=== PATIENT | male | born 1975 | race American Indian/Alaskan Native ===

== ENCOUNTER 2020-04-26 13:24 | Emergency (ER) | payer OTHER, SELFPAY ==
[2020-04-26 13:35] VITALS: BP 104/61; PULSE 91; RESP 18; TEMP 36.9; O2SAT 95; BMI 35.1
--- NOTE | 2020-04-26 13:59 | CT_ITS ---
EXAMINATION: CT ABDOMEN AND PELVIS WITHOUT CONTRAST CLINICAL INFORMATION: Right-sided back pain, evaluate for kidney stone COMPARISON: CT of the abdomen and pelvis 04/09/2018 TECHNIQUE: Multidetector volumetric imaging was performed from the superior aspect of the liver through the pubic symphysis. Sagittal and coronal reformatted images were obtained on the technologist's workstation. This CT examination was performed using dose optimization techniques as appropriate, variously including the following: *Automated exposure control *Adjustment of mA and/or kV according to patient size (this includes techniques or standardized protocols for targeted exams where dose is matched to indication/reason for exam; i.e. extremities or head) *Use of iterative reconstruction technique DLP: 891 mGy-cm FINDINGS: LUNG BASES: The visualized lung bases are unremarkable. LIVER, GALLBLADDER, AND BILIARY TREE: The liver is normal in size, shape, and attenuation. No focal hepatic lesion or biliary ductal dilatation is present. The gallbladder is unremarkable with no evidence of radiopaque gallstones, gallbladder wall thickening, or obvious pericholecystic inflammatory changes. PANCREAS: Unremarkable. SPLEEN: Unremarkable. There are 2 small accessory splenules. ADRENAL GLANDS: Unremarkable. KIDNEYS AND URETERS: Again demonstrated is an atrophic right kidney. Punctate 2 mm nonobstructive, calyces in the inferior pole, similar to the prior study. Normal size and attenuation of the left kidney. Again demonstrated are 2 adjacent nonobstructive calculi in the mid polar region that together measure approximately 0.6 cm. No hydronephrosis. No perinephric stranding. BLADDER: Unremarkable. GASTROINTESTINAL TRACT: The small and large bowel are unremarkable. No evidence of obstruction or inflammatory change. The appendix is unremarkable. Large amount of stool throughout the colon. ABDOMINAL WALL: No significant hernia is appreciated. LYMPH NODES: No significant mesenteric or retroperitoneal lymphadenopathy. VASCULAR: Normal caliber of the aorta. Normal noncontrast appearance of the portal venous system and inferior vena cava. PELVIC VISCERA: The prostate and seminal vesicles are unremarkable. 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 IMPRESSION: Redemonstration of atrophic right kidney. Nonobstructive punctate calculus in the inferior pole of the right kidney and nonobstructive calculi the mid polar region of the left kidney. No hydronephrosis. Large amount of stool within the colon, that may represent constipation. No acute intra-abdominal pathology.
--- NOTE | 2020-04-26 14:36 | ED.CHESTPAIN ---
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 Risk Factors Coronary artery disease risk factors: none Related Data Previous Rx's Medication Instructions Recorded oxycodone-acetaminophen [Percocet] 1 tab PO Q8H PRN #10 tab 04/26/20 Allergies Allergy/AdvReac Type Severity Reaction Status Date / Time No Known Allergies Allergy Unverified 03/26/20 19:03 N.K.D.A. Allergy Unknown Uncoded 04/18/18 00:00 Review of Systems Review of Systems: Yes all other systems are reviewed and are negative Constitutional: Constitutional: Reports as per HPI and Reports no additional constitutional complaints Eyes: Eyes: Reports as per HPI and Reports no additional eye complaints ENT: Reports system reviewed and no additional complaints, except as documented and Reports as per HPI Cardiovascular: Cardiovascular: Reports as per HPI and Reports no additional cardiovascular complaints Respiratory: Respiratory: Reports as per HPI and Reports no additional respiratory complaints Gastrointestinal: Gastrointestinal: Reports as per HPI and Reports no additional gastrointestinal complaints Genitourinary: Genitourinary: Reports no additional male genitourinary complaints Musculoskeletal: Musculoskeletal: Reports back pain Neurologic: Reports system reviewed and no additional complaints, except as documented and Reports Abnormal speech present Psychiatric: Psychiatric: Reports no additional psychiatric complaints [facility] Past Medical History Attestation statement: The following information was validated with the patient. Medical History Hypertension Social History Social History Alcohol intake: never Smoking Status: Never smoker Use of substances other than those prescribed or required for medical reasons: No Advance Directives: No Advance Directives Information Provided: No Physical Exam Vital Signs: Vital Signs: Vital Signs Temp Pulse Resp BP Pulse Ox 04/26/20 15:19 98.3 F 63 18 97/64 97 04/26/20 13:35 98.5 F 91 18 104/61 95 Body Mass Index 35.1 Const: General: cooperative and healthy appearing Orientation/consciousness: oriented to person HENMT: Head: Yes normal to inspection Ears: hearing grossly normal bilaterally General nose exam: Normal external nose present Eyes: General: appearance normal, both eyes and all related structures Neck: Neck: Yes normal visual inspection, Yes full ROM and Yes no lymphadenopathy Chest: Chest palpation & inspection: normal inspection of the chest and normal palpation of entire chest wall Resp: Effort & Inspection: normal respiratory effort and able to speak in complete sentences Auscultation: clear to auscultation bilaterally Cardio: Jugular venous distension: no JVD Palpation: normal PMI Rate: regular rate Rhythm: regular rhythm GI: Inspection: Yes normal to inspection Palpation (GI): Soft to palpation, nontender, no guarding and not rigid : General: Yes no CVA tenderness Back/Spine/Pelvis: Back: no CVA tenderness and No back tenderness Skin: General skin exam: no rashes or lesions noted Neuro: General: oriented to person Cranial nerves: Yes CN's II-XII intact bilaterally Cognition (Neuro): normal cognition Speech: Abnormal speech present Gait exam (Neuro): Normal gait present Extrem: General: Yes normal to inspection Course Course Course Narrative: 45-year-old male with history of hypertension presented with chest pain for few months/ weeks which is nonspecific, he also been complaining of lower back pain ( 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 Patient stated that the back pain started after he coughed felt something pop in his back cause the pain. Will check EKG, troponin, CPK (to rule out rhabdomyolysis), CT rule out kidney related pain versus hematoma in the psoas muscle. MDM - Chest Pain MDM Narrative Medical decision making narrative: assessment and plan. 45-year-old male presented with few months of chest pain, patient has unremarkable EKG and negative troponin. Patient also is complaining of back pain for the last few weeks no trauma, CT of the abdomen and pelvis ruled out kidney issues CT of the abdomen and pelvis also rule out acute fracture of the lumbar spine. Will discharge patient with prescription of Percocet. Follow-up with PCP. Lab Data Result diagrams: 04/26/20 14:35 04/26/20 14:35 Labs: Lab Results 04/26/20 04/26/20 04/26/20 Range/Units 14:35 14:35 14:35 WBC 6.2 (4.8-10.8) X10*3/uL RBC 4.82 (4.60-5.80) X10*6/uL Hgb 14.0 (14.0-18.0) g/dl Hct 42.7 (42-52) % MCV 88.6 (80-98) fL MCH 29.0 (27.0-33.0) pg MCHC 32.8 (31.0-36.0) g/dl RDW 12.6 (11.0-16.0) % Plt Count 226 (160-400) X10*3/uL MPV 9.4 (9.4-12.4) fL Absolute Nucleated RBC 0.000 (0.0-0.012) X10*3/uL Nucleated RBC % (auto) 0.0 (0.0-0.2) /100WBC Sodium 142 (135-145) mmol/L Potassium 5.0 (3.3-5.1) mmol/l Chloride 101 (96-108) mmol/L Carbon Dioxide 35 H (22-29) mmol/L Anion Gap 11 L (12-20) BUN 13 (9-16) mg/dL Creatinine 1.00 (0.5-1.4) mg/dL Estim Creat Clear Calc 115.3 Estimated GFR > 60 Random Glucose 104 (60-115) mg/dL Calcium 9.9 (8.4-10.2) mg/dL Total Bilirubin (0.0-1.0) mg/dL Direct Bilirubin (0.0-0.5) mg/dL AST (5-37) U/L ALT (0-40) U/L Alkaline Phosphatase (39-117) U/L Total Creatine Kinase Cancelled 63 Troponin I High Sens (<3.5-35.0) ng/L Total Protein (6.5-8.0) g/dL Albumin (3.5-5.0) g/dL Lipase (8-78) U/L Urine Color Urine Appearance Urine pH (5.0-8.0) Ur Specific [place] (1.005-1.025) Urine Protein (NEG-TRACE) MG/DL Urine Glucose (UA) (NEG) MG/DL Urine Ketones (NEG) MG/DL Urine Blood (NEG) Urine Nitrite (NEG) Ur Leukocyte Esterase (NEG) Urine RBC (0) /HPF Urine WBC (0-4) /HPF Ur Squamous Epith Cells /LPF Urine Bacteria /LPF 04/26/20 04/26/20 04/26/20 Range/Units 14:35 14:35 14:49 WBC (4.8-10.8) X10*3/uL RBC (4.60-5.80) X10*6/uL Hgb (14.0-18.0) g/dl Hct (42-52) % MCV (80-98) fL MCH (27.0-33.0) pg MCHC (31.0-36.0) g/dl RDW (11.0-16.0) % Plt Count (160-400) X10*3/uL MPV (9.4-12.4) fL Absolute Nucleated RBC (0.0-0.012) X10*3/uL Nucleated RBC % (auto) (0.0-0.2) /100WBC Sodium (135-145) mmol/L Potassium (3.3-5.1) mmol/l Chloride (96-108) mmol/L Carbon Dioxide (22-29) mmol/L Anion Gap (12-20) BUN (9-16) mg/dL Creatinine (0.5-1.4) mg/dL Estim Creat Clear Calc Estimated GFR Random Glucose (60-115) mg/dL Calcium (8.4-10.2) mg/dL Total Bilirubin 0.2 (0.0-1.0) mg/dL Direct Bilirubin < 0.2 (0.0-0.5) mg/dL AST 35 (5-37) U/L ALT 39 (0-40) U/L Alkaline Phosphatase 100 (39-117) U/L Total Creatine Kinase Troponin I High Sens < 3.5 (<3.5-35.0) ng/L Total Protein 7.2 (6.5-8.0) g/dL Albumin 4.0 (3.5-5.0) g/dL Lipase 14 (8-78) U/L Urine Color YELLOW Urine Appearance HAZY Urine pH 6.0 (5.0-8.0) Ur Specific [place] >= 1.030 H (1.005-1.025) Urine Protein NEG (NEG-TRACE) MG/DL Urine Glucose (UA) NEG (NEG) MG/DL Urine Ketones 5 (NEG) MG/DL Urine Blood TRACE (NEG) Urine Nitrite NEG (NEG) Ur Leukocyte Esterase NEG (NEG) Urine RBC 0-2 (0) /HPF Urine WBC 0-2 (0-4) /HPF Ur Squamous Epith Cells NONE /LPF Urine Bacteria NONE /LPF Imaging Data CT scan - abdomen: Radiologist's impression: No acute pathology. ECG Data ECG #1: Interpretation: normal sinus rhythm at 72 beats per minutes, normal axis deviation, normal intervals, no ST-T elevation. Discharge Plan Discharge Clinical Impression: Chest pain Qualifiers: Chest pain type: unspecified Qualified Code(s): R07.9 - Chest pain, unspecified Back pain Qualifiers: Back pain location: low back pain Chronicity: chronic Patient Disposition: Home, Self-Care Instructions: Chest Pain (ED), Acute Low Back Pain (ED) Prescriptions: New oxycodone-acetaminophen [Percocet] 5-325 mg tablet 1 tab PO Q8H PRN (Reason: pain) Qty: 10 RF: 0 Referrals: Cynthia Adhikari MD [Primary Care Provider] - 2 days Stand Alone Forms: Work/School Release
--- NOTE | 2020-04-26 14:37 | ECG_ITS ---
Test Reason : BACKPAIN Blood Pressure : / mmHG Vent. Rate : 072 BPM Atrial Rate : 072 BPM P-R Int : 160 ms QRS Dur : 090 ms QT Int : 390 ms P-R-T Axes : 041 008 -03 degrees QTc Int : 427 ms Normal sinus rhythm Nonspecific T wave abnormality Inferior leads Abnormal ECG When compared with ECG of 22-MAY-2018 21:06, No significant change was found Referred By: Mary Nelson Electronically Signed By:AMANDO JAMISON MD
[2020-04-26 14:44] LABS: Hematocrit 42.7 % (42-52); Mean Corpuscular HGB Conc 32.8 g/dl (31.0-36.0); Mean Corpuscular Volume 88.6 fL (80-98); Mean Platelet Volume 9.4 fL (9.4-12.4); Platelet Count 226 X10*3/uL (160-400); Red Blood Count 4.82 X10*6/uL (4.60-5.80); Red Cell Distribution Width 12.6 % (11.0-16.0); White Blood Count 6.2 X10*3/uL (4.8-10.8)
[2020-04-26 14:47] LABS: Glucose Urine UA NEG (NEG); Leukocyte Esterase Urine NEG (NEG); Nitrite Urine NEG (NEG); Specific Gravity - Urine >= 1.030 (1.005-1.025); Urine Blood TRACE (NEG); Urine Ketones 5 MG/DL (NEG); Urine Protein NEG (NEG-TRACE)
[2020-04-26 14:48] LABS: Appearance Urine HAZY; Color Urine YELLOW
[2020-04-26 14:58] LABS: RBC Urine 0-2 /HPF (0); WBC Urine 0-2 /HPF (0-4)
[2020-04-26] MEDS: Ibuprofen 600 MG TABLET PO (15:08)
[2020-04-26] MEDS: oxyCODONE HCl Immed Release 5 MG TABLET PO (15:09)
[2020-04-26 15:11] LABS: Anion Gap 11 (12-20); Blood Urea Nitrogen 13 mg/dL (9-16); Calcium 9.9 mg/dL (8.4-10.2); Carbon Dioxide 35 mmol/L (22-29); Chloride 101 mmol/L (96-108); Creatinine Clr Calc Pharmacy 115.3; Estimated Glomerular Filt Rate > 60; Glucose Random 104 mg/dL (60-115); Sodium 142 mmol/L (135-145)
--- NOTE | 2020-04-26 15:11 | PC.NURSE ---
PT WAS MEDICATED FOR PAIN AFTER RETURN FROM CT SCAN
[2020-04-26 15:12] LABS: Alanine Aminotransferase 39 U/L (0-40); Alkaline Phosphatase 100 U/L (39-117); Aspartate Amino Transferase 35 U/L (5-37); Bilirubin Direct < 0.2 mg/dL (0.0-0.5); Bilirubin Total 0.2 mg/dL (0.0-1.0); Lipase 14 U/L (8-78); Total Protein 7.2 g/dL (6.5-8.0)
[2020-04-26 15:19] VITALS: BP 97/64; PULSE 63; RESP 18; TEMP 36.8; O2SAT 97
[2020-04-26 15:39] LABS: Troponin-I High Sensitivity < 3.5 ng/L (<3.5-35.0)
[2020-04-26 16:00] VITALS: BP 118/75; PULSE 74; RESP 16; TEMP 36.6; O2SAT 96
== END 2020-04-26 16:28 | disposition home or self-care (01) ==
PROVIDERS: Emergency Provider Emergency Medicine; PCP Internal Medicine
DX: R07.9 Chest pain, unspecified (principal); G89.29 Other chronic pain; M54.5 Low back pain; I10 Essential (primary) hypertension
CPT/HCPCS: 36415; 74176; 80048; 80076; 81001; 82550; 83690; 84484; 85027; 93005; 99284; 99285

== ENCOUNTER 2020-05-04 12:08 | Emergency (ER) | payer OTHER, SELFPAY ==
[2020-05-04 13:29] VITALS: BP 103/61; PULSE 86; RESP 16; TEMP 36.9; O2SAT 97; BMI 36.5
--- NOTE | 2020-05-04 15:20 | ED.GENADULT ---
HPI - General Adult General Chief complaint: General Medical Stated complaint: BACK PAIN Time Seen by Provider: 05/04/20 14:22 Source: patient Mode of arrival: ambulatory History of Present Illness HPI narrative: 45-year-old male with a past medical history of hypertension presenting to ED complaining of bilateral low back pain greater on the left x1 month with associated radiation down b/l LE. Also reports pain worse with movement, constant, with assoc nausea. states was seen and treated in the ED recently for similar symptoms and had negative workup. Denies fever, chills, vomiting / diarrhea, abdominal pain, numbness/ tingling, incontinence/retention, dysuria /hematuria Related Data Previous Rx's Medication Instructions Recorded oxycodone-acetaminophen [Percocet] 1 tab PO Q8H PRN #10 tab 04/26/20 acetaminophen [Tylenol Extra 500 mg PO Q6H PRN #20 tab 05/04/20 Strength] cyclobenzaprine 5 mg PO Q8H PRN 5 Days #14 tab 05/04/20 lidocaine [Lidoderm] 1 patch TOPICAL DAILY PRN #30 ea 05/04/20 MDD remove after 12 hours naproxen 500 mg PO BID PRN 10 Days #20 tab 05/04/20 Allergies Allergy/AdvReac Type Severity Reaction Status Date / Time No Known Allergies Allergy Verified 05/04/20 13:31 N.K.D.A. Allergy Unknown Unknown Uncoded 05/04/20 13:31 Review of Systems Review of Systems: Constitutional: No Weight loss, No Fever, No Chills Gastrointestinal: + Nausea, No Vomiting, No Diarrhea, No Constipation, No Abdominal pain Genitourinary: No Dysuria, No Urinary Frequency, No Hematuria, No Urinary Incontinence, No Urgency Musculoskeletal: +back pain, No joint pain, No Myalgias, No Joint Swelling Skin: No Skin Lesions, No rash Neuro: No Weakness, No Numbness, No Paresthesias Yes all other systems are reviewed and are negative [facility] Past Medical History Attestation statement: The following information was validated with the patient. Source: old records reviewed and nursing notes reviewed Medical History Hypertension Social History Social History Alcohol intake: never Smoking Status: Never smoker Advance Directives: No Advance Directives Information Provided: No Physical Exam Vital Signs: Vital Signs: Vital Signs Temp Pulse Resp BP Pulse Ox 05/04/20 13:29 98.4 F 86 16 103/61 97 Body Mass Index 36.5 Const: General: cooperative and healthy appearing Orientation/consciousness: patient oriented x3 Limitations: no limitations HENMT: Head: Yes normal to inspection Ears: hearing grossly normal bilaterally General nose exam: Normal external nose present Face and sinus: Yes normal facial exam Eyes: General: appearance normal, both eyes and all related structures EOM: EOMs intact bilaterally Neck: Other: no midline cervical spinous tenderness Neck: Yes normal visual inspection Resp: Effort & Inspection: normal respiratory effort Cardio: Peripheral pulses: Peripheral pulses 2+ throughout GI: Inspection: Yes normal to inspection Palpation (GI): Soft to palpation, nontender, no guarding and not rigid Back/Spine/Pelvis: Other: no midline thoracic / lumbar spinous tenderness. +MSK bilateral lumbar tenderness with palpable muscle spasm and left lumbar area Skin: Rashes: no rashes Wounds: no wounds Neuro: Other: no saddle anesthesia. FROM/NV intact Ambulating with cane due to pain General: patient oriented x3 Gait exam (Neuro): Normal gait present Extrem: General: Yes normal to inspection Course Course Course Narrative: -1530-- UA negative, no blood Medical Decision Making MDM Narrative Medical decision making narrative: 45-year-old male with a past medical history of hypertension presenting to ED complaining of bilateral low back pain greater on the left x1 month with associated radiation down b/l LE. On exam VSS, NAD /well-appearing, no midline spinous tenderness throughout. + MSK lumbar tenderness. No red flag symptoms or No CVAT. labs & CT/AP reviewed from 04/26 and without acute pathology. patient reports continued pain x1 month. Likely MSK. Low concern for renal stone/colic or pyelo. Low concern for cauda equina /cord compression Plan: UA Discharge Plan Discharge Clinical Impression: Back pain with radiation Patient Disposition: Home, Self-Care Instructions: Back Pain (ED) Additional Instructions: Your pain is likely musculoskeletal Flexeril is a muscle relaxer, take at night as it makes you drowsy, do not drive, drink alcohol, or operate machinery while taking it Naproxen as an anti-inflammatory / pain medication, take with food Lidoderm patches are numbing patches, apply to painful area In addition take Tylenol at home If symptoms persist or worsen, pain becomes unbearable, you developed urinary retention or incontinence, or weakness return to the ED Prescriptions: New acetaminophen [Tylenol Extra Strength] 500 mg tablet 500 mg PO Q6H PRN (Reason: pain or fever) Qty: 20 RF: 0 lidocaine [Lidoderm] 5 % adhesive patch,medicated 1 patch topical DAILY MDD remove after 12 hours PRN (Reason: pain) Qty: 30 RF: 0 naproxen 500 mg tablet 500 mg PO BID PRN (Reason: pain) 10 Days Qty: 20 RF: 0 cyclobenzaprine 5 mg tablet 5 mg PO Q8H PRN (Reason: pain (scale score 7-10)) 5 Days Qty: 14 RF: 0 No Action oxycodone-acetaminophen [Percocet] 5-325 mg tablet 1 tab PO Q8H PRN (Reason: pain) Qty: 10 RF: 0 Referrals: Cynthia Adhikari MD [Primary Care Provider] - 2 days
[2020-05-04 15:21] LABS: Glucose Urine UA NEG (NEG); Leukocyte Esterase Urine NEG (NEG); Nitrite Urine NEG (NEG); PH 6.5 (5.0-8.0); Urine Blood NEG (NEG); Urine Ketones NEG (NEG); Urine Protein NEG (NEG-TRACE)
[2020-05-04 15:26] LABS: Appearance Urine CLEAR; Color Urine YELLOW
[2020-05-04] MEDS: Ketorolac Tromethamine 15 MG/ML VIAL IM (15:56)
[2020-05-04] MEDS: Cyclobenzaprine HCl 5 MG TABLET PO (15:56)
== END 2020-05-04 16:36 | disposition home or self-care (01) ==
PROVIDERS: Physician Assistant; Emergency Provider Emergency Medicine; PCP Internal Medicine
DX: M54.5 Low back pain (principal); M79.662 Pain in left lower leg; M79.661 Pain in right lower leg; Z79.899 Other long term (current) drug therapy
CPT/HCPCS: 81003; 96372; 99282; 99284; J1885

== ENCOUNTER 2020-06-16 07:50 | Outpatient (REF) | payer OTHER, SELFPAY | END 2020-06-16 07:51 | disposition home or self-care (01) | LOC: HO.LAB 07:50 | PROVIDERS: PCP Internal Medicine; Visit Provider Internal Medicine | DX: Z20.828 Contact with and (suspected) exposure to other viral communicable diseases (principal) | CPT/HCPCS: C9803; U0003 ==

== ENCOUNTER 2021-02-11 08:26 | Inpatient (IN) | payer OTHER, SELFPAY ==
[2021-02-11] VITALS (10 sets, daily range): BP systolic 116–146; BP diastolic 79–93; PULSE 77–126; RESP 16–31; TEMP 36.6–37.7; O2SAT 92–98; BMI 33.5
--- NOTE | ~2021-02-11 | XR_ITS ---
EXAMINATION: XR CHEST CLINICAL INFORMATION: Shortness of breath and hemoptysis COMPARISON: CT of the abdomen of April 26, 2020 and of the chest of May 22, 2018 TECHNIQUE: 2 views of the chest were obtained. FINDINGS: There are bilateral lower lobe regions of disease which may be related to atelectasis or pneumonitis. There also appears to be a small left pleural effusion. Heart normal size. No evidence of pulmonary edema. No pneumothorax. Small lung volumes. XR/XR chest 2V IMPRESSION: Bilateral lower lobe disease which may be related to atelectasis or pneumonitis.
--- NOTE | ~2021-02-11 | CT_ITS ---
EXAMINATION: CT ANGIOGRAM OF THE CHEST WITH AND WITHOUT CONTRAST (CT PULMONARY ANGIOGRAM FOR PE) CLINICAL INFORMATION: Reason for Exam pt with cough and hemoptysis COMPARISON: Chest radiographs 02/11/2021, CT chest with intravenous contrast 05/22/2018 TECHNIQUE: Prior to contrast administration, noncontrast localization images were obtained. Subsequently, multidetector volumetric imaging was performed from the thoracic inlet to below the diaphragms following the administration of 85 mL Omnipaque 350 intravenous contrast. No contrast reaction reported Sagittal, coronal, and MIP oblique sagittal reformatted images were obtained on the CT workstation, uploaded to PACS, and reviewed. This CT examination was performed using dose optimization techniques as appropriate, variously including the following: *Automated exposure control *Adjustment of mA and/or kV according to patient size (this includes techniques or standardized protocols for targeted exams where dose is matched to indication/reason for exam; i.e. extremities or head) *Use of iterative reconstruction technique Total exam dose-length product 322 mGy-cm FINDINGS: QUALITY OF STUDY/CONTRAST BOLUS: Satisfactory. PULMONARY ARTERIES: There are linear filling defects present in the left and right main pulmonary arteries, large clot burden at distal right main pulmonary artery and right lower lobe pulmonary artery. There is filling defects in the segmental branches bilateral upper and lower lobes. Lower lobe evaluation is limited by patient respiratory motion artifact. THORACIC AORTA: No thoracic aortic dissection or aneurysmal enlargement. LUNG: There are low lung volumes. Artifact is present from respiratory motion. Bilateral posterior basilar atelectasis and some airspace opacities are present. There is some linear mucus stranding in the proximal left main bronchus. PLEURA: No pneumothorax. No pleural thickening. Question trace effusion on right. MEDIASTINUM: Heart is upper limits of normal size. No pericardial effusion. The pulmonary artery is slightly larger than the aorta consistent with pulmonary hypertension. There is mild septal bowing consistent with right heart strain. No pericardial effusion. No mediastinal mass or adenopathy. CHEST WALL/AXILLA: No axillary or internal mammary lymphadenopathy. OSSEOUS STRUCTURES: No acute bony abnormality. Probable small thoracic vertebral hemangiomas mid thoracic spine. No erosive changes. No paraspinal soft tissue swelling. UPPER ABDOMEN: No reflux of contrast into the hepatic veins. Upper abdomen unremarkable. Results called and discussed with ALEX Chao in the Emergency Department at [address]/CT angio chest PE protocol IMPRESSION: 1. Positive for pulmonary embolism including involvement left and right main pulmonary arteries. 2. Mild pulmonary hypertension and right heart strain. No pericardial effusion. 3. Low lung volumes. Motion artifact. Bibasilar atelectasis and posterior basilar opacities similar to recent chest x-ray. VTE: positive
--- NOTE | ~2021-02-11 | US_ITS ---
EXAMINATION: US VENOUS ULTRASOUND WITH DOPPLER LOWER EXTREMITY, BILATERAL CLINICAL INFORMATION: Known pulmonary embolism. COMPARISON: None TECHNIQUE: Ultrasound of the deep veins is performed from the hip to the calf with compression sonography and color and pulse Doppler assessment. Spectral analysis with color-flow imaging is performed. FINDINGS: RIGHT: There is normal venous compression and respiratory variation and augmented flow. The visualized common femoral vein, superficial femoral vein, profunda femoral vein, popliteal vein, and the trifurcation region shows no evidence of deep venous thrombosis. There is no significant popliteal fossa cyst. LEFT: The visualized common femoral vein, superficial femoral vein, and profunda femoral vein show no evidence of deep venous thrombosis. Occlusive thrombus present within the popliteal vein extending into the posterior tibial vein. There is no significant popliteal fossa cyst. If the patient's symptoms persist, followup ultrasound in 5 days 7 days might be of value to exclude proximal propagation from a non-visualized calf vein. US/US venous duplex LE IMPRESSION: * DVT present within the LEFT popliteal vein and posterior tibial vein. * No DVT demonstrated in the right lower extremity.
--- NOTE | 2021-02-11 09:43 | ECG_ITS ---
Test Reason : DIFF BREATHING Blood Pressure : / mmHG Vent. Rate : 081 BPM Atrial Rate : 081 BPM P-R Int : 146 ms QRS Dur : 084 ms QT Int : 378 ms P-R-T Axes : 040 001 -10 degrees QTc Int : 439 ms Normal sinus rhythm Nonspecific T wave changes inferior leads Abnormal ECG When compared with ECG of 26-APR-2020 14:52, No significant change was found Referred By: Irina Kennedy Electronically Signed By:Jaun Jacobson
[2021-02-11] MEDS: guaiFEN/Codeine SF 200/20/10ML 10 ML LIQUID PO (10:18)
--- NOTE | 2021-02-11 10:20 | PC.NURSE ---
pt alert and oriented x3, vss, lscta. pt states he has been having chest pain and coughing up blood tinged sputum for about a month now. pt complain of chest discomfort with cough. he also c/o sob, no difficulty breathing, no respiratory distress. Pt is not on any prescriptive meds. Pt states he has not seen a healthcare provider since symptoms started. No apparent distress noted. at bedside.
[2021-02-11 12:15] LABS: MANUAL DIFF FLAG NO
[2021-02-11] MEDS: Morphine Sulfate 4 MG/ML CARTRIDGE IVPUSH (12:15)
[2021-02-11 12:33] LABS: Basophils Percent Auto 0.4 % (0-2); Eosinophils Absolute Auto 0.1 X10*3/uL (0.0-0.4); Eosinophils Percent Auto 0.9 % (0-4); Hematocrit 42.7 % (42-52); Hemoglobin 13.9 g/dl (14.0-18.0); Imm Gran Abs Auto 0.05 X10*3/uL (0.00-0.03); Imm Gran Pct Auto 0.5 % (0.0-0.4); Lymphocytes Absolute Auto 1.7 X10*3/uL (1.2-4.9); Lymphocytes Percent Auto 16.6 % (20-40); Mean Corpuscular HGB Conc 32.6 g/dl (31.0-36.0); Mean Corpuscular Hemoglobin 27.5 pg (27.0-33.0); Mean Corpuscular Volume 84.4 fL (80-98); Mean Platelet Volume 9.9 fL (9.4-12.4); Monocytes Percent Auto 9.7 % (2-11); Neutrophils Absolute Auto 7.4 X10*3/uL (2.0-8.3); Neutrophils Percent Auto 71.9 % (45-73); Platelet Count 187 X10*3/uL (160-400); Red Blood Count 5.06 X10*6/uL (4.60-5.80); White Blood Count 10.3 X10*3/uL (4.8-10.8)
[2021-02-11 12:36] LABS: INTERNATIONAL NORM RATIO 1.1 (0.9-1.1); Prothrombin Time 12.8 SEC (9.9-13.0)
[2021-02-11 12:38] LABS: Partial Thromboplastin Time 38.1 SEC (24.1-38.0)
--- NOTE | 2021-02-11 12:48 | ED_ITS ---
HPI - Chest Pain General Chief Complaint: General Medical Stated Complaint: difficulty breathing/ thick mucus with blood Time Seen by Provider: 02/11/21 08:36 Source: patient and family Mode of arrival: ambulatory Limitations: language barrier (Faroese-speaking) History of Present Illness HPI narrative: 45-year-old male with a past medical history of hypertension presenting to the ED with complaints of chest pain right-sided that radiates to his back with associated shortness of breath/dyspnea on exertion/orthopnea and cough with hemoptysis for the past 2 days worse today. Reports he is spitting up sick white/yellow/green colored mucus any has blood streaks in it. He denies any fevers, chills, headaches, dizziness, change in vision, nausea/vomiting, radiation of the chest pain, paresthesias, abdominal pain, diarrhea, constipation, black or bloody stools, palpitations, dysuria, hematuria, lower extremity edema or calf tenderness, recent travel or sick contacts or any other symptoms complaints or concerns at this time. 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 Reports he is also on methadone. Reports he had surgery approximately [address] Haney as for a cyst x 6 months ago. He denies a history of cancer, recent immobilization or history of PE or DVT. MD complaint: chest pain and chest discomfort Pertinent past history: other (Hypertension) Onset (ago): day(s) (Two days) Timing of current episode: constant and still present Prior episodes: No Onset: other (Cannot recall) Pain location: right chest Pain radiation: back Severity: severe Pain scale (0-10): 10 Quality: tightness, aching, heaviness, sharp and shooting Relieving factors: nothing Exacerbating factors: exertion, inspiration, supine, palpation, movement and other (Coughing) Context: recent surgery (Six months ago) Associated symptoms: dyspnea and cough Treatment prior to arrival: none Risk Factors Coronary artery disease risk factors: hypertension Thoracic aortic dissection risk factors: none Related Data Previous Rx's Medication Instructions Recorded oxycodone-acetaminophen 5 mg-325 1 tab PO Q8H PRN #10 tab 04/26/20 mg tablet (Percocet) acetaminophen 500 mg tablet 500 mg PO Q6H PRN #20 tab 05/04/20 (Tylenol Extra Strength) cyclobenzaprine 5 mg tablet 5 mg PO Q8H PRN 5 Days #14 tab 05/04/20 lidocaine 5 % topical patch 1 patch TOPICAL DAILY PRN #30 ea 05/04/20 (Lidoderm) MDD remove after 12 hours naproxen 500 mg tablet 500 mg PO BID PRN 10 Days #20 tab 05/04/20 Allergies Allergy/AdvReac Type Severity Reaction Status Date / Time No Known Allergies Allergy Verified 02/11/21 08:35 N.K.D.A. Allergy Unknown Unknown Uncoded 05/04/20 13:31 Review of Systems Review of Systems: Constitutional : No Weight loss, No Fever, No Chills, No Night Sweats, No Fatigue, No Malaise ENT/Mouth : No Hearing loss, No Ear Pain, No Nasal Congestion, No Sinus Pain, No Hoarseness, No sore throat, No Rhinorrhea, No Swallowing Difficulty Eyes: No Eye Pain, No Swelling, No Redness, No Foreign Body, No Discharge, No Vision Changes Cardiovascular : Positive right-sided chest pain with associated shortness of breath/dyspnea on exertion/orthopnea, No Edema, No extremity swelling, No Palpitations Respiratory : Positive Cough with thick white/yellow/green with blood streaks sputum, No Wheezing Gastrointestinal : No Nausea, No Vomiting, No Diarrhea, No abdominal Pain, No Hematochezia, No Melena Genitourinary : No irregular bleeding, No Dysuria, No Urinary Frequency, No Hematuria, No Urinary Incontinence, No Urgency, No Flank Pain, No Urinary Flow Changes, No Hesitancy Musculoskeletal : No joint pain, No Myalgias, No Joint Swelling Skin : No Skin Lesions, No rash Neuro : No Weakness, No Numbness, No Paresthesias, No Loss of Consciousness, No Dizziness, No Headache Psych : No Anxiety/Panic, No Depression, No SI/HI/AH/VH Heme/Lymph: No Bruising, No Bleeding,No Lymphadenopathy Endocrine : No Polyuria, No Polydipsia, No Temperature Intolerance Yes all other systems are reviewed and are negative [facility] Past Medical History Attestation statement: The following information was validated with the patient. Medical History Hypertension Social History Social History Alcohol intake: never Advance Directives: No Advance Directives Information Provided: Yes Physical Exam Vital Signs: Vital Signs: Last Vital Signs Temp 98 F 02/11/21 08:32 Pulse 77 02/11/21 12:22 Resp 20 02/11/21 12:22 BP 136/79 02/11/21 12:22 Pulse Ox 92 02/11/21 12:22 Body Mass Index 33.5 vital signs have been reviewed as normal and appeared to be correct. Blood pressure normal. Heart rate normal. Respiration rate tachypneic at 28. Temperature normal. Oxygen saturation low at 92 to 94% on room air. Appearance: Alert. Oriented X3. No acute distress. Head: Normal external exam. Normocephalic. Atraumatic. Eyes: PERRLA. EOMI. Conjunctiva and sclera normal. Eyelids normal. ENT: EAC normal. TM's Normal. Pharynx normal. Uvula midline. Moist mucous membranes. Neck: Normal inspection. Neck supple. FROM. No adenopathy. No meningeal signs. CVS: Normal heart rate and rhythm. Heart sound normal. Pulses normal throughout. No murmurs/rales/gallops. Respiratory: No respiratory distress. Painless inspiration. Breath sounds normal. No wheezes/rales/rhonchi noted. Positive anterior chest wall tenderness. Not consistent with flail chest. No crepitus is noted. No accessory muscle usage noted or decreased air movement noted. Abdomen: Soft and nontender. Bowel sounds normal in all 4 quadrants. No distention noted. No organomegaly noted. No visible injury noted. Back: No CVA tenderness. Full range of motion noted. No rashes/lesion/induration/fluctuance or signs of infection noted. Skin: Skin warm and dry. Normal skin color. Normal skin turgor. No rashes/lesions/lacerations noted. Extremities: No lower extremity edema. No calf tenderness is noted. Extremities exhibit normal range of motion. Extremities nontender. Neuro: Oriented X 3. No motor deficit. No sensory deficit. Reflexes normal. Normal steady gait. No focal neuro deficits noted. Vascular: + radial pulses/+ 2 distal pedal pulses/+2 dorsalis pedis b/l. Normal cap refill. No cyanosis noted to upper extremity nails and lower extremity toes nails. Course Course Course Narrative: 9:45am - 45-year-old male presenting to the ED with complaints of chest pain right- sided that radiates to back with associated shortness of breath/dyspnea on exertion/orthopnea and cough with hemoptysis for the past 2 days worse today. Reports he is spitting up sick white/yellow/green colored mucus any has blood streaks in it. History of anterior cyst surgery removal by general surgeon approximately 6 months ago. History of IV drug use last use 2 days ago. Plan: Labs, EKG, chest x-ray, flu swab provide 10 mg of Robitussin with codeine, 4 mg of Zofran and 4 mg of morphine and re-evaluate. Reevaluation(s) Reevaluation #1: - labs return patient's hemoglobin is 13.9. D-dimer elevated at 2796. BUN 8. Random glucose 126. Alkaline phosphate 118. Troponin 3.6. Otherwise all other labs are within normal limits. UA within normal limits no evidence of UTI. - CXR Bilateral lower lobe disease which may be related to atelectasis or pneumonitis. - pending repeat troponin at 15:[address] of chest for PE will re-evaluate. Time: 13:02 Reevaluation #2: - I was called by the radiologist and he reported that the patient had a central pulmonary embolism left and right pulmonary arteries were involved and left lower lobe arteries and submental arteries. He reported no right heart strain noted at this time. - therefore Dr. Anton and I went into the room and he performed a bedside ultrasound we sent videos to Dr. Jacobson the [employer] and [employer] - then I was called back by the radiologist approximately 10 minutes later and he reported that reviewing the CTA of chest for PE he noticed that the patient does have septal bowing and pulmonary hypertension and he believes the patient may have mild heart strain - I explained this to the [employer]raiser [employer] and he reported that the patient can be started as heparin as a bolus and a drip and the patient is hemodynamically stable therefore he can be admitted to the intermediate floor for further evaluation and treatment. - Dr. Jacobson recommended obtaining blood cultures and lactic acid although he reported that we should not give any antibiotics and to the blood cultures returned therefore blood cultures and lactic acid ordered at this time. - Pt understands agrees with this plan and he was updated with his diagnosis. Time: 17:05 [facility] - Chest Pain Medical Records Data Attestation: I reviewed the patient's medical records. Lab Data Attestation: I reviewed the patient's lab results. Result diagrams: 02/11/21 12:05 02/11/21 12:05 Labs: Lab Results 02/11/21 02/11/21 02/11/21 Range/Units 12:05 12:05 12:05 WBC 10.3 (4.8-10.8) X10*3/uL RBC 5.06 (4.60-5.80) X10*6/uL Hgb 13.9 L (14.0-18.0) g/dl Hct 42.7 (42-52) % MCV 84.4 (80-98) fL MCH 27.5 (27.0-33.0) pg MCHC 32.6 (31.0-36.0) g/dl RDW 13.0 (11.0-16.0) % Plt Count 187 (160-400) X10*3/uL MPV 9.9 (9.4-12.4) fL Immature Gran % (Auto) 0.5 H (0.0-0.4) % Neut % (Auto) 71.9 (45-73) % Lymph % (Auto) 16.6 L (20-40) % Dickey % (Auto) 9.7 (2-11) % Eos % (Auto) 0.9 (0-4) % Baso % (Auto) 0.4 (0-2) % Lymph # (Auto) 1.7 (1.2-4.9) X10*3/uL Dickey # (Auto) 1.0 (0.1-1.2) X10*3/uL Eos # (Auto) 0.1 (0.0-0.4) X10*3/uL Baso # (Auto) 0.0 (0.0-0.2) X10*3/uL Abs Immat Gran (auto) 0.05 H (0.00-0.03) X10*3/uL Absolute Neuts (auto) 7.4 (2.0-8.3) X10*3/uL Absolute Nucleated RBC 0.000 (0.0-0.012) X10*3/uL Nucleated RBC % (auto) 0.0 (0.0-0.2) /100WBC PT 12.8 (9.9-13.0) SEC INR 1.1 (0.9-1.1) APTT 38.1 H (24.1-38.0) SEC D-Dimer 2796 NG/ML Sodium (135-145) mmol/L Potassium (3.3-5.1) mmol/L Chloride (96-108) mmol/L Carbon Dioxide (22-29) mmol/L Anion Gap (12-20) BUN (9-16) mg/dL Creatinine (0.5-1.4) mg/dL Estim Creat Clear Calc Estimated GFR Random Glucose (60-115) mg/dL Calcium (8.4-10.2) mg/dL Magnesium 2.3 (1.6-2.6) mg/dL Total Bilirubin (0.0-1.0) mg/dL AST (5-37) U/L ALT (0-40) U/L Alkaline Phosphatase (39-117) U/L Troponin I High Sens (<3.5-35.0) ng/L B-Natriuretic Peptide (<100) pg/mL Total Protein (6.5-8.0) g/dL Albumin (3.5-5.0) g/dL Urine Color Urine Appearance Urine pH (5.0-8.0) Ur Specific Wilmot (1.005-1.025) Urine Protein (NEG-TRACE) MG/DL Urine Glucose (UA) (NEG) MG/DL Urine Ketones (NEG) MG/DL Urine Blood (NEG) Urine Nitrite (NEG) Ur Leukocyte Esterase (NEG) Urine RBC (0) /HPF Urine WBC (0-4) /HPF Ur Squamous Epith Cells /LPF Urine Bacteria /LPF Coronavirus (PCR) (Negative) Influenza Type A (PCR) (Negative) Influenza Type B (PCR) (Negative) RSV RNA Qual (PCR) (Negative) 02/11/21 02/11/21 02/11/21 Range/Units 12:05 12:05 12:05 WBC (4.8-10.8) X10*3/uL RBC (4.60-5.80) X10*6/uL Hgb (14.0-18.0) g/dl Hct (42-52) % MCV (80-98) fL MCH (27.0-33.0) pg MCHC (31.0-36.0) g/dl RDW (11.0-16.0) % Plt Count (160-400) X10*3/uL MPV (9.4-12.4) fL Immature Gran % (Auto) (0.0-0.4) % Neut % (Auto) (45-73) % Lymph % (Auto) (20-40) % Dickey % (Auto) (2-11) % Eos % (Auto) (0-4) % Baso % (Auto) (0-2) % Lymph # (Auto) (1.2-4.9) X10*3/uL Dickey # (Auto) (0.1-1.2) X10*3/uL Eos # (Auto) (0.0-0.4) X10*3/uL Baso # (Auto) (0.0-0.2) X10*3/uL Abs Immat Gran (auto) (0.00-0.03) X10*3/uL Absolute Neuts (auto) (2.0-8.3) X10*3/uL Absolute Nucleated RBC (0.0-0.012) X10*3/uL Nucleated RBC % (auto) (0.0-0.2) /100WBC PT (9.9-13.0) SEC INR (0.9-1.1) APTT (24.1-38.0) SEC D-Dimer NG/ML Sodium 137 (135-145) mmol/L Potassium 4.6 (3.3-5.1) mmol/L Chloride 102 (96-108) mmol/L Carbon Dioxide 27 (22-29) mmol/L Anion Gap 13 (12-20) BUN 8 L (9-16) mg/dL Creatinine 0.90 (0.5-1.4) mg/dL Estim Creat Clear Calc 125.1 Estimated GFR > 60 Random Glucose 126 H (60-115) mg/dL Calcium 9.4 (8.4-10.2) mg/dL Magnesium (1.6-2.6) mg/dL Total Bilirubin 0.5 (0.0-1.0) mg/dL AST 16 D (5-37) U/L ALT 18 (0-40) U/L Alkaline Phosphatase 118 H (39-117) U/L Troponin I High Sens 3.6 (<3.5-35.0) ng/L B-Natriuretic Peptide < 10 (<100) pg/mL Total Protein 7.8 (6.5-8.0) g/dL Albumin 4.0 (3.5-5.0) g/dL Urine Color Urine Appearance Urine pH (5.0-8.0) Ur Specific Wilmot (1.005-1.025) Urine Protein (NEG-TRACE) MG/DL Urine Glucose (UA) (NEG) MG/DL Urine Ketones (NEG) MG/DL Urine Blood (NEG) Urine Nitrite (NEG) Ur Leukocyte Esterase (NEG) Urine RBC (0) /HPF Urine WBC (0-4) /HPF Ur Squamous Epith Cells /LPF Urine Bacteria /LPF Coronavirus (PCR) (Negative) Influenza Type A (PCR) (Negative) Influenza Type B (PCR) (Negative) RSV RNA Qual (PCR) (Negative) 02/11/21 02/11/21 02/11/21 Range/Units 12:42 12:42 15:28 WBC (4.8-10.8) X10*3/uL RBC (4.60-5.80) X10*6/uL Hgb (14.0-18.0) g/dl Hct (42-52) % MCV (80-98) fL MCH (27.0-33.0) pg MCHC (31.0-36.0) g/dl RDW (11.0-16.0) % Plt Count (160-400) X10*3/uL MPV (9.4-12.4) fL Immature Gran % (Auto) (0.0-0.4) % Neut % (Auto) (45-73) % Lymph % (Auto) (20-40) % Dickey % (Auto) (2-11) % Eos % (Auto) (0-4) % Baso % (Auto) (0-2) % Lymph # (Auto) (1.2-4.9) X10*3/uL Dickey # (Auto) (0.1-1.2) X10*3/uL Eos # (Auto) (0.0-0.4) X10*3/uL Baso # (Auto) (0.0-0.2) X10*3/uL Abs Immat Gran (auto) (0.00-0.03) X10*3/uL Absolute Neuts (auto) (2.0-8.3) X10*3/uL Absolute Nucleated RBC (0.0-0.012) X10*3/uL Nucleated RBC % (auto) (0.0-0.2) /100WBC PT (9.9-13.0) SEC INR (0.9-1.1) APTT (24.1-38.0) SEC D-Dimer NG/ML Sodium (135-145) mmol/L Potassium (3.3-5.1) mmol/L Chloride (96-108) mmol/L Carbon Dioxide (22-29) mmol/L Anion Gap (12-20) BUN (9-16) mg/dL Creatinine (0.5-1.4) mg/dL Estim Creat Clear Calc Estimated GFR Random Glucose (60-115) mg/dL Calcium (8.4-10.2) mg/dL Magnesium (1.6-2.6) mg/dL Total Bilirubin (0.0-1.0) mg/dL AST (5-37) U/L ALT (0-40) U/L Alkaline Phosphatase (39-117) U/L Troponin I High Sens 3.8 (<3.5-35.0) ng/L B-Natriuretic Peptide (<100) pg/mL Total Protein (6.5-8.0) g/dL Albumin (3.5-5.0) g/dL Urine Color YELLOW Urine Appearance CLEAR Urine pH 6.0 (5.0-8.0) Ur Specific Wilmot 1.025 (1.005-1.025) Urine Protein TRACE (NEG-TRACE) MG/DL Urine Glucose (UA) NEG (NEG) MG/DL Urine Ketones NEG (NEG) MG/DL Urine Blood TRACE (NEG) Urine Nitrite NEG (NEG) Ur Leukocyte Esterase NEG (NEG) Urine RBC 1-4 (0) /HPF Urine WBC 0-2 (0-4) /HPF Ur Squamous Epith Cells NONE /LPF Urine Bacteria NONE /LPF Coronavirus (PCR) NEGATIVE (Negative) Influenza Type A (PCR) NEGATIVE (Negative) Influenza Type B (PCR) NEGATIVE (Negative) RSV RNA Qual (PCR) NEGATIVE (Negative) Imaging Data Chest x-ray: Attestation: I personally reviewed and interpreted this imaging study as follows: Radiologist's impression: Bilateral lower lobe disease which may be related to atelectasis or pneumonitis. CTA of chest for PE: Attestation: I personally reviewed and interpreted this imaging study as follows: Radiologist's impression: FINDINGS: QUALITY OF STUDY/CONTRAST BOLUS: Satisfactory. PULMONARY ARTERIES: There are linear filling defects present in the left and right main pulmonary arteries, large clot burden at distal right main pulmonary artery and right lower lobe pulmonary artery. There is filling defects in the segmental branches bilateral upper and lower lobes. Lower lobe evaluation is limited by patient respiratory motion artifact.? THORACIC AORTA: No thoracic aortic dissection or aneurysmal enlargement. LUNG: There are low lung volumes. Artifact is present from respiratory motion. Bilateral posterior basilar atelectasis and some airspace opacities are present.? There is some linear mucus stranding in the proximal left main bronchus. PLEURA: No pneumothorax. No pleural thickening. Question trace effusion on right. MEDIASTINUM: Heart is upper limits of normal size. No pericardial effusion. The pulmonary artery is slightly larger than the aorta consistent with pulmonary hypertension. There is mild septal bowing consistent with right heart strain. No pericardial effusion. No mediastinal mass or adenopathy. CHEST WALL/AXILLA: No axillary or internal mammary lymphadenopathy. OSSEOUS STRUCTURES: No acute bony abnormality. Probable small thoracic vertebral hemangiomas mid thoracic spine. No erosive changes. No paraspinal soft tissue swelling.? UPPER ABDOMEN: No reflux of contrast into the hepatic veins.? Upper abdomen unremarkable. Results called and discussed with ALEX Chao in the Emergency Department at [address]/CT angio chest PE protocol IMPRESSION: 1. Positive for pulmonary embolism including involvement left and right main pulmonary arteries. ? 2. Mild pulmonary hypertension and right heart strain. No pericardial effusion. ? 3. Low lung volumes. Motion artifact. Bibasilar atelectasis and posterior basilar opacities similar to recent chest x-ray. ? VTE: positive ECG Data ECG #1: Attestation: I personally reviewed and interpreted this ECG as follows: ECG interpretation date: 02/11/21 ECG interpretation time: 10:55 Interpretation: Normal sinus rhythm with a ventricular rate of 81 with a normal NH interval normal QRS duration normal QT/QTC interval. No acute ischemic change noted. Similar compared to prior EKG 04/26/2020. Critical Care Time Critical Care Time Critical Care Time: Yes Total Critical Care Time: 60 Attestation: I personally attest to this time spent taking care of the patient Discharge Plan Discharge Clinical Impression: Pulmonary embolism Patient Disposition: Admitted As Inpatient
[2021-02-11 12:49] LABS: Magnesium 2.3 mg/dL (1.6-2.6)
[2021-02-11 12:50] LABS: Alanine Aminotransferase 18 U/L (0-40); Alkaline Phosphatase 118 U/L (39-117); Anion Gap 13 (12-20); Aspartate Amino Transferase 16 U/L (5-37); Bilirubin Total 0.5 mg/dL (0.0-1.0); Blood Urea Nitrogen 8 mg/dL (9-16); Calcium 9.4 mg/dL (8.4-10.2); Carbon Dioxide 27 mmol/L (22-29); Chloride 102 mmol/L (96-108); Creatinine Clr Calc Pharmacy 125.1; D Dimer 2796 NG/ML; Estimated Glomerular Filt Rate > 60; Glucose Random 126 mg/dL (60-115); Potassium 4.6 mmol/L (3.3-5.1); Sodium 137 mmol/L (135-145); Total Protein 7.8 g/dL (6.5-8.0)
[2021-02-11 12:52] LABS: B Type Natriuretic Peptide < 10 pg/mL (<100)
[2021-02-11 12:55] LABS: Glucose Urine UA NEG (NEG); Leukocyte Esterase Urine NEG (NEG); Nitrite Urine NEG (NEG); Specific Gravity - Urine 1.025 (1.005-1.025); UACC Culture Trigger NO; Urine Blood TRACE (NEG); Urine Ketones NEG (NEG); Urine Protein TRACE MG/DL (NEG-TRACE)
[2021-02-11 12:58] LABS: Appearance Urine CLEAR; Color Urine YELLOW
[2021-02-11 12:59] LABS: Troponin-I High Sensitivity 3.6 ng/L (<3.5-35.0)
[2021-02-11 13:11] LABS: WBC Urine 0-2 /HPF (0-4)
[2021-02-11 13:48] LABS: Influenza A PCR NEGATIVE (Negative); Influenza B PCR NEGATIVE (Negative); Resp Syncy Virus RNA Qual PCR NEGATIVE (Negative); SARS COV2 PCR INHOUSE NEGATIVE (Negative)
[2021-02-11] MEDS: LORazepam 2 MG/ML VIAL 1 MG IVPUSH ×2 (15:53→17:32)
[2021-02-11] MEDS: HYDROmorphone HCl 1 MG/ML SYRINGE IVPUSH ×3 (15:53→17:32)
[2021-02-11 16:07] LABS: Troponin-I High Sensitivity 3.8 ng/L (<3.5-35.0)
[2021-02-11] MEDS: iohexoL 350 MG/ML 100 ML INFUS..BTL IV (16:15)
[2021-02-11] MEDS: Heparin Sodium,Porcine 5,000 UNIT/ML VIAL 4100 UNIT IVPUSH (17:31)
[2021-02-11] MEDS: Heparin Sodium,Porcine/1/2NS 25,000 UNIT/250 ML IV.SOLN 14.42 UNIT IVCONT (17:58)
--- NOTE | 2021-02-11 18:16 | PM.IMHP ---
History of Present Illness Date of Service: 02/11/21 Chief Complaint: chest pain 45M presented with 2 days of chest pain and sob. pain in midsternal radiating to right and back. worse with dep inspiratoin. associated with sob, orthopnea. denies fever, chills. reports hemoptysis. denies recent imobilization, had surgery about 6 months ptp. actively using IV heroin. in ED found to have PE involving left and right main pulmnoary artery, mild pulm htn and right heart strain. Review of Systems Review of Systems: Constitutional: Denies fever, denies Chills Eyes: denies blurry vision ENT: denies sore throat CVS: chest pain Respiratory: dyspnea GI: no abdominal pain : denies dysuria MSK: denies neck pain Skin: denies rash Neuro: denies specific motor weakness Psych: denies suicidal ideation Endocrine: denies heat/cold intolerance Hematologic: denies easy bleeding Allergy: denies hives [facility] Medical History Hypertension Family history: reviewed and not pertinent Social History Alcohol intake: never Advance Directives: No Advance Directives Information Provided: Yes Meds Allergies Allergy/AdvReac Type Severity Reaction Status Date / Time No Known Allergies Allergy Verified 02/11/21 08:35 N.K.D.A. Allergy Unknown Unknown Uncoded 05/04/20 13:31 Active Medications: Current Medications Generic Name Dose Route Start Last Admin Trade Name Freq PRN Reason Stop Dose Admin Heparin Sodium/Sodium Chloride 25,000 unit in 250 mls @ 0 mls/hr 02/11/21 17:15 02/11/21 17:58 IVCONT 14 units/kg/hr .Q0M BRITTANY 14.42 mls/hr Administration Protocol Per Protocol Pharmacy Consult 1 each 02/11/21 18:05 Consult Rx Perform Med Rec MISCELLANE ONCE PRN Consult order Sodium Chloride 3 ml 02/12/21 00:00 0.9 % Sodium Chloride Flush 3 Ml Syringe IVFLUSH QSHIFT BRITTANY Physical Exam Vital Signs and Narrative: Vital Signs: Last Vital Signs Temp 99.2 F 02/11/21 14:00 Pulse 92 02/11/21 17:39 Resp 25 H 02/11/21 17:39 BP 127/87 02/11/21 17:39 Pulse Ox 97 02/11/21 17:39 Body Mass Index 33.5 General: sob, diaphoretic HEENT: atraumatic Neck: normal to visual inspection CVS: S1, S2, RRR Resp: CTA bilateral Chest: non tender GI: soft, non tender, non distended : no CVA tenderness Skin: no rashes Extremities: no edema Neuro: Oriented X3, grossly intact Psych: cooperative Results Labs CBC and Chem 7: 02/11/21 12:05 02/11/21 12:05 Labs: Laboratory Results - last 24 hr 02/11/21 02/11/21 02/11/21 12:05 12:05 12:05 MCV 84.4 MCH 27.5 MCHC 32.6 RDW 13.0 Plt Count 187 MPV 9.9 Immature Gran % (Auto) 0.5 H Neut % (Auto) 71.9 Lymph % (Auto) 16.6 L Bill[place] % (Auto) 9.7 Eos % (Auto) 0.9 Baso % (Auto) 0.4 Lymph # (Auto) 1.7 Bill[place] # (Auto) 1.0 Eos # (Auto) 0.1 Baso # (Auto) 0.0 Abs Immat Gran (auto) 0.05 H Absolute Neuts (auto) 7.4 Absolute Nucleated RBC 0.000 Nucleated RBC % (auto) 0.0 PT 12.8 INR 1.1 APTT 38.1 H D-Dimer 2796 Anion Gap Estim Creat Clear Calc Estimated GFR Random Glucose Calcium Magnesium 2.3 Total Bilirubin AST ALT Alkaline Phosphatase Troponin I High Sens B-Natriuretic Peptide Total Protein Albumin Urine Color Urine Appearance Urine pH Ur Specific Henry Urine Protein Urine Glucose (UA) Urine Ketones Urine Blood Urine Nitrite Ur Leukocyte Esterase Urine RBC Urine WBC Ur Squamous Epith Cells Urine Bacteria Coronavirus (PCR) Influenza Type A (PCR) Influenza Type B (PCR) RSV RNA Qual (PCR) 02/11/21 02/11/21 02/11/21 12:05 12:05 12:05 MCV MCH MCHC RDW Plt Count MPV Immature Gran % (Auto) Neut % (Auto) Lymph % (Auto) [place] % (Auto) Eos % (Auto) Baso % (Auto) Lymph # (Auto) [place] # (Auto) Eos # (Auto) Baso # (Auto) Abs Immat Gran (auto) Absolute Neuts (auto) Absolute Nucleated RBC Nucleated RBC % (auto) PT INR APTT D-Dimer Anion Gap 13 Estim Creat Clear Calc 125.1 Estimated GFR > 60 Random Glucose 126 H Calcium 9.4 Magnesium Total Bilirubin 0.5 AST 16 D ALT 18 Alkaline Phosphatase 118 H Troponin I High Sens 3.6 B-Natriuretic Peptide < 10 Total Protein 7.8 Albumin 4.0 Urine Color Urine Appearance Urine pH Ur Specific Henry Urine Protein Urine Glucose (UA) Urine Ketones Urine Blood Urine Nitrite Ur Leukocyte Esterase Urine RBC Urine WBC Ur Squamous Epith Cells Urine Bacteria Coronavirus (PCR) Influenza Type A (PCR) Influenza Type B (PCR) RSV RNA Qual (PCR) 02/11/21 02/11/21 02/11/21 12:42 12:42 15:28 MCV MCH MCHC RDW Plt Count MPV Immature Gran % (Auto) Neut % (Auto) Lymph % (Auto) [place] % (Auto) Eos % (Auto) Baso % (Auto) Lymph # (Auto) [place] # (Auto) Eos # (Auto) Baso # (Auto) Abs Immat Gran (auto) Absolute Neuts (auto) Absolute Nucleated RBC Nucleated RBC % (auto) PT INR APTT D-Dimer Anion Gap Estim Creat Clear Calc Estimated GFR Random Glucose Calcium Magnesium Total Bilirubin AST ALT Alkaline Phosphatase Troponin I High Sens 3.8 B-Natriuretic Peptide Total Protein Albumin Urine Color YELLOW Urine Appearance CLEAR Urine pH 6.0 Ur Specific Henry 1.025 Urine Protein TRACE Urine Glucose (UA) NEG Urine Ketones NEG Urine Blood TRACE Urine Nitrite NEG Ur Leukocyte Esterase NEG Urine RBC 1-4 Urine WBC 0-2 Ur Squamous Epith Cells NONE Urine Bacteria NONE Coronavirus (PCR) NEGATIVE Influenza Type A (PCR) NEGATIVE Influenza Type B (PCR) NEGATIVE RSV RNA Qual (PCR) NEGATIVE Imaging Radiologist's Impressions: Impressions Chest X-Ray 02/11/21 08:45 IMPRESSION: Bilateral lower lobe disease which may be related to atelectasis or pneumonitis. Chest CTA 02/11/21 10:56 IMPRESSION: 1. Positive for pulmonary embolism including involvement left and right main pulmonary arteries. 2. Mild pulmonary hypertension and right heart strain. No pericardial effusion. 3. Low lung volumes. Motion artifact. Bibasilar atelectasis and posterior basilar opacities similar to recent chest x-ray. VTE: positive Assessment and Plan (1) Pulmonary embolism: Status: Acute 45M presented with chest pain and sob, found to be hypoxic and have bilateral PE acute hypoxic respiraotry failure due to bilateral main pulmonary artery PE with right heart strain IV heparin wean o2 as tolerated check echo close monitoring - high risk no indication for TPA at this time opioid dependence restart methadone once confirmed Quality Stroke Does the patient have a stroke diagnosis?: No VTE Prior VTE?: No VTE Risk Level:: Medical - moderate - high VTE Device Contraindication: Treatment Not Indicated VTE Drug Contraindication: N/A - Med Ordered
--- NOTE | 2021-02-11 20:49 | PC.NURSE ---
Patient having increasing shortness of breath, unable to finish his sentences, temperature up and patient generally looks worse than when he came in. Dr. Asher notified and he assessed the patient. Prescribed atropine and morphine for patient.
--- NOTE | 2021-02-11 20:52 | PM.EVENT ---
Event Note Date of Service: 02/12/21 Event Note: Pulmonary embolism/hypoxia: Patient had mild right heart strain on the CT scan. Troponins negative. Blood pressure currently stable. Patient is currently tachycardic and tachypneic. Patient is visibly short of breath. Spoke to the ICU Dr Guillen for eval/ further inputs-> suggested transfer to tertiary center for catheter directed tPA infusion Spoke to [facility] ICU Dr Carter; denies Transfer; Pt is transferred to ICU under Dr Guillen care at [facility].
[2021-02-11] MEDS: Morphine Sulfate 2 MG/ML CARTRIDGE 1 MG IVPUSH (20:58)
--- NOTE | 2021-02-11 21:19 | PHA.MEDREC ---
Pharmacy Consult ? Medication Reconciliation Pharmacy has completed the medication reconciliation.
[2021-02-11 21:22] LABS: Lactic Acid 1.3 mmol/L (0.5-2.0)
--- NOTE | 2021-02-11 22:26 | P.CONCC_ITS ---
History of Present Illness Data of Consult Service Date: 02/11/21 Requesting physician: Gonzalez Asher Primary Care Provider: Cynthia Lucero MD HPI Reason for consult: Respiratory distress This is a 44-year-old male with a past medical history of hypertension? and substance abuse? who presented with shortness of breath? to the emergency room earlier today, and? found to have a pulmonary embolism involving left and right main pulmonary artery, mild pulm htn and right heart strain. He was admitted into hospital medicine and started on heparin drip.? Tonight, patient? became tachypneic and tachycardic? with worsening shortness of breath.? ??When assessed? patient he is in significant respiratory distress, but maintaining oxygenation? on 2 L via nasal cannula.? He was noted to be tachypneic to 30 and? tachycardic to the 120s.?? ?Patient will be admitted into the ICU for management of PE, possibly requiring tPA administration Review of Systems Review of Systems: Constitutional: No weight loss, fever, chills, weakness or fatigue. Eyes: No visual loss, blurred vision, double vision or yellow sclera ENT: No hearing loss, sneezing, congestion, runny nose or sore throat. Respiratory: (+)Dyspnea, Productive cough with white and yellow sputum. No hemoptysis. Cardiovascular: No chest pain. No palpitations. No edema. Gastrointestinal: No anorexia, nausea, vomiting or diarrhea. No abdominal pain or blood in stool. Genitourinary: No burning micturition. No urinary frequency or incontinence. Neurologic: No headache, dizziness, syncope, unilateral weakness, ataxia, numbness or tingling in the extremities. No change in bowel or bladder control. Musculoskeletal: No muscle pain, back pain, joint pain or stiffness. Hematologic/Lymphatics: No bleeding or bruising. No painful lymph nodes. Skin: No rash or itching. Endocrine: No reports of sweating. No cold or heat intolerance. No polyuria or polydipsia. Psychiatric: admits to using heroin x 2 days ago PMFSH Past Medical History Medical History Hypertension Family History Family history: reviewed and not pertinent Social History Social History Alcohol intake: unknown Patient Tobacco Use Status: Tobacco use Unknown Use of substances other than those prescribed or required for medical reasons: Unknown Advance Directives: No Advance Directives Information Provided: Yes service: No Current occupational status: employed Meds Allergies Allergy/AdvReac Type Severity Reaction Status Date / Time No Known Allergies Allergy Verified 02/11/21 08:35 N.K.D.A. Allergy Unknown Unknown Uncoded 05/04/20 13:31 Active Medications: Current Medications Generic Name Dose Route Start Last Admin Trade Name Freq PRN Reason Stop Dose Admin Heparin Sodium/Sodium Chloride 25,000 unit in 250 mls @ 0 mls/hr 02/11/21 17:15 02/11/21 17:58 IVCONT 14 units/kg/hr .Q0M BRITTANY 14.42 mls/hr Administration Protocol Per Protocol Pharmacy Consult 1 each 02/11/21 18:05 Consult Rx Perform Med Rec MISCELLANE ONCE PRN Consult order Sodium Chloride 3 ml 02/12/21 00:00 0.9 % Sodium Chloride Flush 3 Ml Syringe [facility] Home Medications Medication Instructions Recorded Confirmed Last Taken Type methadone 10 mg/mL oral concentrate 85 mg PO DAILY 02/11/21 02/11/21 02/11/21 History Physical Exam Vital Signs: Vital Signs: Last Vital Signs Temp 100 F 02/11/21 20:37 Pulse 126 H 02/11/21 22:00 Resp 29 H 02/11/21 22:00 BP 146/93 H 02/11/21 20:37 Pulse Ox 96 02/11/21 22:00 Body Mass Index 33.5 Constitutional: Alert, in significant amount of distress. Mental Status: Oriented to person, place and time. Head: Normocephalic. Eyes: Pupils are equal, round and reactive to light. Extraocular muscles intact. Ear, Nose and Throat: Oropharynx clear, mucous membranes moist. Ears and nose without masses, lesions or deformities. Trachea midline. Neck: Supple, Full range of motion. Respiratory: Lungs diffusely diminished. Tachypneic. Cardiovascular: Tachycardic. S1 S2 regular. No murmurs, rubs or gallops. Gastrointestinal: Abdomen soft, non-tender, non-distended. Normal bowel sounds. No pulsatile mass. No hepatosplenomegaly. Acute care time Genitourinary: No costovertebral angle tenderness. Neurologic: Cranial nerves II-XII grossly intact. No focal neurological deficits. Moves all extremities spontaneously. Sensation intact bilaterally. Skin: No rashes or lesions. No petechiae or purpura. 1er extremity.? Trace pitting edema of right lower extremity. Musculoskeletal: No cyanosis or clubbing. No gross deformities. Normal range of motion. Heme/Lymphatics/Immun: Palpation of neck reveals no swelling or tenderness of neck nodes. Psychiatric: Normal mood and affect Results Labs CBC & Chem 7: 02/11/21 12:05 02/11/21 12:05 Labs: Short CBC 02/11/21 Range/Units 12:05 WBC 10.3 (4.8-10.8) X10*3/uL Hgb 13.9 L (14.0-18.0) g/dl Hct 42.7 (42-52) % Plt Count 187 (160-400) X10*3/uL BMP 02/11/21 12:05 Sodium 137 Potassium 4.6 Chloride 102 Carbon Dioxide 27 BUN 8 L Creatinine 0.90 Calcium 9.4 Liver Function 02/11/21 Range/Units 12:05 Total Bilirubin 0.5 (0.0-1.0) mg/dL AST 16 D (5-37) U/L ALT 18 (0-40) U/L Alkaline Phosphatase 118 H (39-117) U/L Albumin 4.0 (3.5-5.0) g/dL Urine 02/11/21 Range/Units 12:42 Urine Color YELLOW Urine Appearance CLEAR Urine pH 6.0 (5.0-8.0) Ur Specific [place] 1.025 (1.005-1.025) Urine Protein TRACE (NEG-TRACE) MG/DL Urine Glucose (UA) NEG (NEG) MG/DL Assessment and Plan (1) Pulmonary embolism: Status: Acute 45-year-old male with a pulmonary embolism involving left and right main pulmonary artery who was started on heparin earlier, but now may require tPA administration Plan Will repeat troponin and BNP Depending on results from troponin and BMP will administer tPA Critical care time: x 60 min of critical care time (2) Hypertension: Status: Acute
--- NOTE | 2021-02-11 22:35 | MHC.CM.PN ---
CM met with admitted pt, bed assignment pending. Dyspnea, speaking in short sentences. Pt unable to participate much in interview secondary to respiratory status. Please address HCP when pt condition improves. Pt declines at this time. Pt is employed. Lives with his and uses a cane. Has no services. Pt is on methadone 85 mg daily. Will need recovery support when condition warrants. Iqra Arora () [phone]. D/C plan is home without services. to provide transportation home. CM to follow for d/c needs.
[2021-02-12] VITALS (14 sets, daily range): BP systolic 117–144; BP diastolic 67–93; PULSE 73–96; RESP 16–24; TEMP 36.4–37.7; O2SAT 92–98; BMI 34.2
[2021-02-12 00:37] LABS: B Type Natriuretic Peptide < 10 pg/mL (<100); Troponin-I High Sensitivity 4.8 ng/L (<3.5-35.0)
[2021-02-12 01:10] LABS: PTT Heparin Drip 72.2 SEC (53-77.9)
[2021-02-12] MEDS: Acetaminophen 325 MG TABLET 650 MG PO ×3 (02:49→20:13)
--- NOTE | 2021-02-12 04:03 | PC.NURSE ---
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
[2021-02-12 06:17] LABS: VBG Base Excess 2.9 mmol/L; VBG HCO3 27 mmol/L (22-26); VBG pCO2 41 mmHg; VBG pH 7.42 (7.32-7.43); VBG pO2 41 mmHg
[2021-02-12 06:20] LABS: Hemoglobin 12.5 g/dl (14.0-18.0); Mean Corpuscular HGB Conc 32.9 g/dl (31.0-36.0); Mean Corpuscular Hemoglobin 27.8 pg (27.0-33.0); Mean Corpuscular Volume 84.4 fL (80-98); Mean Platelet Volume 9.8 fL (9.4-12.4); Platelet Count 189 X10*3/uL (160-400); Red Cell Distribution Width 13.2 % (11.0-16.0); White Blood Count 11.5 X10*3/uL (4.8-10.8)
[2021-02-12 06:32] LABS: PTT Heparin Drip 84.3 SEC (53-77.9)
[2021-02-12 06:52] LABS: Albumin Level 3.7 g/dL (3.5-5.0); Anion Gap 15 (12-20); Blood Urea Nitrogen 9 mg/dL (9-16); Calcium 9.1 mg/dL (8.4-10.2); Carbon Dioxide 25 mmol/L (22-29); Chloride 99 mmol/L (96-108); Creatinine Clr Calc Pharmacy 114.9; Estimated Glomerular Filt Rate > 60; Glucose Fasting 114 mg/dL (60-99); Magnesium 2.1 mg/dL (1.6-2.6); Phosphorus 3.5 mg/dL (2.7-4.5); Potassium 4.1 mmol/L (3.3-5.1); Sodium 135 mmol/L (135-145)
[2021-02-12 06:53] LABS: B Type Natriuretic Peptide < 10 pg/mL (<100)
[2021-02-12 07:15] LABS: Venous Blood Gas Refer to POC result
--- NOTE | 2021-02-12 07:30 | CA_ITS ---
Transthoracic Echocardiogram Patient (Last, First, Middle): Grey Alexander L Gender: Male Date of : 1975 Age: 45 Procedure Date: 02/12/2021 Procedure Type: Transthoracic Echocardiogram Location: ICU Height: 175.26 cm Weight: 104.78 kg BSA: 2.20 m2 Heart Rate: bpm BP: 121 / 87 mmHg Cooking Instructor: Referring MD: Tung Simons MD Symptoms: PULMONARY EMBOLISM Study Quality: Good ECG Rhythm: Sinus Conclusions: - Normal left ventricular size and systolic function. - Mildly increased right ventricular cavity size. There is borderline right ventricular systolic function. - Small calcified mass attached to the atrial side of the anterior mitral valve leaflet. This can be represent a healed vegetation. Please repeat blood cultures. Findings Left Ventricle Normal left ventricular size and systolic function. There is mildly increased left ventricular wall thickness. The visually estimated ejection fraction is between 55-60%. There is no evidence of regional wall motion abnormalities. Diastolic function is normal for age. Right Ventricle Mildly increased right ventricular cavity size. There is borderline right ventricular systolic function. Atria Both atria are normal in size. Aortic Valve Normal aortic valve structure and function. There is no aortic valve stenosis. There is no aortic valve regurgitation. Mitral Valve There is no mitral valve regurgitation. There is no mitral valve stenosis. Small calcified mass attached to the atrial side of the anterior mitral valve leaflet. Pulmonic Valve Normal pulmonic valve structure and function. Tricuspid Valve Normal tricuspid valve structure and function. There is trace tricuspid valve regurgitation. Tricuspid regurgitation envelope is inadequate for calculation of right ventricular systolic pressure. Indeterminate right atrial pressure. Great Vessels All visible segments of the aorta are normal in size. The visualized portions of the pulmonary artery and branches are normal. Venous The inferior vena cava was not well visualized. Pericardium/Pleural There is no evidence of pericardial effusion. Prior Study Comparison Changes noted compared to prior study dated: 01/24/2018. Mildly dilated RV with borderline RV function. Small calcified mass attached to the anterior mitral valve leaflet. Measurements 2D Linear Measurements IVSd: 1.21 0.6-0.9/0.6-1.0 cm LVIDd: 4.40 3.9-5.3/4.2-5.9 cm LVIDd Index: 2.00 2.4-3.2/2.2-3.1 cm/m2 LVIDs: 2.46 2.0-3.6 cm LVPWd: 1.21 0.7-1.1 cm Ao Root: 3.10 2.1-3.5 cm LA Diam: 3.40 2.7-3.8/3.0-4.0 cm LAIDs Index: 1.55 1.5-2.3 cm/m2 LV Mass: 241.31 67-162/88-224 g LV Mass Index: 109.69 43-95/49-115 g/m2 LVOT Diam: 2.30 3.0+(-)1.3 cm Mitral Valve MV Pk E: 0.90 MV PK A: 0.72 MV Decel Time: 188.00 E/A: 1.30 E'Lateral: 15.10 E'Medial: 6.31 E/E' Med: 14.30 E/E' Lat: 6.00 PHT: 55.00 MVA PHT: 4.00 Decel [place]: 4.80 Aortic Valve AoV Pk Elmer: 1.36 AoV Mn Elmer: 0.85 AoV VTI: 0.26 AoV Pk Grad: 7.00 Aov Mn Grad: 4.00 [place] Cont.VTI: 3.30 LVOT LVOT Pk Elmer: 0.96 LVOT Mn Elmer: 0.58 LVOT VTI: 0.21 LVOT Pk Grad: 4.00 LVOT Mn Grad: 2.00 LVOT Diam: 2.30 LVOT Area: 4.15 Diastolic Function MV Pk E: 0.90 MV Pk A: 0.72 E/A: 1.30 E'Medial: 6.31 E/E' Med: 14.30 E' Laterial: 15.10 E/E' Lat: 6.00 Tricuspid Valve TR Pk Elmer: 1.77 TR Pk Grad: 13.00 RA Press: 3.00 Great Vessels Aorta Ao Root-2D: 3.10 2.0-3.7 cm Ao Asc: 2.70 2.1-3.4 cm Pulmonary Valve PV Pk Elmer: 1.48 Peak PV Grad: 9.00 Updated in Other Vendor System with Status of Final Jaun Jacobson MD electronically signed on 02/12/2021 8:40:46 PM with status of Final
[2021-02-12] MEDS: HYDROmorphone HCl 1 MG/ML SYRINGE IVPUSH (09:03)
[2021-02-12] MEDS: Heparin Sodium,Porcine/1/2NS 25,000 UNIT/250 ML IV.SOLN 12.36 UNIT IVCONT (09:53)
--- NOTE | 2021-02-12 10:47 | P.PNCC_ITS ---
Subjective Subjective Date of Service: 02/12/21 Interval History: 45-year-old gentleman with underlying history of substance abuse admitted on 02/11/2021 with several day history of dyspnea and chest discomfort. On ER evaluation patient was noted to bilateral emboli, he has been started on anticoagulation and initially admitted to general medical [facility]. His CT angiogram chest demonstrated right ventricular strain, though his troponin and BNP remained flat. Over the course of his 1st day after admission he developed worsening tachypnea and tachycardia and has been transferred to int ensive care unit for close monitoring. Overnight his tachypnea, tachycardia, and oxygen requirements improved. His troponin and BNP remained flat. Critical Care Time (minutes): 0 Physical Exam Vital Signs: Vital Signs: Last Vital Signs Temp 99.1 F 02/12/21 09:00 Pulse 87 02/12/21 09:00 Resp 24 H 02/12/21 09:00 BP 121/87 02/12/21 09:00 Pulse Ox 92 02/12/21 09:00 Body Mass Index 34.2 Const: General: no acute distress, alert and awake Eyes: Sclerae: sclerae normal EOM: EOMs intact bilaterally Neck: Neck: Yes no lymphadenopathy, Yes trachea midline and Yes supple Resp: Effort & Inspection: normal respiratory effort and no respiratory distress Auscultation: clear to auscultation bilaterally Cardio: Rate: regular rate Rhythm: regular rhythm Heart sounds: no gallops, no murmurs and no rubs GI: Palpation (GI): Soft to palpation and Other GI palpation findings present ( Nontender) Auscultation: normal bowel sounds Extrem: General: Yes no pedal edema, No clubbing and No cyanosis Objective Data Labs CBC & Chem 7: 02/12/21 06:12 02/12/21 06:12 Labs: Laboratory Results - last 24 hr 02/11/21 02/11/21 02/11/21 12:05 12:05 12:05 WBC 10.3 RBC 5.06 Hgb 13.9 L Hct 42.7 MCV 84.4 MCH 27.5 MCHC 32.6 RDW 13.0 Plt Count 187 MPV 9.9 Immature Gran % (Auto) 0.5 H Neut % (Auto) 71.9 Lymph % (Auto) 16.6 L [place] % (Auto) 9.7 Eos % (Auto) 0.9 Baso % (Auto) 0.4 Lymph # (Auto) 1.7 [place] # (Auto) 1.0 Eos # (Auto) 0.1 Baso # (Auto) 0.0 Abs Immat Gran (auto) 0.05 H Absolute Neuts (auto) 7.4 Absolute Nucleated RBC 0.000 Nucleated RBC % (auto) 0.0 PT 12.8 INR 1.1 APTT 38.1 H PTT (Heparin Protocol) D-Dimer 2796 VBG pH VBG pCO2 VBG pO2 VBG HCO3 VBG O2 Saturation VBG Base Excess Sodium Potassium Chloride Carbon Dioxide Anion Gap BUN Creatinine Estim Creat Clear Calc Estimated GFR Random Glucose Fasting Glucose Lactic Acid Calcium Phosphorus Magnesium 2.3 Total Bilirubin AST ALT Alkaline Phosphatase Troponin I High Sens B-Natriuretic Peptide Total Protein Albumin Urine Color Urine Appearance Urine pH Ur Specific Equality Urine Protein Urine Glucose (UA) Urine Ketones Urine Blood Urine Nitrite Ur Leukocyte Esterase Urine RBC Urine WBC Ur Squamous Epith Cells Urine Bacteria Coronavirus (PCR) Influenza Type A (PCR) Influenza Type B (PCR) RSV RNA Qual (PCR) 02/11/21 02/11/21 02/11/21 12:05 12:05 12:05 WBC RBC Hgb Hct MCV MCH MCHC RDW Plt Count MPV Immature Gran % (Auto) Neut % (Auto) Lymph % (Auto) [place] % (Auto) Eos % (Auto) Baso % (Auto) Lymph # (Auto) [place] # (Auto) Eos # (Auto) Baso # (Auto) Abs Immat Gran (auto) Absolute Neuts (auto) Absolute Nucleated RBC Nucleated RBC % (auto) PT INR APTT PTT (Heparin Protocol) D-Dimer VBG pH VBG pCO2 VBG pO2 VBG HCO3 VBG O2 Saturation VBG Base Excess Sodium 137 Potassium 4.6 Chloride 102 Carbon Dioxide 27 Anion Gap 13 BUN 8 L Creatinine 0.90 Estim Creat Clear Calc 125.1 Estimated GFR > 60 Random Glucose 126 H Fasting Glucose Lactic Acid Calcium 9.4 Phosphorus Magnesium Total Bilirubin 0.5 AST 16 D ALT 18 Alkaline Phosphatase 118 H Troponin I High Sens 3.6 B-Natriuretic Peptide < 10 Total Protein 7.8 Albumin 4.0 Urine Color Urine Appearance Urine pH Ur Specific Equality Urine Protein Urine Glucose (UA) Urine Ketones Urine Blood Urine Nitrite Ur Leukocyte Esterase Urine RBC Urine WBC Ur Squamous Epith Cells Urine Bacteria Coronavirus (PCR) Influenza Type A (PCR) Influenza Type B (PCR) RSV RNA Qual (PCR) 02/11/21 02/11/21 02/11/21 12:42 12:42 15:28 WBC RBC Hgb Hct MCV MCH MCHC RDW Plt Count MPV Immature Gran % (Auto) Neut % (Auto) Lymph % (Auto) [place] % (Auto) Eos % (Auto) Baso % (Auto) Lymph # (Auto) [place] # (Auto) Eos # (Auto) Baso # (Auto) Abs Immat Gran (auto) Absolute Neuts (auto) Absolute Nucleated RBC Nucleated RBC % (auto) PT INR APTT PTT (Heparin Protocol) D-Dimer VBG pH VBG pCO2 VBG pO2 VBG HCO3 VBG O2 Saturation VBG Base Excess Sodium Potassium Chloride Carbon Dioxide Anion Gap BUN Creatinine Estim Creat Clear Calc Estimated GFR Random Glucose Fasting Glucose Lactic Acid Calcium Phosphorus Magnesium Total Bilirubin AST ALT Alkaline Phosphatase Troponin I High Sens 3.8 B-Natriuretic Peptide Total Protein Albumin Urine Color YELLOW Urine Appearance CLEAR Urine pH 6.0 Ur Specific Equality 1.025 Urine Protein TRACE Urine Glucose (UA) NEG Urine Ketones NEG Urine Blood TRACE Urine Nitrite NEG Ur Leukocyte Esterase NEG Urine RBC 1-4 Urine WBC 0-2 Ur Squamous Epith Cells NONE Urine Bacteria NONE Coronavirus (PCR) NEGATIVE Influenza Type A (PCR) NEGATIVE Influenza Type B (PCR) NEGATIVE RSV RNA Qual (PCR) NEGATIVE 02/11/21 02/11/21 02/12/21 20:51 23:49 00:52 WBC RBC Hgb Hct MCV MCH MCHC RDW Plt Count MPV Immature Gran % (Auto) Neut % (Auto) Lymph % (Auto) [place] % (Auto) Eos % (Auto) Baso % (Auto) Lymph # (Auto) [place] # (Auto) Eos # (Auto) Baso # (Auto) Abs Immat Gran (auto) Absolute Neuts (auto) Absolute Nucleated RBC Nucleated RBC % (auto) PT INR APTT PTT (Heparin Protocol) 72.2 D-Dimer VBG pH VBG pCO2 VBG pO2 VBG HCO3 VBG O2 Saturation VBG Base Excess Sodium Potassium Chloride Carbon Dioxide Anion Gap BUN Creatinine Estim Creat Clear Calc Estimated GFR Random Glucose Fasting Glucose Lactic Acid 1.3 Calcium Phosphorus Magnesium Total Bilirubin AST ALT Alkaline Phosphatase Troponin I High Sens 4.8 B-Natriuretic Peptide < 10 Total Protein Albumin Urine Color Urine Appearance Urine pH Ur Specific Equality Urine Protein Urine Glucose (UA) Urine Ketones Urine Blood Urine Nitrite Ur Leukocyte Esterase Urine RBC Urine WBC Ur Squamous Epith Cells Urine Bacteria Coronavirus (PCR) Influenza Type A (PCR) Influenza Type B (PCR) RSV RNA Qual (PCR) 02/12/21 02/12/21 02/12/21 06:09 06:12 06:12 WBC 11.5 H RBC 4.50 L Hgb 12.5 L Hct 38.0 L MCV 84.4 MCH 27.8 MCHC 32.9 RDW 13.2 Plt Count 189 MPV 9.8 Immature Gran % (Auto) Neut % (Auto) Lymph % (Auto) [place] % (Auto) Eos % (Auto) Baso % (Auto) Lymph # (Auto) [place] # (Auto) Eos # (Auto) Baso # (Auto) Abs Immat Gran (auto) Absolute Neuts (auto) Absolute Nucleated RBC 0.000 Nucleated RBC % (auto) 0.0 PT INR APTT PTT (Heparin Protocol) D-Dimer VBG pH 7.42 VBG pCO2 41 VBG pO2 41 VBG HCO3 27 H VBG O2 Saturation 70.0 VBG Base Excess 2.9 Sodium 135 Potassium 4.1 Chloride 99 Carbon Dioxide 25 Anion Gap 15 BUN 9 Creatinine 0.99 Estim Creat Clear Calc 114.9 Estimated GFR > 60 Random Glucose Fasting Glucose 114 H Lactic Acid Calcium 9.1 Phosphorus 3.5 Magnesium 2.1 Total Bilirubin AST ALT Alkaline Phosphatase Troponin I High Sens B-Natriuretic Peptide Total Protein Albumin 3.7 Urine Color Urine Appearance Urine pH Ur Specific Equality Urine Protein Urine Glucose (UA) Urine Ketones Urine Blood Urine Nitrite Ur Leukocyte Esterase Urine RBC Urine WBC Ur Squamous Epith Cells Urine Bacteria Coronavirus (PCR) Influenza Type A (PCR) Influenza Type B (PCR) RSV RNA Qual (PCR) 02/12/21 02/12/21 06:12 06:12 WBC RBC Hgb Hct MCV MCH MCHC RDW Plt Count MPV Immature Gran % (Auto) Neut % (Auto) Lymph % (Auto) [place] % (Auto) Eos % (Auto) Baso % (Auto) Lymph # (Auto) [place] # (Auto) Eos # (Auto) Baso # (Auto) Abs Immat Gran (auto) Absolute Neuts (auto) Absolute Nucleated RBC Nucleated RBC % (auto) PT INR APTT PTT (Heparin Protocol) 84.3 H D-Dimer VBG pH VBG pCO2 VBG pO2 VBG HCO3 VBG O2 Saturation VBG Base Excess Sodium Potassium Chloride Carbon Dioxide Anion Gap BUN Creatinine Estim Creat Clear Calc Estimated GFR Random Glucose Fasting Glucose Lactic Acid Calcium Phosphorus Magnesium Total Bilirubin AST ALT Alkaline Phosphatase Troponin I High Sens B-Natriuretic Peptide < 10 Total Protein Albumin Urine Color Urine Appearance Urine pH Ur Specific Equality Urine Protein Urine Glucose (UA) Urine Ketones Urine Blood Urine Nitrite Ur Leukocyte Esterase Urine RBC Urine WBC Ur Squamous Epith Cells Urine Bacteria Coronavirus (PCR) Influenza Type A (PCR) Influenza Type B (PCR) RSV RNA Qual (PCR) Quality Stroke Does the patient have a stroke diagnosis?: No VTE Prior VTE?: No VTE Risk Level:: Medical - moderate - high VTE Device Contraindication: Treatment Not Indicated VTE Drug Contraindication: N/A - Med Ordered Progress Note: A&P Assessment and plan (1) Pulmonary embolism: Status: Acute Assessment and Plan: Assessment: 45-year-old gentleman admitted with unprovoked pulmonary embolism, monitored in the intensive care unit overnight, now improving. Plan: Neuro: No acute issues. Cardiac: No acute issues. Underlying history of hypertension. Pulmonary: Unprovoked pulmonary emboli asthma with initial tachypnea common tachycardia, and mild hypoxemia, now improving. BNP and troponin remain flat. Renal: No acute issues. Endo: No acute issues. GI: No acute issues. ID: No acute issues Heme/Onc: No acute issues. Psych: No acute issues. Miscellaneous: No acute issues. Prophylaxis: Heparin Diet: Regular (2) Hypertension: Status: Acute
[2021-02-12] MEDS: 0.9 % Sodium Chloride Flush 3 ML SYRINGE IVFLUSH (12:20)
[2021-02-12 13:21] LABS: PTT Heparin Drip 66.6 SEC (53-77.9)
[2021-02-12] MEDS: Morphine Sulfate 2 MG/ML CARTRIDGE IVPUSH ×2 (13:54→20:09)
[2021-02-12 19:49] LABS: PTT Heparin Drip 53.6 SEC (53-77.9)
[2021-02-13] VITALS (8 sets, daily range): BP systolic 121–149; BP diastolic 71–86; PULSE 66–96; RESP 18–20; TEMP 36.4–37.1; O2SAT 86–96; BMI 33.2
[2021-02-13] MEDS: Morphine Sulfate 2 MG/ML CARTRIDGE IVPUSH ×4 (02:40→21:56)
[2021-02-13] MEDS: Heparin Sodium,Porcine/1/2NS 25,000 UNIT/250 ML IV.SOLN 12.36 UNIT IVCONT (02:41)
[2021-02-13 06:46] LABS: Hematocrit 39.1 % (42-52); Hemoglobin 12.8 g/dl (14.0-18.0); Mean Corpuscular HGB Conc 32.7 g/dl (31.0-36.0); Mean Corpuscular Hemoglobin 27.6 pg (27.0-33.0); Mean Corpuscular Volume 84.4 fL (80-98); Mean Platelet Volume 9.7 fL (9.4-12.4); Platelet Count 249 X10*3/uL (160-400); Red Blood Count 4.63 X10*6/uL (4.60-5.80); Red Cell Distribution Width 12.8 % (11.0-16.0)
[2021-02-13 07:02] LABS: PTT Heparin Drip 48.9 SEC (53-77.9)
[2021-02-13 07:24] LABS: Anion Gap 17 (12-20); Blood Urea Nitrogen 10 mg/dL (9-16); Calcium 9.4 mg/dL (8.4-10.2); Carbon Dioxide 26 mmol/L (22-29); Chloride 97 mmol/L (96-108); Creatinine Clr Calc Pharmacy 131.9; Estimated Glomerular Filt Rate > 60; Glucose Fasting 76 mg/dL (60-99); Potassium 4.6 mmol/L (3.3-5.1); Sodium 135 mmol/L (135-145)
[2021-02-13] MEDS: Heparin Sodium,Porcine 5,000 UNIT/ML VIAL 4100 UNIT IVPUSH (07:59)
[2021-02-13] MEDS: 0.9 % Sodium Chloride Flush 3 ML SYRINGE IVFLUSH ×2 (08:00→16:13)
--- NOTE | 2021-02-13 10:10 | HO.PM.IMPN ---
Subjective Subjective Date of Service: 02/13/21 Interval History: sob, chest pain Constitutional Constitutional: Reports no additional constitutional complaints Eyes Eyes: Reports no additional eye complaints Physical Exam Vital Signs: Vital Signs: Last Vital Signs Temp 98.8 F 02/13/21 07:56 Pulse 76 02/13/21 07:56 Resp 18 02/13/21 07:56 BP 126/83 02/13/21 07:56 Pulse Ox 94 02/13/21 07:56 Body Mass Index 33.2 General: AO X 3, ill appearing, sob Resp: CTA bilateral CVS: S1,S2,RRR GI: soft, non tender, non distended Neuro: motor grossly intact Psych: appropriate affect Objective Data Current Medications Generic Name Dose Route Start Last Admin Trade Name Freq PRN Reason Stop Dose Admin Acetaminophen 650 mg 02/12/21 02:25 02/12/21 20:13 Acetaminophen 325 Mg Tablet PO 650 mg Q6H PRN Administration Headache Heparin Sodium (Porcine) 4,100 unit 02/13/21 07:45 02/13/21 07:59 Heparin Sodium,Porcine 5,000 Unit/Ml Vial 40 unit/kg (4100 unit) 4,100 unit IVPUSH Administration PROTOCOL BOLUS PRN 40 unit/kg - Heparin Protocol Protocol Heparin Sodium (Porcine) 8,200 unit 02/13/21 07:45 Heparin Sodium,Porcine 5,000 Unit/Ml Vial 80 unit/kg (8200 unit) IVPUSH PROTOCOL BOLUS PRN 80 unit/kg - Heparin Protocol Protocol Heparin Sodium/Sodium Chloride 25,000 unit in 250 mls @ 0 mls/hr 02/11/21 17:15 02/13/21 08:00 IVCONT 14 units/kg/hr .Q0M BRITTANY 14.42 mls/hr Titration Protocol Per Protocol Methadone HCl 80 mg 02/12/21 11:05 02/13/21 07:58 Methadone Hcl 1 Mg/0.1 Ml Oral.Conc PO 80 mg DAILY BRITTANY Administration Morphine Sulfate 2 mg 02/12/21 13:41 02/13/21 08:11 Morphine Sulfate 2 Mg/Ml Cartridge IVPUSH 2 mg Q4H PRN Administration pain Pharmacy Consult 1 each 02/11/21 18:05 Consult Rx Perform Med Rec MISCELLANE ONCE PRN Consult order Sodium Chloride 3 ml 02/12/21 00:00 08/07/21 08:00 0.9 % Sodium Chloride Flush 3 Ml Syringe IVFLUSH 3 ml QSHIFT BRITTANY Administration Labs CBC & Chem 7: 02/13/21 05:58 02/13/21 05:58 Labs: Laboratory Results - last 24 hr 02/12/21 02/12/21 02/13/21 13:02 19:29 05:58 MCV 84.4 MCH 27.6 MCHC 32.7 RDW 12.8 Plt Count 249 D MPV 9.7 Absolute Nucleated RBC 0.000 Nucleated RBC % (auto) 0.0 PTT (Heparin Protocol) 66.6 D 53.6 Anion Gap Estim Creat Clear Calc Estimated GFR Fasting Glucose Calcium 02/13/21 02/13/21 05:58 05:58 MCV MCH MCHC RDW Plt Count MPV Absolute Nucleated RBC Nucleated RBC % (auto) PTT (Heparin Protocol) 48.9 L Anion Gap 17 Estim Creat Clear Calc 131.9 Estimated GFR > 60 Fasting Glucose 76 Calcium 9.4 Microbiology Microbiology Results: Microbiology 02/11/21 19:22 Blood Culture - Preliminary Blood - Venous No growth after 24 hours. 02/11/21 19:22 Blood Culture - Preliminary Blood - Venous No growth after 24 hours. Assessment and Plan (1) Pulmonary embolism: Status: Acute Assessment and Plan: 45M presented with chest pain and sob, found to be hypoxic and have bilateral PE, was briefly transferred to ICU for worsening respiratory status, tpa was considered at that point, however, patient improved prior to it being given and no longer meeting criteria, he was downgraded to medical floor acute hypoxic respiraotry failure due to bilateral main pulmonary artery PE with right heart strain cotinue IV heparin wean o2 as tolerated continue close monitoring - high risk no indication for TPA at this time opioid dependence methadone Quality Stroke Does the patient have a stroke diagnosis?: No VTE Prior VTE?: No VTE Risk Level:: Medical - moderate - high VTE Device Contraindication: Treatment Not Indicated VTE Drug Contraindication: N/A - Med Ordered
[2021-02-13 14:16] LABS: PTT Heparin Drip 75.7 SEC (53-77.9)
[2021-02-13 20:34] LABS: PTT Heparin Drip 65.2 SEC (53-77.9)
[2021-02-13] MEDS: Heparin Sodium,Porcine/1/2NS 25,000 UNIT/250 ML IV.SOLN 14.42 UNIT IVCONT (21:56)
[2021-02-14 03:14] VITALS: BP 120/82; PULSE 70; RESP 18; TEMP 36.7; O2SAT 97
[2021-02-14 06:00] VITALS: BMI 33.0
[2021-02-14 06:15] LABS: Hematocrit 41.6 % (42-52); Hemoglobin 13.7 g/dl (14.0-18.0); Mean Corpuscular HGB Conc 32.9 g/dl (31.0-36.0); Mean Corpuscular Hemoglobin 27.8 pg (27.0-33.0); Mean Corpuscular Volume 84.6 fL (80-98); Mean Platelet Volume 9.8 fL (9.4-12.4); Platelet Count 253 X10*3/uL (160-400); Red Blood Count 4.92 X10*6/uL (4.60-5.80); Red Cell Distribution Width 12.6 % (11.0-16.0); White Blood Count 9.5 X10*3/uL (4.8-10.8)
[2021-02-14 06:29] LABS: PTT Heparin Drip 67.3 SEC (53-77.9)
[2021-02-14 06:48] LABS: Anion Gap 15 (12-20); Blood Urea Nitrogen 11 mg/dL (9-16); Calcium 9.4 mg/dL (8.4-10.2); Carbon Dioxide 28 mmol/L (22-29); Chloride 99 mmol/L (96-108); Creatinine Clr Calc Pharmacy 116.4; Estimated Glomerular Filt Rate > 60; Glucose Fasting 139 mg/dL (60-99); Potassium 4.8 mmol/L (3.3-5.1); Sodium 137 mmol/L (135-145)
[2021-02-14 08:00] VITALS: BP 114/67; PULSE 80; RESP 16; TEMP 36.2; O2SAT 95
[2021-02-14] MEDS: Morphine Sulfate 2 MG/ML CARTRIDGE IVPUSH ×2 (08:13→20:23)
[2021-02-14] MEDS: 0.9 % Sodium Chloride Flush 3 ML SYRINGE IVFLUSH ×3 (08:16→20:27)
--- NOTE | 2021-02-14 09:33 | HO.PM.IMPN ---
Subjective Subjective Date of Service: 02/14/21 Interval History: still very sob Cardiovascular Cardiovascular: Reports no additional cardiovascular complaints Respiratory Respiratory: Reports no additional respiratory complaints Physical Exam Vital Signs: Vital Signs: Last Vital Signs Temp 97.2 F 02/14/21 08:00 Pulse 80 02/14/21 08:00 Resp 16 02/14/21 08:00 BP 114/67 02/14/21 08:00 Pulse Ox 95 02/14/21 08:00 Body Mass Index 33.0 General: AO X 3, ill appearing, sob Resp:? CTA bilateral CVS: S1,S2,RRR GI: soft, non tender, non distended Neuro:? motor grossly intact Psych: appropriate affect Objective Data Current Medications Generic Name Dose Route Start Last Admin Trade Name Freq PRN Reason Stop Dose Admin Acetaminophen 650 mg 02/12/21 02:25 02/12/21 20:13 Acetaminophen 325 Mg Tablet PO 650 mg Q6H PRN Administration Headache Heparin Sodium (Porcine) 4,100 unit 02/13/21 07:45 02/13/21 07:59 Heparin Sodium,Porcine 5,000 Unit/Ml Vial 40 unit/kg (4100 unit) 4,100 unit IVPUSH Administration PROTOCOL BOLUS PRN 40 unit/kg - Heparin Protocol Protocol Heparin Sodium (Porcine) 8,200 unit 02/13/21 07:45 Heparin Sodium,Porcine 5,000 Unit/Ml Vial 80 unit/kg (8200 unit) IVPUSH PROTOCOL BOLUS PRN 80 unit/kg - Heparin Protocol Protocol Heparin Sodium/Sodium Chloride 25,000 unit in 250 mls @ 0 mls/hr 02/11/21 17:15 02/14/21 06:41 IVCONT 14 units/kg/hr .Q0M BRITTANY 14.42 mls/hr Titration Protocol Per Protocol Methadone HCl 80 mg 02/12/21 11:05 02/14/21 08:13 Methadone Hcl 1 Mg/0.1 Ml Oral.Conc PO 80 mg DAILY BRITTANY Administration Morphine Sulfate 2 mg 02/12/21 13:41 02/14/21 08:13 Morphine Sulfate 2 Mg/Ml Cartridge IVPUSH 2 mg Q4H PRN Administration pain Pharmacy Consult 1 each 02/11/21 18:05 Consult Rx Perform Med Rec MISCELLANE ONCE PRN Consult order Sodium Chloride 3 ml 02/12/21 00:00 02/14/21 08:16 0.9 % Sodium Chloride Flush 3 Ml Syringe IVFLUSH 3 ml QSHIFT BRITTANY Administration Labs CBC & Chem 7: 02/14/21 05:59 02/14/21 05:59 Labs: Laboratory Results - last 24 hr 02/13/21 02/13/21 02/14/21 13:52 20:19 05:59 MCV 84.6 MCH 27.8 MCHC 32.9 RDW 12.6 Plt Count 253 MPV 9.8 Absolute Nucleated RBC 0.000 Nucleated RBC % (auto) 0.0 PTT (Heparin Protocol) 75.7 D 65.2 Anion Gap Estim Creat Clear Calc Estimated GFR Fasting Glucose Calcium 02/14/21 02/14/21 05:59 05:59 MCV MCH MCHC RDW Plt Count MPV Absolute Nucleated RBC Nucleated RBC % (auto) PTT (Heparin Protocol) 67.3 Anion Gap 15 Estim Creat Clear Calc 116.4 Estimated GFR > 60 Fasting Glucose 139 H D Calcium 9.4 Microbiology Microbiology Results: Microbiology 02/11/21 19:22 Blood Culture - Preliminary Blood - Venous No growth after 48 hours. 02/11/21 19:22 Blood Culture - Preliminary Blood - Venous No growth after 48 hours. Assessment and Plan (1) Pulmonary embolism: Status: Acute Assessment and Plan: 45M presented with chest pain and sob, found to be hypoxic and have bilateral PE, was briefly transferred to ICU for worsening respiratory status, tpa was considered at that point, however, patient improved prior to it being given and no longer meeting criteria, he was downgraded to medical floor acute hypoxic respiraotry failure due to bilateral main pulmonary artery PE with right heart strain cotinue IV heparin wean o2 as tolerated, still hypoxic on room air continue close monitoring - high risk opioid dependence methadone Quality Stroke Does the patient have a stroke diagnosis?: No VTE Prior VTE?: No VTE Risk Level:: Medical - moderate - high VTE Device Contraindication: Treatment Not Indicated VTE Drug Contraindication: N/A - Med Ordered
[2021-02-14 11:11] VITALS: BP 120/78; PULSE 65; RESP 18; TEMP 36.2; O2SAT 93
[2021-02-14] MEDS: Heparin Sodium,Porcine/1/2NS 25,000 UNIT/250 ML IV.SOLN 14.42 UNIT IVCONT (15:13)
[2021-02-14] MEDS: Acetaminophen 325 MG TABLET 650 MG PO (15:18)
[2021-02-14 15:58] VITALS: BP 118/74; PULSE 68; RESP 18; TEMP 36.7; O2SAT 96
[2021-02-14 19:35] VITALS: BP 146/78; PULSE 82; RESP 20; TEMP 36.8; O2SAT 93
[2021-02-14] MEDS: hydrOXYzine HCL 25 MG TABLET PO (20:24)
[2021-02-14 23:41] VITALS: BP 140/88; PULSE 61; RESP 18; TEMP 36.4; O2SAT 97
[2021-02-15] MEDS: HYDROmorphone HCl 0.5 MG/0.5 ML SYRINGE IVPUSH ×2 (00:35→11:23)
[2021-02-15 04:00] VITALS: BP 109/64; PULSE 66; RESP 20; TEMP 36.6; O2SAT 96
[2021-02-15 05:55] VITALS: BMI 33.2
[2021-02-15 06:09] LABS: Hematocrit 40.3 % (42-52); Hemoglobin 13.4 g/dl (14.0-18.0); Mean Corpuscular HGB Conc 33.3 g/dl (31.0-36.0); Mean Corpuscular Volume 84.3 fL (80-98); Mean Platelet Volume 9.2 fL (9.4-12.4); Platelet Count 287 X10*3/uL (160-400); Red Blood Count 4.78 X10*6/uL (4.60-5.80); Red Cell Distribution Width 12.8 % (11.0-16.0); White Blood Count 8.9 X10*3/uL (4.8-10.8)
[2021-02-15 06:31] LABS: Anion Gap 15 (12-20); Blood Urea Nitrogen 11 mg/dL (9-16); Calcium 9.3 mg/dL (8.4-10.2); Carbon Dioxide 26 mmol/L (22-29); Chloride 101 mmol/L (96-108); Creatinine Clr Calc Pharmacy 120.5; Estimated Glomerular Filt Rate > 60; Glucose Fasting 90 mg/dL (60-99); Potassium 4.4 mmol/L (3.3-5.1); Sodium 138 mmol/L (135-145)
[2021-02-15 07:05] LABS: PTT Heparin Drip 49.5 SEC (53-77.9)
[2021-02-15 07:58] VITALS: BP 123/75; PULSE 63; RESP 18; TEMP 36.7; O2SAT 95
[2021-02-15] MEDS: Heparin Sodium,Porcine/1/2NS 25,000 UNIT/250 ML IV.SOLN 16.48 UNIT IVCONT (08:13)
[2021-02-15] MEDS: Heparin Sodium,Porcine 5,000 UNIT/ML VIAL 4100 UNIT IVPUSH (08:16)
[2021-02-15 11:11] VITALS: BP 133/84; PULSE 82; RESP 20; TEMP 36.6; O2SAT 92
--- NOTE | 2021-02-15 11:24 | MHC.CM.PN ---
per multi dis rounds dc plan is home no servcies no dc date anticapated at this time
[2021-02-15 12:40] LABS: PTT Heparin Drip 146.4 SEC (53-77.9)
--- NOTE | 2021-02-15 12:52 | P.PNIM_ITS ---
Subjective Subjective Date of Service: 02/15/21 Interval History: sob on minimal exertion Constitutional Constitutional: Reports no additional constitutional complaints Eyes Eyes: Reports no additional eye complaints Physical Exam Vital Signs: Vital Signs: Last Vital Signs Temp 97.9 F 02/15/21 11:11 Pulse 82 02/15/21 11:11 Resp 20 02/15/21 11:11 BP 133/84 02/15/21 11:11 Pulse Ox 92 02/15/21 11:11 Body Mass Index 33.2 General: AO X 3, ill appearing, sob Resp:? CTA bilateral CVS: S1,S2,RRR GI: soft, non tender, non distended Neuro:? motor grossly intact Psych: appropriate affect Objective Data Current Medications Generic Name Dose Route Start Last Admin Trade Name Aleksq PRN Reason Stop Dose Admin Acetaminophen 650 mg 02/12/21 02:25 02/14/21 15:18 Acetaminophen 325 Mg Tablet PO 650 mg Q6H PRN Administration Headache Heparin Sodium (Porcine) 4,100 unit 02/13/21 07:45 02/15/21 08:16 Heparin Sodium,Porcine 5,000 Unit/Ml Vial 40 unit/kg (4100 unit) 4,100 unit IVPUSH Administration PROTOCOL BOLUS PRN 40 unit/kg - Heparin Protocol Protocol Heparin Sodium (Porcine) 8,200 unit 02/13/21 07:45 Heparin Sodium,Porcine 5,000 Unit/Ml Vial 80 unit/kg (8200 unit) IVPUSH PROTOCOL BOLUS PRN 80 unit/kg - Heparin Protocol Protocol Hydromorphone HCl 0.5 mg 02/14/21 20:31 02/15/21 11:23 Hydromorphone Hcl 0.5 Mg/0.5 Ml Syringe IVPUSH 0.5 mg Q4H PRN Administration Breakthrough Pain Hydroxyzine HCl 25 mg 02/14/21 19:55 02/14/21 20:24 Hydroxyzine Hcl 25 Mg Tablet PO 25 mg Q6H PRN Administration anxiety/restlessness Heparin Sodium/Sodium Chloride 25,000 unit in 250 mls @ 0 mls/hr 02/11/21 17:15 02/15/21 08:13 IVCONT 16 units/kg/hr .Q0M BRITTANY 16.48 mls/hr Administration Protocol Per Protocol Methadone HCl 80 mg 02/12/21 11:05 02/15/21 08:17 Methadone Hcl 1 Mg/0.1 Ml Oral.Conc PO 80 mg DAILY [facility] Administration Pharmacy Consult 1 each 02/11/21 18:05 Consult Rx Perform Med Rec MISCELLANE ONCE PRN Consult order Sodium Chloride 3 ml 02/12/21 00:00 02/15/21 08:26 0.9 % Sodium Chloride Flush 3 Ml Syringe IVFLUSH Not Given QSHIFT [facility] Labs CBC & Chem 7: 02/15/21 05:48 02/15/21 05:48 Labs: Laboratory Results - last 24 hr 02/15/21 02/15/21 02/15/21 05:48 05:48 05:48 MCV 84.3 MCH 28.0 MCHC 33.3 RDW 12.8 Plt Count 287 MPV 9.2 L Absolute Nucleated RBC 0.000 Nucleated RBC % (auto) 0.0 PTT (Heparin Protocol) 49.5 L D Anion Gap 15 Estim Creat Clear Calc 120.5 Estimated GFR > 60 Fasting Glucose 90 D Calcium 9.3 02/15/21 11:53 MCV MCH MCHC RDW Plt Count MPV Absolute Nucleated RBC Nucleated RBC % (auto) PTT (Heparin Protocol) 146.4 H* D Anion Gap Estim Creat Clear Calc Estimated GFR Fasting Glucose Calcium Assessment and Plan (1) Pulmonary embolism: Status: Acute Assessment and Plan: 45M presented with chest pain and sob, found to be hypoxic and have bilateral PE, was briefly transferred to ICU for worsening respiratory status, tpa was considered at that point, however, patient improved prior to it being given and no longer meeting criteria, he was downgraded to medical floor acute hypoxic respiraotry failure due to bilateral main pulmonary artery PE with right heart strain continue IV heparin wean o2 as tolerated, still hypoxic on room air, was 84% continue close monitoring - high risk once feeling better and able to wean off o2, will change to NOAC and plan for discharge opioid dependence methadone Quality Stroke Does the patient have a stroke diagnosis?: No VTE Prior VTE?: No VTE Risk Level:: Medical - moderate - high VTE Device Contraindication: Treatment Not Indicated VTE Drug Contraindication: N/A - Med Ordered
--- NOTE | 2021-02-15 13:35 | PM.DS ---
DS: Providers Provider Date of Service: 02/15/21 Date of admission: 02/11/21 18:15 Primary care physician: Cynthia Lucero MD DS: Diagnosis Discharge Diagnosis (1) Pulmonary embolism: Status: Acute DS: Medications Discharge Medications Home Medications: Home Medications Medication Instructions Recorded Confirmed methadone 10 mg/mL oral concentrate 85 mg PO DAILY 02/11/21 02/11/21 Previous Rx's Medication Instructions Recorded apixaban 5 mg (74 tabs) tablets in 10 mg PO PER PKG DIR #[id number] ea 02/15/21 a dose pack (Eliquis DVT-PE Treat 30D Start) DS: Summary Hospital Course Hospital Course: Patient was admitted for acute hypoxic respiratory failure secondary to bilateral main pulmonary artery pulmonary embolism with RV strain. He was started on heparin drip. He was seen by intensive care, did not meet criteria for tPA. Patient continued to require oxygen therapy. He was still desaturating into the low 80s on minimal exertion. However, patient decided to leave against medical advice. At rest he is 92% on room air. I believe he is at high risk for decompensation and if he leaves the hospital, this was explained to the patient and he demonstrated full understanding, but would like to leave anyway. He will be given prescription for Eliquis. Time Spent with Patient Time attestation: Total time spent providing and/or coordinating discharge services: Discharge coordination time: Greater than 30 minutes Quality: Stroke Does the patient have a stroke diagnosis?: No Physical Exam Vital Signs: Vital Signs: Last Vital Signs Temp 97.9 F 02/15/21 11:11 Pulse 82 02/15/21 11:11 Resp 20 02/15/21 11:11 BP 133/84 02/15/21 11:11 Pulse Ox 92 02/15/21 11:11 Body Mass Index 33.2 General: AO X 3, no acute distress Resp: CTA bilateral CVS: S1,S2,RRR GI: soft, non tender, non distended Neuro: motor grossly intact Psych: appropriate affect DS: Data Data Completed and Pending Labs on day of discharge: Laboratory Results - last 24 hr 02/15/21 02/15/21 02/15/21 05:48 05:48 05:48 WBC 8.9 RBC 4.78 Hgb 13.4 L Hct 40.3 L MCV 84.3 MCH 28.0 MCHC 33.3 RDW 12.8 Plt Count 287 MPV 9.2 L Absolute Nucleated RBC 0.000 Nucleated RBC % (auto) 0.0 PTT (Heparin Protocol) 49.5 L D Sodium 138 Potassium 4.4 Chloride 101 Carbon Dioxide 26 Anion Gap 15 BUN 11 Creatinine 0.93 Estim Creat Clear Calc 120.5 Estimated GFR > 60 Fasting Glucose 90 D Calcium 9.3 02/15/21 11:53 WBC RBC Hgb Hct MCV MCH MCHC RDW Plt Count MPV Absolute Nucleated RBC Nucleated RBC % (auto) PTT (Heparin Protocol) 146.4 H* D Sodium Potassium Chloride Carbon Dioxide Anion Gap BUN Creatinine Estim Creat Clear Calc Estimated GFR Fasting Glucose Calcium Preliminary micro results at discharge 02/11/21 19:22 Blood Culture - Preliminary Blood - Venous No growth after 48 hours. 02/11/21 19:22 Blood Culture - Preliminary Blood - Venous No growth after 48 hours. Discharge Plan Discharge Patient Disposition: Left Against Medical Advice Discharge Diagnosis: pulmonabry embolism Referrals: Cynthia Adhikari MD [Primary Care Provider] - 1 Week Discharge Medications: New Eliquis DVT-PE Treat 30D Start 5 mg (74 tabs) tablets,dose pack 10 mg PO PER PKG DIR Qty: 74 RF: 0 Continued methadone 10 mg/mL Concentrate 85 mg PO DAILY RF: 0 Discharge Orders: Discharge Order (Routine); Ordered 02/15/21 Ordered By: Tung Simons Diet: advance to usual diet Activity on Discharge: As tolerated Care Plan Goals: recovery Health Concerns: pulmonary embolism Plan of Treatment: you are leaving against medical advice, you are at high risk for sudden , take eliquis as prescribed. Assessment: see above
--- NOTE | 2021-02-15 13:40 | MHC.CM.PN ---
pt left ama
[2021-02-15] MEDS: Apixaban 5 MG TABLET 10 MG PO (14:08)
--- NOTE | 2021-02-15 14:13 | PC.NURSE ---
sat down with patient to discuss the potential consequences of going home against medical advice. tried to convince patient to stay for treatment. asked him what I could do do convince him to stay. Patient states that there is nothing that would change his mind. He is well aware of the consequences and signed ama form. Discussed with significant other as well and unable to convince to stay. Dr. Thomas aware of patient leaving AMA. REBECCA Moscoso at bedside too.
== END 2021-02-15 14:16 | disposition left against medical advice (07) | DRG 134 ==
LOC: HO.ED 17:15 → HO.EDOVER 18:20 → HO.ICU 02-12 00:43 → HO.IMC 02-12 09:37
PROVIDERS: Internal Medicine Pulmonary Disease; Physician Assistant Medical; Registered Nurse Community Health; Admitting Provider Internal Medicine; Emergency Provider Emergency Medicine; PCP Internal Medicine; Visit Provider Internal Medicine
DX: I26.09 Other pulmonary embolism with acute cor pulmonale (principal); J96.01 Acute respiratory failure with hypoxia; F11.20 Opioid dependence, uncomplicated; I10 Essential (primary) hypertension; Z20.822 Contact with and (suspected) exposure to COVID-19
CPT/HCPCS: 0241U; 36415; 71046; 71275; 80048; 80053; 81001; 82040; 82803; 83605; 83735; 83880; 84100; 84484; 85025; 85027; 85379; 85610; 85730; 87040; 93005; 93306; 93970; 96365; 96375; 96376; 99219; 99285; 99291; J1170; J2060; J2270; J2405; Q9967

== ENCOUNTER 2023-02-23 15:13 | Outpatient (AMB) | payer OTHER, SELFPAY ==
[2023-02-23 15:21] VITALS: BP 132/90; PULSE 76; O2SAT 96
--- NOTE | 2023-02-23 15:21 | A.OFFPC_ITS ---
Vital Signs 02/23/23 15:21 Height 5 ft 9 in BP 132/90 H Blood Pressure Location Lt brachial Position Sitting Pulse 76 Pulse Source Pulse Oximeter Pulse Oximetry (%) 96 Oxygen Delivery Method Room Air Intake Visit Reasons: abdominal pain, right leg pain Intake Note: Pt is here for abdominal and right leg pain. Vascular Physician Required: No Accompanied by: Spouse Allergies No Known Allergies Allergy (Verified 02/23/23 15:47) Medication List - Last Reconciled 02/23/23 by Cynthia Lucero MD apixaban (Eliquis) 5 mg PO BID 90 days baclofen 10 mg PO QID bisacodyl 10 mg OH QPM cefpodoxime 200 mg PO Q12H atc-ajucprcmz-QC-acetaminophen 30-15-500mg(d)/ 2-30-15-500 mg (Tylenol Cold-Flu Multi-Act D-N) 2 ea PO .every 8 hrs PRN docusate sodium 100 mg PO BID enoxaparin (Lovenox) 40 mg (0.4 mL) subcut DAILY gabapentin 400 mg PO QID hospital bed As directed hydromorphone 0 mg PO hydroxyzine pamoate 25 mg PO BID PRN melatonin 3 mg PO BEDTIME methadone 85 mg PO DAILY ncnqrlfg-ptfz-IA-calcium-mins 9 mg iron-400 mcg (Thera M Plus (ferrous fumarate)) 1 tab PO DAILY oxybutynin chloride 0 mg PO sennosides (senna) 17.2 mg PO DAILY sertraline 25 mg PO BEDTIME Tobacco use date assessed: 02/23/23 Dental Screening Dental Screen Date: 02/23/23 Did you have a dental visit in the last 12 months?: No Did you have a dental problem in the last 6 months where you did not have access to dental care?: No Was dental information given to patient?: Patient has dentist HPI HPI Comments History of Present Illness Details This is a 47-year-old male with IV heroin and cocaine use in remission on methadone, paraplegia, neurogenic bladder and mild major depression that comes today accompanied by life partner Iqra Arora for follow-up on his conditions. In 12/14/2022 he went to [facility] ER due to bilateral lower extremity paresthesias, weakness and difficulty walking. MRI showed T8 fracture, epidural hematoma and severe canal stenosis. Neuro surgery performed T8 decompression. Then he developed a T8 hemangioma requiring laminectomy, extension and debulking. After the 1st surgery he was paraplegic. He is currently in a wheelchair and needs assistance in basic activities of daily living such as bathing, toileting, mobility transfer from bed to wheelchair and dressing/undressing. Due to this matter he will benefit from a hospital bed. He has neurogenic bladder requiring Musa catheter to be changed every 4 hours. This is follow by Urology. He also has depression and was started on sertraline. Doing well on methadone and is follow [facility]. Definitely needs an apartment in 1st floor appropriate for handicap. [facility] Medical History (Updated 02/24/23 @ 05:48 by Cynthia Lucero MD) Class 1 obesity with body mass index (BMI) of 33.0 to 33.9 in adult Elevated blood pressure reading without diagnosis of hypertension Heroin use disorder, mild Heroin use disorder, mild, in sustained remission Hypertension Keloid scar Methadone use Right leg DVT Right upper quadrant abdominal pain Surgical History (Updated 02/23/23 @ 15:30 by BRIAN Jauregui) Keloid scar of skin S/P spinal surgery Social History Housing: House Alcohol intake: former Patient Tobacco Use Status: Current someday Tobacco user Cigarettes Per Day: 2 e-Cigarette/Vaping Use: Never Used Second Hand Smoke Exposure: No Substance Use Type: Crack/Cocaine and Heroin service: No Current occupational status: employed Cognitive needs: No Hearing needs: No Vision needs: No Questionnaire PHQ-9 Over the last 2 weeks, how often have you been bothered by any of the following problems? 1. Little interest or pleasure in doing things: several days 2. Feeling down, depressed, or hopeless: more than half the days 3. Trouble falling or staying asleep, or sleeping too much: nearly every day 4. Feeling tired or having little energy: nearly every day 5. Poor appetite or overeating: not at all 6. Feeling bad about yourself - or that you are a failure or have let yourself or your family down: not at all 7. Trouble concentrating on things, such as reading the newspaper or watching television: several days 8. Moving or speaking so slowly that other people could have noticed. Or the opposite - being so fidgety or restless that you have been moving around a lot more than usual: nearly every day 9. Thoughts that you would be better off or of hurting yourself in some way: not at all Total score: 13 [id number] - PHQ-9 Billing: Yes Source: Developed by Drs. Klaus Powell, Delia Grajeda, Jonah Reveles and colleagues, with an educational saman from [employer]. Thrive Questionnaire Date Thrive assessed: 02/23/23 I am a: Patient What is your living situation today?: I have a steady place to live Within the past 12 months, did the food you bought not last and you didn't have the money to get more?: Never true Within the past 12 months, did you worry whether your food would run out before you got money to buy more?: Never true Do you have trouble paying for medicines?: No Do you have trouble getting transportation to medical appointments?: No Do you have trouble paying your heating and electricity bill?: No Do you have trouble taking care of your child, family member or friend?: No Do you have trouble with day-to-day activities such as bathing, preparing meals, shopping, managing finances, etc.?: No Are you currently unemployed and looking for a job?: No Are you interested in more education?: No Please select the resources that you would like help with: None Currently or been in a relationship where the following occur: no concerns reported AUDIT C Alcohol Use Questionnaire (AUDIT-C) 1. How often do you have a drink containing alcohol?: Never 3. How often do you have six or more drinks on one occasion?: Never Total Score: 0 HERSON-7 AMB Questionnaire HERSON-7 Date HERSON - 7 assessed: 02/23/23 Feeling nervous, anxious, or on edge: 3 = Nearly every day Not being able to stop or control worryin = Not at all Worrying too much about different things: 3 = Nearly every day Trouble relaxin = Nearly every day Being so restless that it is hard to sit still: 3 = Nearly every day Becoming easily annoyed or irritable: 3 = Nearly every day Feeling afraid as if something awful might happen: 0 = Not at all Total HERSON-7 score (0-4 normal; 5-9 mild; 10-14 moderate; 15-21 severe): 15 Source: Developed by Drs. Klaus Powell, Delia Grajeda, Jonah Reveles and colleagues, with an educational saman from [employer]. HERSON-7 Assessment Billing HERSON-7 Assessment Tool: HERSON-7 Assessment 74719 Review of Systems Const All systems reviewed & are unremarkable except as noted in HPI and below Eyes Reports no additional complaints, Denies change in vision and Denies other visual disturbances Card Denies chest pain at rest, Denies chest pain with activity, Denies edema, Denies irregular heart rhythm, Denies claudication, Denies dyspnea, Denies dyspnea on exertion, Denies orthopnea, Denies paroxysmal nocturnal dyspnea and Denies slow heart rate Resp Denies cough, Denies dyspnea and Denies dyspnea on exertion GI Denies abdominal pain, Denies change in bowel habits, Denies excessive flatus, Denies nausea and Denies vomiting Musc Denies atrophy, Denies deformity and Denies limited range of motion Skin/Breast Denies bleeding lesions, Denies changing lesions and Denies rash Neuro Denies behavioral changes and Denies lack of coordination Psych Denies behavioral changes and Reports depression Physical exam (Primary Care) Vital Signs: Last Vital Signs Pulse 76 02/23/23 15:21 BP 132/90 H 02/23/23 15:21 Pulse Ox 96 02/23/23 15:21 Oxygen Delivery Method Room Air 02/23/23 15:21 Tobacco/Smoking Status: Tobacco use Status Tobacco use date assessed 02/23/23 02/23/23 15:40 Patient Tobacco Use Status Current someday Tobacco 02/23/23 15:27 e-Cigarette/Vaping Use Never Used 02/23/23 15:27 PHQ-9: PHQ-9 Score PHQ-9: Total score 13 02/23/23 15:46 Thrive Assessment: Date of Thrive Assessment Date Thrive assessed 02/23/23 02/23/23 15:40 Currently or been in a relationship where the following occur: no concerns reported Const Limitations: wheelchair Eyes General: appearance normal, both eyes and all related structures Eyelids: Yes eyelids normal Conjunctivae: conjunctivae normal Neck Neck: Yes normal visual inspection and Yes supple Resp Effort & Inspection: normal respiratory effort Auscultation: clear to auscultation bilaterally Cardio Jugular venous distension: no JVD Rate: regular rate Rhythm: regular rhythm Heart sounds: S1 normal heart sound present and S2 normal heart sound present Neuro Motor exam (neuro): Abnormal motor strength present (0/5 in lower limbs bilateral, 5/5 bilateral upper limbs) Assessment and Plan Assessment & Plan (1) Paraplegia: Code(s): G82.20 - Paraplegia, unspecified Plan: Needs assistance in basic activities of daily living. Continue wheelchair as needed. (2) Neurogenic bladder: Code(s): N31.9 - Neuromuscular dysfunction of bladder, unspecified Plan: Continue Musa catheter change every 4 hours. (3) Heroin use disorder, mild, in sustained remission: Code(s): F11.11 - Opioid abuse, in remission Plan: Continue methadone. (4) Mild major depression: Code(s): F32.0 - Major depressive disorder, single episode, mild Plan: Continue sertraline Medications: New surgical lubricant jelly (Surgilube topical gel) 1 ea topical .every 4 hours 30 days 4,320 grams 1RF [cathteter straidght] Use every 4 hours 180 ea 6RF R33.9 - Retention of urine, unspecified gabapentin 400 mg PO QID 30 days 120 caps 0RF docusate sodium 100 mg PO BID 30 days PRN 60 caps 2RF constipation cefpodoxime 200 mg PO Q12H 7 days 14 tabs 0RF bisacodyl 10 mg OH QPM 50 days PRN 50 ea 2RF constipation baclofen 10 mg PO QID 30 days 120 tabs 2RF melatonin 3 mg PO BEDTIME 90 days 90 tabs 1RF oxybutynin chloride 5 mg PO DAILY 90 days 90 tabs 0RF sennosides (senna) 17.2 mg (2 x 8.6 mg) PO DAILY 90 days 180 tabs 1RF sertraline 25 mg PO BEDTIME 90 days 90 tabs 1RF Refilled apixaban (Eliquis) 5 mg PO BID 90 days 180 tabs 1RF I26.99 - Other pulmonary embolism without acute cor pulmonale Coding Level of Care Code Est Pt Level 4 (29528) Diagnoses Paraplegia G82.20 Neurogenic bladder N31.9 Heroin use disorder, mild, in sustained remission F11.11 Mild major depression F32.0 Additional Codes HERSON-7 Assessment Billing - HERSON-7 Assessment Tool: HERSON-7 Assessment 16911 ([id number]) Time Spent (min) 26
== END 2023-02-23 16:02 | disposition home or self-care (01) ==
PROVIDERS: PCP Internal Medicine; Visit Provider Internal Medicine
DX: G82.20 Paraplegia, unspecified (principal); N31.9 Neuromuscular dysfunction of bladder, unspecified; F11.11 Opioid abuse, in remission; F32.0 Major depressive disorder, single episode, mild
CPT/HCPCS: 99214

== ENCOUNTER 2023-05-17 12:03 | Outpatient (AMB) | payer OTHER, SELFPAY ==
[2023-05-17 12:32] VITALS: BP 138/80; PULSE 87; O2SAT 95
--- NOTE | 2023-05-17 12:32 | MHC.PC.OV ---
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 Required: No Accompanied by: Self / Same As Patient Allergies No Known Allergies Allergy (Verified 05/17/23 13:02) Medication List - Last Reconciled 05/17/23 by Cynthia Lucero MD acetaminophen 500 mg PO Q6H PRN 30 days apixaban (Eliquis) 5 mg PO BID 90 days baclofen 10 mg PO QID 30 days bisac[address] QPM PRN 50 days [cathteter straidght Use every 4 hours] docusate sodium 100 mg PO BID PRN 30 days enoxaparin (Lovenox) 40 mg (0.4 mL) subcut DAILY gabapentin 400 mg PO QID [home delivery of methadone per clinic dose Start date: 03/30/2023 End date: 03/30/2024] hospital bed As directed hydromorphone 0 mg PO hydroxyzine pamoate 25 mg PO BID PRN melatonin 3 mg PO BEDTIME 90 days methadone 85 mg PO DAILY kjjfhhmq-hobp-QP-calcium-mins 9 mg iron-400 mcg (Thera M Plus (ferrous fumarate)) 1 tab PO DAILY oxybutynin chloride 5 mg PO DAILY 90 days sennosides (senna) 17.2 mg (2 x 8.6 mg) PO DAILY 90 days sertraline 25 mg PO BEDTIME 90 days surgical lubricant jelly (Surgilube topical gel) 1 ea topical .every 4 hours 30 days Tobacco use date assessed: 05/17/23 HPI HPI Comments History of Present Illness Details This is a 48-year-old male with mild major depression, constipation due to opiate therapy. Mild heroin use disorder in sustained remission on methadone and paraplegia that comes today in a wheelchair alone in the room for follow-up on his conditions. Depression somewhat stable with sertraline. Constipation still present with medications. Heroin use disorder stable with methadone. He has paraplegia and needs assistance in mobility transfer, bathing, toileting, dressing/undressing and it is in desperate need of a UPHOLSTERY INSTRUCTOR. Ten post paper were filled out and faxed today. No chest pain or shortness of breath. Complains of a rash in bilateral lower limbs and feet. Also has a diaper rash. Has self catheterization for the urine. [facility] Medical History (Updated 05/17/23 @ 13:29 by Cynthia Lucero MD) Elevated blood pressure reading without diagnosis of hypertension Heroin use disorder, mild Keloid scar Right upper quadrant abdominal pain Heroin use disorder, mild, in sustained remission Methadone use Class 1 obesity with body mass index (BMI) of 33.0 to 33.9 in adult Right leg DVT Hypertension Surgical History S/P spinal surgery Keloid scar of skin Social History Housing: House Alcohol intake: former Patient Tobacco Use Status: Current someday Tobacco user Cigarettes Per Day: 2 e-Cigarette/Vaping Use: Never Used Second Hand Smoke Exposure: No Substance Use Type: Crack/Cocaine and Heroin service: No Current occupational status: employed Cognitive needs: No Hearing needs: No Vision needs: No Questionnaire Thrive Questionnaire Date Thrive assessed: 02/23/23 AUDIT C Alcohol Use Questionnaire (AUDIT-C) 1. How often do you have a drink containing alcohol?: Never 3. How often do you have six or more drinks on one occasion?: Never Total Score: 0 HERSON-7 AMB Questionnaire HERSON-7 Date HERSON - 7 assessed: 02/23/23 Source: Developed by Drs. Klaus Powell, Delia Grajeda, Jonah Reveles and colleagues, with an educational saman from [employer]. Review of Systems Const All systems reviewed & are unremarkable except as noted in HPI and below Eyes Reports no additional complaints, Denies change in vision and Denies other visual disturbances Card Denies chest pain at rest, Denies chest pain with activity, Denies edema, Denies irregular heart rhythm, Denies claudication, Denies dyspnea, Denies dyspnea on exertion, Denies orthopnea, Denies paroxysmal nocturnal dyspnea and Denies slow heart rate Resp Denies cough, Denies dyspnea and Denies dyspnea on exertion GI Denies abdominal pain, Denies change in bowel habits, Denies excessive flatus, Denies nausea and Denies vomiting Denies urinary hesitancy, Denies urinary incontinence and Denies urinary urgency Musc Denies abnormal gait, Denies atrophy, Denies deformity and Denies limited range of motion Skin/Breast Denies bleeding lesions, Denies changing lesions and Denies rash Neuro Denies abnormal gait and Denies lack of coordination Physical exam (Primary Care) Vital Signs: Last Vital Signs Pulse 87 05/17/23 12:32 BP 138/80 05/17/23 12:32 Pulse Ox 95 05/17/23 12:32 Oxygen Delivery Method Room Air 05/17/23 12:32 Tobacco/Smoking Status: Tobacco use Status Tobacco use date assessed 05/17/23 05/17/23 12:33 Patient Tobacco Use Status Current someday Tobacco 05/17/23 12:33 e-Cigarette/Vaping Use Never Used 05/17/23 12:33 Thrive Assessment: Date of Thrive Assessment Date Thrive assessed 02/23/23 05/17/23 12:33 Const Limitations: wheelchair Eyes General: appearance normal, both eyes and all related structures Eyelids: Yes eyelids normal Conjunctivae: conjunctivae normal Neck Neck: Yes normal visual inspection and Yes supple Resp Effort & Inspection: normal respiratory effort Auscultation: clear to auscultation bilaterally Cardio Jugular venous distension: no JVD Rate: regular rate Rhythm: regular rhythm Heart sounds: S1 normal heart sound present and S2 normal heart sound present Skin Other: Maculopapular rash in lower limbs Extrem Other: paraplegia Assessment and Plan Assessment & Plan (1) Mild major depression: Code(s): F32.0 - Major depressive disorder, single episode, mild Plan: Continue sertraline. (2) Paraplegia: Code(s): G82.20 - Paraplegia, unspecified Plan: Continue the use of a wheelchair. Continue self catheterization for urine. Needs UPHOLSTERY INSTRUCTOR for assistance in basic activities of daily living. (3) Heroin use disorder, mild, in sustained remission: Code(s): F11.11 - Opioid abuse, in remission Plan: Continue methadone. (4) Constipation due to opioid therapy: Code(s): K59.03 - Drug induced constipation; T40.2X5A - Adverse effect of other opioids, initial encounter Plan: Continue docusate as needed. Medications: New hydrocortisone 1% (Anti-Itch (hydrocortisone)) 1 appl topical TID 15 days PRN 28.4 grams 2RF skin irritation Coding Level of Care Code Est Pt Level 4 (31165) Diagnoses Mild major depression F32.0 Paraplegia G82.20 Heroin use disorder, mild, in sustained remission F11.11 Constipation due to opioid therapy K59.03; T40.2X5A Time Spent (min) 24
== END 2023-05-17 13:14 | disposition home or self-care (01) ==
PROVIDERS: PCP Internal Medicine; Visit Provider Internal Medicine
DX: F32.0 Major depressive disorder, single episode, mild (principal); G82.20 Paraplegia, unspecified; F11.11 Opioid abuse, in remission; K59.03 Drug induced constipation; T40.2X5A Adverse effect of other opioids, initial encounter
CPT/HCPCS: 99214

== ENCOUNTER 2023-06-27 10:52 | Outpatient (AMB) | payer OTHER, SELFPAY ==
[2023-06-27 10:59] VITALS: BP 122/80; BMI 36.2
--- NOTE | 2023-06-27 10:59 | A.OFFPC_ITS ---
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 Required: No Accompanied by: Self / Same As Patient Allergies No Known Allergies Allergy (Verified 06/27/23 11:07) Medication List - Last Reconciled 06/27/23 by Cynthia Lucero MD acetaminophen 500 mg PO Q6H PRN 30 days apixaban (Eliquis) 5 mg PO BID 90 days baclofen 10 mg PO QID 30 days bisacodyl 10 mg VT QPM PRN 50 days [cathteter straidght Use every 4 hours] docusate sodium 100 mg PO BID PRN 30 days gabapentin 400 mg PO QID [home delivery of methadone per clinic dose Start date: 03/30/2023 End date: 03/30/2024] hospital bed As directed hydrocortisone 1% (Anti-Itch (hydrocortisone)) 1 appl topical TID PRN 15 days hydromorphone 0 mg PO hydroxyzine pamoate 25 mg PO BID PRN melatonin 3 mg PO BEDTIME 90 days methadone 85 mg PO DAILY ioyotnoe-bdma-SP-calcium-mins 9 mg iron-400 mcg (Thera M Plus (ferrous fumarate)) 1 tab PO DAILY oxybutynin chloride 5 mg PO DAILY 90 days sennosides (senna) 17.2 mg (2 x 8.6 mg) PO DAILY 90 days sertraline 25 mg PO BEDTIME 90 days surgical lubricant jelly (Surgilube topical gel) 1 ea topical .every 4 hours 30 days Tobacco use date assessed: 06/27/23 Dental Screening Dental Screen Date: 06/27/23 Did you have a dental visit in the last 12 months?: No Did you have a dental problem in the last 6 months where you did not have access to dental care?: No Was dental information given to patient?: Patient has dentist HPI HPI Comments History of Present Illness Details This is a 48-year-old male with paraplegia, mild heroin disorder in remission and mild major depression that comes for his physical exam. Has never had a colonoscopy and will have Cologuard ordered. He is ambulating with walker therefore what he does is to seat in the walker and slight himself to move because his wheelchair does not fit in the car and they are trying to get it to fix. He has 0-5 strength in bilateral lower limbs. Has to catheterization his urine. Has severe constipation with 1 bowel movement per week. Will start him on lactulose 3 times a day as needed. Depression still present but stable with medications. On methadone for his heroin disorder. No chest pain or shortness of breath. Complains of right leg pain. [facility] Medical History Elevated blood pressure reading without diagnosis of hypertension Heroin use disorder, mild Keloid scar Right upper quadrant abdominal pain Heroin use disorder, mild, in sustained remission Methadone use Class 1 obesity with body mass index (BMI) of 33.0 to 33.9 in adult Right leg DVT Hypertension Surgical History S/P spinal surgery Keloid scar of skin Family History (Updated 06/27/23 @ 12:03 by Cynthia Lucero MD) Father No problems noted. Mother No problems noted. Social History Housing: House Alcohol intake: former Patient Tobacco Use Status: Former Tobacco user Cigarettes Per Day: 2 e-Cigarette/Vaping Use: Never Used Second Hand Smoke Exposure: No Substance Use Type: Crack/Cocaine and Heroin service: No Current occupational status: unemployed Cognitive needs: Yes Hearing needs: No Vision needs: No Questionnaire Thrive Questionnaire Date Thrive assessed: 02/23/23 HERSON-7 AMB Questionnaire HERSON-7 Date HERSON - 7 assessed: 02/23/23 Source: Developed by Drs. Klaus Powell, Delia Grajeda, Jonah Reveles and colleagues, with an educational saman from [employer]. Review of Systems Const All systems reviewed & are unremarkable except as noted in HPI and below Eyes Reports no additional complaints, Denies change in vision and Denies other visual disturbances ENT Denies change in voice, Denies nasal discharge and Denies sinus pain Card Denies chest pain at rest, Denies chest pain with activity, Denies edema, Denies irregular heart rhythm, Denies claudication, Denies dyspnea, Denies dyspnea on exertion, Denies orthopnea, Denies paroxysmal nocturnal dyspnea and Denies slow heart rate Resp Denies cough, Denies dyspnea and Denies dyspnea on exertion GI Denies abdominal pain, Denies change in bowel habits, Denies excessive flatus, Denies nausea and Denies vomiting Denies urinary hesitancy, Denies urinary incontinence and Denies urinary urgency Musc Denies abnormal gait, Denies atrophy, Denies deformity and Denies limited range of motion Skin/Breast Denies bleeding lesions, Denies changing lesions and Denies rash Neuro Denies abnormal gait, Denies behavioral changes, Denies confusion and Denies la ck of coordination Psych Denies behavioral changes and Denies confusion Physical exam (Primary Care) Vital Signs: Last Vital Signs BP 122/80 06/27/23 10:59 BMI result Body Mass Index 36.2 Tobacco/Smoking Status: Tobacco use Status Tobacco use date assessed 06/27/23 06/27/23 11:03 Patient Tobacco Use Status Former Tobacco user 06/27/23 11:03 e-Cigarette/Vaping Use Never Used 06/27/23 11:03 Thrive Assessment: Date of Thrive Assessment Date Thrive assessed 02/23/23 06/27/23 11:03 Const Other: In pain General: alert; No confusion Orientation/consciousness: patient oriented x3 and No confusion Limitations: ambulation with walker HENMT Head: Yes normal to inspection, Yes normocephalic and Yes atraumatic Ears: external ears normal Eyes General: appearance normal, both eyes and all related structures Eyelids: Yes eyelids normal Conjunctivae: conjunctivae normal Neck Neck: Yes normal visual inspection and Yes supple Resp Effort & Inspection: normal respiratory effort Auscultation: clear to auscultation bilaterally Cardio Jugular venous distension: no JVD Rate: regular rate Rhythm: regular rhythm Heart sounds: S1 normal heart sound present and S2 normal heart sound present GI Inspection: Yes normal to inspection Palpation (GI): Soft to palpation and nontender Auscultation: normal bowel sounds Skin General skin exam: no rashes or lesions noted Neuro General: patient oriented x3 and No confusion Motor exam (neuro): Abnormal motor strength present (0/5 in lower limbs, 5/5 in upper limbs) Extrem Other: right leg tenderness Psych Affect: Sad affect present Office Procedures Flu Questionnaire Does the patient have a severe egg allergy?: No Immunizations flu vacc [id number] 6mos up(PF) 60 mcg(15 mcgx4)/0.5 mL IM syringe Performing Provider: Cynthia Lucero MD [facility] Documented (not given) by: MIL Oakley on 06/27/23 12:27 Reason Not Given: Patient Refused Assessment and Plan Assessment & Plan (1) Physical exam: Code(s): Z00.00 - Encounter for general adult medical examination without abnormal findings Plan: Repeat in a year. (2) Mild major depression: Code(s): F32.0 - Major depressive disorder, single episode, mild Plan: Continue sertraline. (3) Paraplegia: Code(s): G82.20 - Paraplegia, unspecified Plan: Continue the use of wheelchair. 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 (4) Heroin use disorder, mild, in sustained remission: Code(s): F11.11 - Opioid abuse, in remission Plan: Continue methadone at clinic. Orders: Orders Lipid Panel Today E78.5 - Hyperlipidemia, unspecified Comprehensive [place]. Panel Fast Today N31.9 - Neuromuscular dysfunction of bladder, unspecified Influenza [id number] Immunization Today Z23 - Encounter for immunization Vitamin D 25-OH Total Today E55.9 - Vitamin D deficiency, unspecified US venous duplex LE RT Today M79.604 - Pain in right leg UA CC w/rflx Micro + Cult Today N31.9 - Neuromuscular dysfunction of bladder, unspecified, R30.0 - Dysuria Complete Blood Count Auto Diff Today D64.9 - Anemia, unspecified, I26.99 - Other pulmonary embolism without acute cor pulmonale Vitamin B12 and Folate Today E53.8 - Deficiency of other specified B group vitamins IRON PROFILE Today D64.9 - Anemia, unspecified Medications: New lactulose 20 grams (30 mL) PO TID PRN 2,700 mL 6RF constipation 30 days K59.03 - Drug induced constipation, T40.2X5A - Adverse effect of other opioids, initial encounter Coding Level of Care Code Est Pt Prev Care 40-64y(73343) Diagnoses Physical exam Z00.00 Mild major depression F32.0 Paraplegia G82.20 Heroin use disorder, mild, in sustained remission F11.11 Time Spent (min) 31
== END 2023-06-27 11:19 | disposition home or self-care (01) ==
PROVIDERS: PCP Internal Medicine; Visit Provider Internal Medicine
DX: Z00.00 Encounter for general adult medical examination without abnormal findings (principal); F32.0 Major depressive disorder, single episode, mild; G82.20 Paraplegia, unspecified; F11.11 Opioid abuse, in remission
CPT/HCPCS: 99396

== ENCOUNTER 2023-08-23 15:13 | Outpatient (REF) | payer OTHER, SELFPAY ==
--- NOTE | ~2023-08-23 | US_ITS ---
EXAMINATION: US VENOUS ULTRASOUND WITH DOPPLER LOWER EXTREMITY, RIGHT CLINICAL INFORMATION: Pain COMPARISON: Previous exam February 2021 TECHNIQUE: Ultrasound of the deep veins is performed from the hip to the calf with compression sonography and color and pulse Doppler assessment. Spectral analysis with color-flow imaging is performed. FINDINGS: There is normal venous compression and respiratory variation and augmented flow. The visualized common femoral vein, superficial femoral vein, profunda femoral vein, and popliteal vein shows no evidence of deep venous thrombosis. Calf veins not well visualized. There is no significant popliteal fossa cyst. If the patient's symptoms persist, followup ultrasound in 5 days 7 days might be of value to exclude proximal propagation from a non-visualized calf vein. US/US venous duplex LE RT IMPRESSION: No DVT demonstrated in the right lower extremity. Calf veins not well visualized.
== END 2023-08-23 15:14 | disposition home or self-care (01) ==
LOC: HO.US 15:13
PROVIDERS: PCP Internal Medicine; Visit Provider Internal Medicine
DX: M79.604 Pain in right leg (principal)
CPT/HCPCS: 93971

== ENCOUNTER 2023-08-29 07:50 | Outpatient (REF) | payer OTHER, SELFPAY ==
[2023-08-29 08:22] LABS: MANUAL DIFF FLAG NO
[2023-08-29 08:36] LABS: Basophils Percent Auto 0.6 % (0-2); Eosinophils Absolute Auto 0.2 X10*3/uL (0.0-0.4); Eosinophils Percent Auto 2.3 % (0-4); Hematocrit 43.5 % (42.0-52.0); Hemoglobin 14.3 g/dl (14.0-18.0); Imm Gran Abs Auto 0.03 X10*3/uL (0.00-0.03); Imm Gran Pct Auto 0.5 % (0.0-0.4); Lymphocytes Absolute Auto 1.5 X10*3/uL (1.2-4.9); Lymphocytes Percent Auto 22.2 % (20-40); Mean Corpuscular HGB Conc 32.9 g/dl (31.0-36.0); Mean Corpuscular Volume 85.1 fL (80.0-98.0); Mean Platelet Volume 9.5 fL (9.4-12.4); Monocytes Absolute Auto 0.7 X10*3/uL (0.1-1.2); Monocytes Percent Auto 10.3 % (2-11); Neutrophils Absolute Auto 4.3 x10*3/uL (2.0-8.3); Neutrophils Percent Auto 64.1 % (45-73); Platelet Count 219 X10*3/uL (160-400); Red Blood Count 5.11 X10*6/uL (4.60-5.80); Red Cell Distribution Width 14.2 % (11.0-16.0); White Blood Count 6.6 X10*3/uL (4.8-10.8)
[2023-08-29 09:11] LABS: Alanine Aminotransferase 30 U/L (0-40); Albumin Level 4.2 g/dL (3.5-5.0); Alkaline Phosphatase 140 U/L (39-117); Anion Gap 14 (12-20); Aspartate Amino Transferase 32 U/L (5-37); Bilirubin Total 0.3 mg/dL (0.0-1.0); Blood Urea Nitrogen 12 mg/dL (9-16); Calcium 9.8 mg/dL (8.4-10.2); Carbon Dioxide 26 mmol/L (22-29); Chloride 102 mmol/L (96-108); Cholesterol 216 mg/dL (<200); Estimated Glomerular Filt Rate > 60; Glucose Fasting 93 mg/dL (60-99); HDL Cholesterol 33 mg/dL (>40); Iron 54 mcg/dL (45-160); LDL Cholesterol Calculated 142 mg/dL (<100); Percent Iron Saturation 15 % (15-50); Potassium 4.2 mmol/L (3.3-5.1); Sodium 138 mmol/L (135-145); Total Iron Binding Capacity 372 mcg/dL (228-428); Triglycerides 209 mg/dL (<150); Unsaturated Iron Binding 318 ug/dL
[2023-08-29 09:27] LABS: Vitamin D 25-OH Total 20.3 ng/mL (>30)
[2023-08-29 09:33] LABS: Folate 8.9 ng/mL (> or = 4.0); Vitamin B12 548 pg/mL (200-900)
== END 2023-08-29 07:51 | disposition home or self-care (01) ==
LOC: HO.LAB 07:50
PROVIDERS: PCP Internal Medicine; Visit Provider Internal Medicine
DX: E78.5 Hyperlipidemia, unspecified (principal); R30.0 Dysuria; N31.9 Neuromuscular dysfunction of bladder, unspecified; E55.9 Vitamin D deficiency, unspecified; E53.8 Deficiency of other specified B group vitamins; D64.9 Anemia, unspecified; I26.99 Other pulmonary embolism without acute cor pulmonale
CPT/HCPCS: 36415; 80053; 80061; 82306; 82607; 82746; 83540; 85025

== ENCOUNTER 2023-09-05 07:29 | Outpatient (AMB) | payer OTHER, SELFPAY ==
[2023-09-05 07:31] VITALS: BP 114/78
--- NOTE | 2023-09-05 07:31 | A.OFFPC_ITS ---
Vital Signs 09/05/23 07:31 Height 5 ft 9 in BMI Reason not done Patient refused/unable BP 114/78 Blood Pressure Location Lt brachial Position Sitting Intake Visit Reasons: Discuss chronic issues Intake Note: Patient here to discuss chronic issues Copy Holder Required: No Accompanied by: Self / Same As Patient Allergies No Known Allergies Allergy (Verified 09/05/23 07:52) Medication List - Last Reconciled 09/05/23 by Cynthia Lucero MD acetaminophen 500 mg PO Q6H PRN 30 days [adult diapers pull-ups As directed] apixaban (Eliquis) 5 mg PO BID 90 days baclofen 10 mg PO QID 30 days bisacodyl 10 mg AR QPM PRN 50 days [cathteter straidght Use every 4 hours] cholecalciferol (vitamin D3) 25 mcg PO DAILY 90 days docusate sodium 100 mg PO BID PRN 30 days gabapentin 400 mg PO QID [home delivery of methadone per clinic dose Start date: 03/30/2023 End date: 03/30/2024] hospital bed As directed hydrocortisone 1% (Anti-Itch (hydrocortisone)) 1 appl topical TID PRN 15 days hydromorphone 0 mg PO hydroxyzine pamoate 25 mg PO BID PRN melatonin 3 mg PO BEDTIME 90 days methadone 85 mg PO DAILY nprnmulc-srlo-AR-calcium-mins 9 mg iron-400 mcg 1 tab PO DAILY oxybutynin chloride 5 mg PO DAILY 90 days sennosides (senna) 17.2 mg (2 x 8.6 mg) PO DAILY 90 days sertraline 25 mg PO BEDTIME 90 days Tobacco use date assessed: 09/05/23 Dental Screening Dental Screen Date: 09/05/23 Did you have a dental visit in the last 12 months?: No Did you have a dental problem in the last 6 months where you did not have access to dental care?: No Was dental information given to patient?: Patient has dentist HPI HPI Comments History of Present Illness Details This is a 48-year-old male with paraplegia, mild major depression, mild heroin use disorder in sustained remission with methadone, constipation due to opiate therapy and peripheral vascular disease that comes today for follow-up on his conditions. He is wheelchair dependent and complains of burning like pain in feet most likely due to neuropathy and gabapentin will be increased. Also has insomnia and I will change melatonin to zolpidem. Has constipation still on medications. Depression still present with SSRIs and I will increase the medication. His legs are cold with decreased pulses and I will refer him to vascular surgery. No chest pain or shortness of breath. On methadone clinic for he is mild heroin disorder and has been clean since over a year. Labs were discussed. Cholesterol is elevated but does not require any statin. On vitamin-D supplements for his low vitamin-D. Has a keloid scar in the chest wi th cheese itchy and would like to see General surgery for that matter. [facility] Medical History (Updated 09/05/23 @ 10:24 by Cynthia Lucero MD) Pulmonary embolism Elevated blood pressure reading without diagnosis of hypertension Heroin use disorder, mild Keloid scar Right upper quadrant abdominal pain Heroin use disorder, mild, in sustained remission Methadone use Class 1 obesity with body mass index (BMI) of 33.0 to 33.9 in adult Right leg DVT Hypertension Surgical History S/P spinal surgery Keloid scar of skin Family History Father No problems noted. Mother No problems noted. Social History Housing: House Alcohol intake: former Patient Tobacco Use Status: Former Tobacco user Cigarettes Per Day: 2 e-Cigarette/Vaping Use: Never Used Second Hand Smoke Exposure: No Substance Use Type: Crack/Cocaine and Heroin service: No Current occupational status: unemployed and disabled Cognitive needs: Yes Hearing needs: No Vision needs: No Questionnaire PHQ-9 Over the last 2 weeks, how often have you been bothered by any of the following problems? 1. Little interest or pleasure in doing things: several days 2. Feeling down, depressed, or hopeless: more than half the days 3. Trouble falling or staying asleep, or sleeping too much: nearly every day 4. Feeling tired or having little energy: nearly every day 5. Poor appetite or overeating: not at all 6. Feeling bad about yourself - or that you are a failure or have let yourself or your family down: more than half the days 7. Trouble concentrating on things, such as reading the newspaper or watching television: more than half the days 8. Moving or speaking so slowly that other people could have noticed. Or the opposite - being so fidgety or restless that you have been moving around a lot more than usual: nearly every day 9. Thoughts that you would be better off or of hurting yourself in some way: not at all Total score: 16 Depression Screening Interpretation: Positive (no suicidal thoughts) Depression Screening Follow-up: Existing condition and In treatment Depression Screening Done: Yes 28443 - PHQ-9 Billing: Yes Source: Developed by Drs. Klaus Powell, Delia Grajeda, Jonah Reveles and colleagues, with an educational saman from [employer]. Thrive Questionnaire Date Thrive assessed: 09/05/23 I am a: Patient What is your living situation today?: I have a steady place to live Within the past 12 months, did the food you bought not last and you didn't have the money to get more?: Never true Within the past 12 months, did you worry whether your food would run out before you got money to buy more?: Never true Do you have trouble paying for medicines?: No Do you have trouble getting transportation to medical appointments?: No Do you have trouble paying your heating and electricity bill?: No Do you have trouble taking care of your child, family member or friend?: No Do you have trouble with day-to-day activities such as bathing, preparing meals, shopping, managing finances, etc.?: Yes Are you currently unemployed and looking for a job?: No Are you interested in more education?: No Please select the resources that you would like help with: None Currently or been in a relationship where the following occur: no concerns reported THRIVE Score: 0 AUDIT C Alcohol Use Questionnaire (AUDIT-C) 1. How often do you have a drink containing alcohol?: Never Total Score: 0 HERSON-7 AMB Questionnaire HERSON-7 Date HERSON - 7 assessed: 02/23/23 Feeling nervous, anxious, or on edge: 3 = Nearly every day Not being able to stop or control worryin = Not at all Worrying too much about different things: 3 = Nearly every day Trouble relaxin = Nearly every day Being so restless that it is hard to sit still: 3 = Nearly every day Becoming easily annoyed or irritable: 3 = Nearly every day Feeling afraid as if something awful might happen: 0 = Not at all Total HERSON-7 score (0-4 normal; 5-9 mild; 10-14 moderate; 15-21 severe): 15 Source: Developed by Drs. Klaus Powell, Delia Grajeda, Jonah Reveles and colleagues, with an educational saman from [employer]. HERSON-7 Assessment Billing HERSON-7 Assessment Tool: HERSON-7 Assessment 51926 Review of Systems Const All systems reviewed & are unremarkable except as noted in HPI and below Reports weakness Eyes Reports no additional complaints, Denies change in vision and Denies other visual disturbances Card Denies chest pain at rest, Denies chest pain with activity, Denies edema, Denies irregular heart rhythm, Denies claudication, Denies dyspnea, Denies dyspnea on exertion, Denies orthopnea, Denies paroxysmal nocturnal dyspnea and Denies slow heart rate Resp Denies cough, Denies dyspnea and Denies dyspnea on exertion GI Denies abdominal pain, Denies change in bowel habits, Denies excessive flatus, Denies nausea and Denies vomiting Denies urinary hesitancy, Denies urinary incontinence and Denies urinary urgency Musc Denies atrophy, Denies deformity and Denies limited range of motion Neuro Reports focal weakness, Reports Sensory deficit (Neuro) and Reports weakness Psych Reports abnormal sleep pattern and Reports depression Physical exam (Primary Care) Vital Signs: Last Vital Signs BP 114/78 09/05/23 07:31 Tobacco/Smoking Status: Tobacco use Status Tobacco use date assessed 09/05/23 09/05/23 07:34 Patient Tobacco Use Status Former Tobacco user 09/05/23 07:34 e-Cigarette/Vaping Use Never Used 09/05/23 07:34 PHQ-9: PHQ-9 Score PHQ-9: Total score 16 09/05/23 07:56 Depression Screening Interpretation: Positive (no suicidal thoughts) Depression Screening Follow-up: Existing condition and In treatment Thrive Assessment: Date of Thrive Assessment Date Thrive assessed 09/05/23 09/05/23 07:41 Currently or been in a relationship where the following occur: no concerns reported Const Limitations: wheelchair Neck Neck: Yes normal visual inspection and Yes supple Resp Effort & Inspection: normal respiratory effort Auscultation: clear to auscultation bilaterally Cardio Jugular venous distension: no JVD Rate: regular rate Rhythm: regular rhythm Heart sounds: S1 normal heart sound present and S2 normal heart sound present Skin Other: round macular erythematous lesion in right leg Neuro Sensory Exam: Sensory deficit (Neuro) Assessment and Plan Assessment & Plan (1) Mild major depression: Code(s): F32.0 - Major depressive disorder, single episode, mild Plan: Increase sertraline to 50 mg. (2) Paraplegia: Code(s): G82.20 - Paraplegia, unspecified Plan: Continue the use of wheelchair. Needs assistance in basic activities of daily living and will benefit from REGISTERED RADIOLOGIC TECHNOLOGIST. (3) Heroin use disorder, mild, in sustained remission: Code(s): F11.11 - Opioid abuse, in remission Plan: Continue follow-up with methadone clinic. (4) Peripheral vascular disease: Code(s): I73.9 - Peripheral vascular disease, unspecified Plan: Referred to vascular surgery. (5) Constipation due to opioid therapy: Code(s): K59.03 - Drug induced constipation; T40.2X5A - Adverse effect of other opioids, initial encounter Plan: Continue senna as needed Orders: Referrals General Surgery Referral L91.0 - Hypertrophic scar Vascular Surgery Referral I73.9 - Peripheral vascular disease, unspecified Medications: New zolpidem 10 mg PO BEDTIME 30 days PRN 30 tabs 0RF sleep Changed From dvjgxomq-gnhh-UO-calcium-mins 9 mg iron-400 mcg (Thera M Plus (ferrous fumarate)) 1 tab PO DAILY 90 tabs 3RF To bvhkwzvz-qpmw-KD-calcium-mins 9 mg iron-400 mcg 1 tab PO DAILY 90 tabs 3RF Refilled gabapentin 400 mg PO QID 120 caps 0RF Discontinued melatonin Discontinued Reason: Patient Completed Course 3 mg PO BEDTIME 90 days 90 tabs 1RF hydrocortisone 1% (Anti-Itch (hydrocortisone)) Discontinued Reason: Patient Completed Course 1 appl topical TID 15 days PRN 28.4 grams 2RF skin irritation Coding Level of Care Code Est Pt Level 4 (64069) Diagnoses Mild major depression F32.0 Paraplegia G82.20 Heroin use disorder, mild, in sustained remission F11.11 Peripheral vascular disease I73.9 Constipation due to opioid therapy K59.03; T40.2X5A Additional Codes HERSON-7 Assessment Billing - HERSON-7 Assessment Tool: HERSON-7 Assessment 92020 ([id number]) Time Spent (min) 24
== END 2023-09-05 08:04 | disposition home or self-care (01) ==
PROVIDERS: PCP Internal Medicine; Visit Provider Internal Medicine
DX: G82.20 Paraplegia, unspecified (principal); F32.0 Major depressive disorder, single episode, mild; F11.11 Opioid abuse, in remission; I73.9 Peripheral vascular disease, unspecified; K59.03 Drug induced constipation; T40.2X5A Adverse effect of other opioids, initial encounter
CPT/HCPCS: 99214

== ENCOUNTER 2023-09-06 10:32 | Outpatient (AMB) | payer OTHER, SELFPAY ==
--- NOTE | 2023-09-06 10:38 | MHC.OFFVIS ---
Intake Vital Signs 09/06/23 10:50 Height 5 ft 9 in Weight 245 lb BMI 36.2 BP 128/78 Blood Pressure Location Lt brachial Position Sitting Respiration 12 Pulse 70 Pulse Source Pulse Oximeter Pulse Oximetry (%) 94 Oxygen Delivery Method Room Air Intake Visit Reasons: Pain in right leg, Paraplegia/LVM Intake Note: Patient comes in for initial visit was referred by Primary Care. Reports pain 04/18 Allergies No Known Allergies Allergy (Verified 09/06/23 10:49) HPI HPI Comments History of Present Illness Details rGey is 48 years old gentleman mostly Icelandic speaking with minimal understanding of Greek who is here in my office today to discuss pain in the lower back and pain in the right lower extremity as well as swelling and discoloration of the right lower extremity. He is a heroin addict who is currently on methadone maintenance therapy. He reported that he was not using heroin for past 2 months. He reported today that until December of 2022 everything was normal. He was not wheelchair-bound, and he was not paralyzed. According to his report he had ?blood clot ?in his spine, he was operated on his thoracic spine, and he was paralyzed he has hemiplegia and right lower extremity is affected the most. He denies past medical history, the only surgery he had according to him is thoracic spine surgery. He is addicted to heroin, he is on methadone maintenance therapy however he admits that he is sleeping off infrequently. He denies drinking alcohol he does not smoke cigarettes. [facility], LATER [facility] Medical History (Updated 09/05/23 @ 10:24 by Cynthia Lucero MD) Pulmonary embolism Elevated blood pressure reading without diagnosis of hypertension Heroin use disorder, mild Keloid scar Right upper quadrant abdominal pain Heroin use disorder, mild, in sustained remission Methadone use Class 1 obesity with body mass index (BMI) of 33.0 to 33.9 in adult Right leg DVT Hypertension Surgical History S/P spinal surgery Keloid scar of skin Family History Father No problems noted. Mother No problems noted. Social History Housing: House Alcohol intake: former Patient Tobacco Use Status: Former Tobacco user Cigarettes Per Day: 2 e-Cigarette/Vaping Use: Never Used Second Hand Smoke Exposure: No Substance Use Type: Crack/Cocaine and Heroin service: No Current occupational status: unemployed and disabled Cognitive needs: Yes Hearing needs: No Vision needs: No Review of Systems Const All systems reviewed & are unremarkable except as noted in HPI and below Reports weakness Eyes Reports no additional complaints, Denies change in vision and Denies other visual disturbances Card Denies chest pain at rest, Denies chest pain with activity, Denies edema, Denies irregular heart rhythm, Denies claudication, Denies dyspnea, Denies dyspnea on exertion, Denies orthopnea, Denies paroxysmal nocturnal dyspnea and Denies slow heart rate Resp Denies cough, Denies dyspnea and Denies dyspnea on exertion GI Denies abdominal pain, Denies change in bowel habits, Denies excessive flatus, Denies nausea and Denies vomiting Denies urinary hesitancy, Denies urinary incontinence and Denies urinary urgency Musc Denies atrophy, Denies deformity and Denies limited range of motion Neuro Reports focal weakness, Reports Sensory deficit (Neuro) and Reports weakness Psych Reports abnormal sleep pattern and Reports depression Physical Exam Vital Signs: Last Vital Signs Pulse 70 09/06/23 10:50 Resp 12 09/06/23 10:50 BP 128/78 09/06/23 10:50 Pulse Ox 94 09/06/23 10:50 Oxygen Delivery Method Room Air 09/06/23 10:50 BMI result Body Mass Index 36.2 Const General: cooperative and acute distress mild Nutritional Appearance: obese morbidly obese Orientation/consciousness: patient oriented x3 Chest Other: On inspection of the posterior thoracic spine there is a scar approximately 10 cm long. The scar is very well-healed. Resp Effort & Inspection: normal respiratory effort, able to speak in complete sentences, normal respiratory pattern, no audible wheezes and no cough Cardio Jugular venous distension: no JVD GI Inspection: Yes distended Back/Spine/Pelvis Other: Wheelchair-bound, left lower extremity is paraplegic however he is able to move left lower extremity. Right lower extremities completely paralyzed. Unable to move the right lower extremity. He has significant edema of the right lower extremity, the red discoloration of the ankle and lower leg as well as right foot. There is no DP or PT pulses palpated. Neuro General: patient oriented x3 Sensory Exam: Sensory deficit (Neuro) Assessment & Plan Assessment & Plan (1) Peripheral vascular disease: Code(s): I73.9 - Peripheral vascular disease, unspecified (2) Right leg pain: Code(s): M79.604 - Pain in right leg (3) Constipation due to opioid therapy: Code(s): K59.03 - Drug induced constipation; T40.2X5A - Adverse effect of other opioids, initial encounter (4) Neurogenic bladder: Code(s): N31.9 - Neuromuscular dysfunction of bladder, unspecified (5) Urine retention: Code(s): R33.9 - Retention of urine, unspecified (6) Paraplegia: Code(s): G82.20 - Paraplegia, unspecified (7) Heroin use disorder, mild: Code(s): F11.10 - Opioid abuse, uncomplicated Plan By his primary care physician he was sent to the vascular surgeon for evaluation. However it looks like that he has not aware of that appointment. I think it is necessary for him to be evaluated by vascular surgeon. I will make a referral to Dr. Lora. I am not sure if I can help this patient I need to establish what surgery was performed in the summer of last year. Possibility exists to treat his pain with the pain pump however unfortunately he might not pass psychological evaluation because of his heroin addiction. I will schedule appointment with this patient in 2 weeks, we will try to coincide with the appointment psychological evaluation here in the office he does not all the computer at home. During this appointment I would need to read and evaluate the extension of the procedure he received at [facility]. Coding Level of Care Code New Pt Level 3 (36211) Diagnoses Peripheral vascular disease I73.9 Right leg pain M79.604 Constipation due to opioid therapy K59.03; T40.2X5A Neurogenic bladder N31.9 Urine retention R33.9 Paraplegia G82.20 Heroin use disorder, mild F11.10
[2023-09-06 10:50] VITALS: BP 128/78; PULSE 70; RESP 12; O2SAT 94; BMI 36.2
== END 2023-09-06 11:04 | disposition home or self-care (01) ==
LOC: HO.PMC 10:32
PROVIDERS: PCP Internal Medicine; Referring Provider Internal Medicine; Visit Provider Anesthesiology
DX: I73.9 Peripheral vascular disease, unspecified (principal); M79.604 Pain in right leg; K59.03 Drug induced constipation; T40.2X5A Adverse effect of other opioids, initial encounter; N31.9 Neuromuscular dysfunction of bladder, unspecified; R33.9 Retention of urine, unspecified; G82.20 Paraplegia, unspecified; F11.10 Opioid abuse, uncomplicated
CPT/HCPCS: 99203

== ENCOUNTER → 2023-09-06 10:32 | Outpatient (BNVA) | payer OTHER, SELFPAY | PROVIDERS: PCP Internal Medicine; Referring Provider Internal Medicine; Visit Provider Anesthesiology | DX: M79.604 Pain in right leg (principal); N31.9 Neuromuscular dysfunction of bladder, unspecified; R33.9 Retention of urine, unspecified; I73.9 Peripheral vascular disease, unspecified; G82.20 Paraplegia, unspecified; K59.03 Drug induced constipation; T40.2X5A Adverse effect of other opioids, initial encounter; F11.20 Opioid dependence, uncomplicated; Z99.3 Dependence on wheelchair | CPT/HCPCS: 99202 ==

== ENCOUNTER 2023-09-15 18:50 | Emergency (ER) | payer OTHER, SELFPAY ==
--- NOTE | ~2023-09-15 | XR_ITS ---
EXAMINATION: XR ABDOMEN KUB CLINICAL INDICATION: Abdominal pain COMPARISON: Previous CT April 2020 TECHNIQUE: AP view of the abdomen. FINDINGS: Large amount of stool in the colon suggestive of constipation. No evidence of obstruction. 2 calcifications projecting over the left kidney suggestive of stones measuring 5 mm in the midpole and 3 mm in the lower pole. Limited evaluation of the right kidney due to overlying bowel gas. Calcified phleboliths in the pelvis. Bony structures are unremarkable. XR/XR KUB IMPRESSION: Left renal stones. Constipation.
[2023-09-15 19:03] VITALS: BP 143/95; PULSE 84; RESP 18; TEMP 36.2; O2SAT 97; BMI 36.9
--- NOTE | 2023-09-15 19:03 | ED.GENADULT ---
HPI - General Adult General Chief complaint: Abdominal Pain Stated complaint: belly pain, hasnt gone to bathroom in a month Time Seen by Provider: 09/15/23 22:27 History of Present Illness HPI narrative: The patient is a 48-year-old male who was a paraplegic. He apparently sustained a fracture of thoracic vertebra 8 (T8) In December of 2022. He was seen at [facility] with lower extremity paresthesias. He had a T8 decompression surgery but was ultimately paraplegic despite surgery. Since then he has been catheterizing himself. He has also had problems with constipation since then. He has history of heroin use disorder and is maintained on methadone. The patient has also had problems due to constipation since he developed paraplegia last summer. He has seen his doctor a couple of times since then. He has been put on docusate and lactulose. He comes to the emergency room because he feels he has not had a bowel movement for 3 weeks and his abdomen feels very full and uncomfortable. Related Data Home Medications Medication Instructions Recorded Confirmed hydroxyzine pamoate 25 mg capsule 25 mg PO BID PRN anxiety 02/23/23 06/27/23 methadone 10 mg/mL oral concentrate 85 mg PO DAILY 09/05/23 09/05/23 Previous Rx's Medication Instructions Recorded hospital bed #1 ea 01/30/23 sennosides 8.6 mg tablet (senna) 17.2 mg (2 x 8.6 mg) PO DAILY 90 02/23/23 days #180 tabs sertraline 25 mg tablet 25 mg PO BEDTIME 90 days #90 tabs 02/23/23 [facility] #180 ea 03/02/23 home delivery of methadone per #1 ea 03/30/23 clinic dose docusate sodium 100 mg capsule 100 mg PO BID PRN constipation 30 07/04/23 days #60 caps baclofen 10 mg tablet 10 mg PO QID 30 days #120 tabs 08/05/23 bisacodyl 10 mg rectal suppository 10 mg [place] QPM PRN constipation 50 08/09/23 days #50 ea acetaminophen 500 mg capsule 500 mg PO Q6H PRN fever or pain 30 08/11/23 days #120 caps adult diapers pull-ups #240 ea 08/11/23 apixaban 5 mg tablet (Eliquis) 5 mg PO BID 90 days #180 tabs 08/11/23 oxybutynin chloride 5 mg tablet 5 mg PO DAILY 90 days #90 tabs 08/18/23 cholecalciferol (vitamin D3) 25 25 mcg PO DAILY 90 days #90 caps 08/29/23 mcg (1,000 unit) capsule gabapentin 400 mg capsule 400 mg PO QID #120 caps 09/05/23 multivitamin-iron 9 mg-folic acid 1 tab PO DAILY #90 tabs 09/05/23 400 mcg-calcium and minerals tablet zolpidem 10 mg tablet 10 mg PO BEDTIME PRN sleep 30 days 09/05/23 #30 tabs Allergies Allergy/AdvReac Type Severity Reaction Status Date / Time No Known Allergies Allergy Verified 09/16/23 00:43 Review of Systems Review of Systems: Yes all other systems are reviewed and are negative [facility] Past Medical History Medical History (Updated 09/16/23 @ 03:13 by Domingo Covarrubias MD) Pulmonary embolism Elevated blood pressure reading without diagnosis of hypertension Heroin use disorder, mild Keloid scar Right upper quadrant abdominal pain Heroin use disorder, mild, in sustained remission Methadone use Class 1 obesity with body mass index (BMI) of 33.0 to 33.9 in adult Right leg DVT Hypertension Surgical History S/P spinal surgery Keloid scar of skin Family History Family History Father No problems noted. Mother No problems noted. Social History Social History Housing: House Alcohol intake: former Patient Tobacco Use Status: Former Tobacco user Cigarettes Per Day: 2 Smoked in Last 30 Days: No e-Cigarette/Vaping Use: Never Used Second Hand Smoke Exposure: No Use of substances other than those prescribed or required for medical reasons: No Substance Use Type: Crack/Cocaine and Heroin Advance Directives: No Advance Directives Information Provided: No service: No Current occupational status: unemployed and disabled Cognitive needs: Yes Hearing needs: No Vision needs: No Physical Exam ED Vital Signs: Vital Signs - 24 hr 09/15/23 19:03 09/15/23 22:51 09/16/23 02:25 Temperature 97.2 F 97.1 F 97.4 F Pulse Rate 84 63 63 Respiratory Rate 18 16 16 Blood Pressure 143/95 H 134/93 H 128/80 Pulse Oximetry 97 96 96 Oxygen Delivery Method Room Air Room Air Room Air 09/16/23 03:21 Temperature Pulse Rate 68 Respiratory Rate 16 Blood Pressure 127/80 Pulse Oximetry 97 Oxygen Delivery Method Room Air BMI result Body Mass Index 36.9 Const Other: The patient is awake and alert. He has a chronically ill-appearing 48-year-old who is clearly paraplegic. He did not appear acutely toxic but said his abdomen felt quite uncomfortable. HENMT Other: Face is symmetrical, mucous membranes moist. Eyes Other: Pupils are round equal, conjunctivae clear Neck Other: Moving the neck easily Resp Effort & Inspection: normal respiratory effort Auscultation: clear to auscultation bilaterally Cardio Rate: regular rate Rhythm: regular rhythm Heart sounds: S1 normal heart sound present and S2 normal heart sound present GI Other: The patient's abdomen is somewhat protuberant. Not obviously tender. Not focally tender. Rectal exam showed no obvious fecal impaction. There was no stool within reach of my finger. Rectal tone was actually quite good. Skin Other: Skin is dry and unremarkable Neuro Other: The patient is awake and alert. Mentation is normal. Cranial nerves are intact. Arm strength is symmetrical. Extrem Other: The patient's arms are unremarkable. The legs are wasted. Course Course Course Narrative: RME performed by Elizabeth Kumar PA-C. Patient is a 48 year old assigned male at presenting to the emergency department with abdominal pain. Detailed physical exam and review of systems are deferred to the tar pot man. Labs and swabs ordered. Patient placed back in the waiting room pending room availability and results. Medications Administered Discontinued Medications Generic Name Dose Route Start Last Admin Trade Name Freq PRN Reason Stop Dose Admin Lactulose 200 gm 09/15/23 23:03 09/16/23 00:30 Lactulose 320 Gm/480 Ml Solution AZ 09/15/23 23:04 Not Given ONCE ONE Lactulose 200 gm 09/16/23 00:15 09/16/23 00:26 Lactulose 20 Gm/30 Ml Solution AZ 09/16/23 00:16 200 gm ONCE ONE Administration Medical Decision Making Medical Decision Making MDM Narrative: The patient is a 48-year-old male who is a paraplegic. He has been paraplegic for about 8 months. He performs self catheterization. He has been having problems with constipation for a long time since developing paraplegia and is on docusate and lactulose. He comes in complaining of abdominal discomfort and no bowel movements for 3 weeks. KUB shows a significant stool burden. The patient was given a lactulose enema. He had copious bowel movements and felt much better. He felt well enough for discharge. The patient has an abnormal urinalysis. Since he performs self-catheterizations it is hard to determine the significance of this abnormal urinalysis. He has no particular urinary complaints. His white count and differential are unremarkable. Given the absence of fever in the absence of white count I think that it is just as likely that the patient has abnormal urinalysis is a result of his self catheterization rather than an infection. He will therefore be discharged without antibiotics. Lab Data 09/15/23 19:31 09/15/23 19:31 Labs: Lab Results 09/15/23 09/15/23 Range/Units 19:31 22:58 WBC 6.6 (4.8-10.8) X10*3/uL RBC 4.94 (4.60-5.80) X10*6/uL Hgb 14.0 (14.0-18.0) g/dl Hct 42.3 (42.0-52.0) % MCV 85.6 (80.0-98.0) fL MCH 28.3 (27.0-33.0) pg MCHC 33.1 (31.0-36.0) g/dl RDW 14.5 (11.0-16.0) % Plt Count 218 (160-400) X10*3/uL MPV 9.4 (9.4-12.4) fL Immature Gran % (Auto) 0.3 (0.0-0.4) % Neut % (Auto) 64.5 (45-73) % Lymph % (Auto) 23.3 (20-40) % [place] % (Auto) 8.7 (2-11) % Eos % (Auto) 2.6 (0-4) % Baso % (Auto) 0.6 (0-2) % Lymph # (Auto) 1.5 (1.2-4.9) X10*3/uL [place] # (Auto) 0.6 (0.1-1.2) X10*3/uL Eos # (Auto) 0.2 (0.0-0.4) X10*3/uL Baso # (Auto) 0.0 (0.0-0.2) X10*3/uL Abs Immat Gran (auto) 0.02 (0.00-0.03) X10*3/uL Absolute Neuts (auto) 4.2 (2.0-8.3) x10*3/uL Absolute Nucleated RBC 0.000 (0.0-0.012) X10*3/uL Nucleated RBC % (auto) 0.0 (0.0-0.2) /100WBC Sodium 141 (135-145) mmol/L Potassium 4.5 (3.3-5.1) mmol/L Chloride 103 (96-108) mmol/L Carbon Dioxide 32 H (22-29) mmol/L Anion Gap 11 L (12-20) BUN 11 (9-16) mg/dL Creatinine 0.91 (0.5-1.4) mg/dL Estim Creat Clear Calc 125.9 Estimated GFR > 60 Random Glucose 91 (60-115) mg/dL Calcium 9.6 (8.4-10.2) mg/dL Magnesium 2.5 (1.6-2.6) mg/dL Total Bilirubin 0.2 (0.0-1.0) mg/dL AST 28 (5-37) U/L ALT 29 (0-40) U/L Alkaline Phosphatase 140 H (39-117) U/L Total Protein 7.9 (6.5-8.0) g/dL Albumin 4.1 (3.5-5.0) g/dL Urine Color Yellow Urine Appearance Cloudy Urine pH 6.5 (5.0-9.0) Ur Specific [place] 1.020 (1.005-1.025) Urine Protein 30 (1+) H (Neg-Trace) mg/dL Urine Glucose (UA) Negative (Negative) mg/dL Urine Ketones Negative (Negative) mg/dL Urine Blood Small (1+) H (Negative) Urine Nitrite Negative (Negative) Ur Leukocyte Esterase Large (3+) H (Negative) Urine RBC 6-10 H (0-2) /HPF Urine WBC >50 H (0-5) /HPF Ur Squamous Epith Cells 0-2 (0-2) /HPF Urine Bacteria 4+ (None Seen) Hyaline Casts 0-2 (0-2) /LPF Influenza Type A (PCR) NEGATIVE (Negative) Influenza Type B (PCR) NEGATIVE (Negative) RSV RNA Qual (PCR) NEGATIVE (Negative) SARS-CoV-2 RNA (RT-PCR) NEGATIVE (Negative) Discharge Plan Discharge Clinical Impression: Constipation, Paraplegia Patient Disposition: Home, Self-Care Additional Instructions: Please continue your regular medications. Consider adding MiraLax to your regimen to keep your stool soft. You may use this in addition to the lactulose and docusate you were taking. Please follow-up soon with your regular doctor to discuss managing your bowels. It may be reasonable for you to see a vulcanized fiber unit operator. Return to the emergency room if worse Prescriptions: No Action (DME) hospital bed Kit See Rx Instructions .Route Qty: 1 0RF Rx Instructions: As directed ([facility]) [address] See Rx Instructions .Route .MEDSUPPLY Qty: 180 6RF Rx Instructions: Use every 4 hours (DME) home delivery of methadone per clinic dose See Rx Instructions .Route .MEDSUPPLY Qty: 1 0RF Rx Instructions: Start date: 03/30/2023 End date: 03/30/2024 docusate sodium 100 mg capsule 100 mg PO BID PRN (Reason: constipation) 30 Days Qty: 60 2RF baclofen 10 mg tablet 10 mg PO QID 30 Days Qty: 120 2RF bisacodyl 10 mg suppository 10 mg [place] QPM PRN (Reason: constipation) 50 Days Qty: 50 2RF acetaminophen 500 mg capsule 500 mg PO Q6H PRN (Reason: fever or pain) 30 Days Qty: 120 1RF Eliquis 5 mg tablet 5 mg PO BID 90 Days Qty: 180 1RF Hold Instructions: Doctor's Order (DME) adult diapers pull-ups Xl See Rx Instructions .Route .MEDSUPPLY Qty: 240 11RF Rx Instructions: As directed oxybutynin chloride 5 mg tablet 5 mg PO DAILY 90 Days Qty: 90 0RF cholecalciferol (vitamin D3) 25 mcg (1,000 unit) capsule 25 mcg PO DAILY 90 Days Qty: 90 0RF methadone 10 mg/mL concentrate 85 mg PO DAILY Rx Instructions: 55am 47pm hydroxyzine pamoate 25 mg capsule 25 mg PO BID PRN (Reason: anxiety) sennosides [senna] 8.6 mg tablet 17.2 mg PO DAILY 90 Days Qty: 180 1RF sertraline 25 mg tablet 25 mg PO BEDTIME 90 Days Qty: 90 1RF Thera M Plus (ferrous fumarat) 9 mg iron-400 mcg tablet 1 tab PO DAILY Qty: 90 3RF gabapentin 400 mg capsule 400 mg PO QID Qty: 120 0RF zolpidem 10 mg tablet 10 mg PO BEDTIME PRN (Reason: sleep) 30 Days Qty: 30 0RF Interventions: ED Discharge Assessment Last Done: 09/16/23 03:22 Discharge Date/Time: 09/16/23 03:23
[2023-09-15 19:35] LABS: MANUAL DIFF FLAG NO
[2023-09-15 19:38] LABS: Basophils Percent Auto 0.6 % (0-2); Eosinophils Absolute Auto 0.2 X10*3/uL (0.0-0.4); Eosinophils Percent Auto 2.6 % (0-4); Hematocrit 42.3 % (42.0-52.0); Imm Gran Abs Auto 0.02 X10*3/uL (0.00-0.03); Imm Gran Pct Auto 0.3 % (0.0-0.4); Lymphocytes Absolute Auto 1.5 X10*3/uL (1.2-4.9); Lymphocytes Percent Auto 23.3 % (20-40); Mean Corpuscular HGB Conc 33.1 g/dl (31.0-36.0); Mean Corpuscular Hemoglobin 28.3 pg (27.0-33.0); Mean Corpuscular Volume 85.6 fL (80.0-98.0); Mean Platelet Volume 9.4 fL (9.4-12.4); Monocytes Absolute Auto 0.6 X10*3/uL (0.1-1.2); Monocytes Percent Auto 8.7 % (2-11); Neutrophils Absolute Auto 4.2 x10*3/uL (2.0-8.3); Neutrophils Percent Auto 64.5 % (45-73); Platelet Count 218 X10*3/uL (160-400); Red Blood Count 4.94 X10*6/uL (4.60-5.80); Red Cell Distribution Width 14.5 % (11.0-16.0); White Blood Count 6.6 X10*3/uL (4.8-10.8)
[2023-09-15 19:57] LABS: Alanine Aminotransferase 29 U/L (0-40); Albumin Level 4.1 g/dL (3.5-5.0); Alkaline Phosphatase 140 U/L (39-117); Anion Gap 11 (12-20); Aspartate Amino Transferase 28 U/L (5-37); Bilirubin Total 0.2 mg/dL (0.0-1.0); Blood Urea Nitrogen 11 mg/dL (9-16); Calcium 9.6 mg/dL (8.4-10.2); Carbon Dioxide 32 mmol/L (22-29); Chloride 103 mmol/L (96-108); Creatinine Clr Calc Pharmacy 125.9; Estimated Glomerular Filt Rate > 60; Glucose Random 91 mg/dL (60-115); Magnesium 2.5 mg/dL (1.6-2.6); Potassium 4.5 mmol/L (3.3-5.1); Sodium 141 mmol/L (135-145); Total Protein 7.9 g/dL (6.5-8.0)
[2023-09-15 20:21] LABS: Influenza A PCR NEGATIVE (Negative); Influenza B PCR NEGATIVE (Negative); Resp Syncy Virus RNA Qual PCR NEGATIVE (Negative); SARS COV2 PCR INHOUSE NEGATIVE (Negative)
[2023-09-15 22:51] VITALS: BP 134/93; PULSE 63; RESP 16; TEMP 36.2; O2SAT 96
[2023-09-15 23:08] LABS: Appearance Urine Cloudy; Color Urine Yellow; Glucose Urine UA Negative (Negative); Leukocyte Esterase Urine Large (3+) (Negative); Nitrite Urine Negative (Negative); PH 6.5 (5.0-9.0); UMIC TRIGGER UACC YES; Urine Blood Small (1+) (Negative); Urine Ketones Negative (Negative); Urine Protein 30 (1+) mg/dL (Neg-Trace)
[2023-09-15 23:12] LABS: Bacteria Urine 4+ (None Seen); Hyaline Casts Urine 0-2 /LPF (0-2); Squamous Epithelial Cell Urine 0-2 /HPF (0-2); UACC Culture Trigger YES; WBC Urine >50 /HPF (0-5)
[2023-09-16] MEDS: Lactulose 20 GM/30 ML SOLUTION 200 GM PR (00:26)
--- NOTE | 2023-09-16 00:30 | PC.NURSE ---
Enema started using barium enema kit, no complications, pt tolerating well.
[2023-09-16 02:25] VITALS: BP 128/80; PULSE 63; RESP 16; TEMP 36.3; O2SAT 96
--- NOTE | 2023-09-16 03:00 | PC.NURSE ---
After enema D/C, pt had BM in commode and subsequently endorsing relief and desire to go home.
[2023-09-16 03:21] VITALS: BP 127/80; PULSE 68; RESP 16; O2SAT 97
== END 2023-09-16 03:23 | disposition home or self-care (01) ==
PROVIDERS: Physician Assistant Medical; Emergency Provider Emergency Medicine; PCP Internal Medicine
DX: K59.00 Constipation, unspecified (principal); G82.20 Paraplegia, unspecified; N39.0 Urinary tract infection, site not specified; B96.1 Klebsiella pneumoniae [K. pneumoniae] as the cause of diseases classified elsewhere; F11.20 Opioid dependence, uncomplicated; I10 Essential (primary) hypertension; Z11.52 Encounter for screening for COVID-19; Z20.828 Contact with and (suspected) exposure to other viral communicable diseases
CPT/HCPCS: 0241U; 51701; 51798; 74018; 80053; 81001; 83735; 85025; 87086; 87088; 87186; 99283; 99284

== ENCOUNTER → 2023-09-20 09:24 | Outpatient (BNVA) | payer OTHER, SELFPAY | PROVIDERS: PCP Internal Medicine; Visit Provider Anesthesiology | DX: I73.9 Peripheral vascular disease, unspecified (principal); M79.604 Pain in right leg; K59.03 Drug induced constipation; N31.9 Neuromuscular dysfunction of bladder, unspecified; R33.9 Retention of urine, unspecified; G82.20 Paraplegia, unspecified; F11.10 Opioid abuse, uncomplicated; T40.2X5A Adverse effect of other opioids, initial encounter | CPT/HCPCS: 99212 ==

== ENCOUNTER 2023-09-20 09:31 | Outpatient (AMB) | payer OTHER, SELFPAY ==
--- NOTE | 2023-09-20 09:34 | MHC.OFFVIS ---
Intake Vital Signs 09/20/23 09:52 BP 136/88 Blood Pressure Location Lt brachial Position Sitting Respiration 16 Pulse 89 Pulse Source Pulse Oximeter Pulse Oximetry (%) 97 Oxygen Delivery Method Room Air Intake Visit Reasons: 2 week follow up/confirm Intake Note: Patient comes in for 2 weeks follow up. Reports pain 04/18. Allergies No Known Allergies Allergy (Verified 09/20/23 14:31) HPI HPI Comments History of Present Illness Details Grey is 48 years old gentleman mostly Sami speaking with minimal understanding of Puerto Rican who is here in my office today to discuss pain in the lower back and pain in the right lower extremity as well as swelling and discoloration of the right lower extremity. He is a heroin addict who is currently on methadone maintenance therapy. He is currently on methadone therapy. He was operated in December of 2022 in [facility] neurosurgery, he received debulking of the tumor at T8 vertebra which burst outside of the vertebral body and compressing his spinal cord. Since then he is paraplegic and wheelchair bound. He is unable to take care of himself. He reports severe pain in the right hip radiating to the right lower leg. He is scheduled for an appointment with vascular surgery because on physical exam of his primary care physician his extremities were called and no pulses were detected. Unfortunately because of his history of heroin abuse recently I am afraid I can not offer him neuromodulation to treat his pain. However if vascular surgery will not offer him any procedures, I will be able to try sympathetic lumbar blockade is an attempt to help the pain in his back. [facility] Medical History (Updated 09/17/23 @ 00:00 by Nacho Garner) Pulmonary embolism Elevated blood pressure reading without diagnosis of hypertension Heroin use disorder, mild Keloid scar Right upper quadrant abdominal pain Heroin use disorder, mild, in sustained remission Methadone use Class 1 obesity with body mass index (BMI) of 33.0 to 33.9 in adult Right leg DVT Hypertension Surgical History S/P spinal surgery Keloid scar of skin Family History Father No problems noted. Mother No problems noted. Social History Housing: House Alcohol intake: former Patient Tobacco Use Status: Former Tobacco user Cigarettes Per Day: 2 e-Cigarette/Vaping Use: Never Used Second Hand Smoke Exposure: No Substance Use Type: Crack/Cocaine and Heroin service: No Current occupational status: unemployed and disabled Cognitive needs: Yes Hearing needs: No Vision needs: No Review of Systems Const All systems reviewed & are unremarkable except as noted in HPI and below Reports weakness Eyes Reports no additional complaints, Denies change in vision and Denies other visual disturbances Card Denies chest pain at rest, Denies chest pain with activity, Denies edema, Denies irregular heart rhythm, Denies claudication, Denies dyspnea, Denies dyspnea on exertion, Denies orthopnea, Denies paroxysmal nocturnal dyspnea and Denies slow heart rate Resp Denies cough, Denies dyspnea and Denies dyspnea on exertion GI Denies abdominal pain, Denies change in bowel habits, Denies excessive flatus, Denies nausea and Denies vomiting Denies urinary hesitancy, Denies urinary incontinence and Denies urinary urgency Musc Denies atrophy, Denies deformity and Denies limited range of motion Neuro Reports focal weakness, Reports Sensory deficit (Neuro) and Reports weakness Psych Reports abnormal sleep pattern and Reports depression Physical Exam Vital Signs: Last Vital Signs Pulse 89 09/20/23 09:52 Resp 16 09/20/23 09:52 BP 136/88 09/20/23 09:52 Pulse Ox 97 09/20/23 09:52 Oxygen Delivery Method Room Air 09/20/23 09:52 Const General: cooperative and acute distress mild Nutritional Appearance: obese morbidly obese Orientation/consciousness: patient oriented x3 Chest Other: On inspection of the posterior thoracic spine there is a scar approximately 10 cm long. The scar is very well-healed. Resp Effort & Inspection: normal respiratory effort, able to speak in complete sentences, normal respiratory pattern, no audible wheezes and no cough Cardio Jugular venous distension: no JVD GI Inspection: Yes distended Back/Spine/Pelvis Other: Wheelchair-bound, left lower extremity is paraplegic however he is able to move left lower extremity. Right lower extremities completely paralyzed. Unable to move the right lower extremity. He has significant edema of the right lower extremity, the red discoloration of the ankle and lower leg as well as right foot. There is no DP or PT pulses palpated. Neuro General: patient oriented x3 Sensory Exam: Sensory deficit (Neuro) Assessment & Plan Assessment & Plan (1) Peripheral vascular disease: Code(s): I73.9 - Peripheral vascular disease, unspecified (2) Right leg pain: Code(s): M79.604 - Pain in right leg (3) Constipation due to opioid therapy: Code(s): K59.03 - Drug induced constipation; T40.2X5A - Adverse effect of other opioids, initial encounter (4) Neurogenic bladder: Code(s): N31.9 - Neuromuscular dysfunction of bladder, unspecified (5) Urine retention: Code(s): R33.9 - Retention of urine, unspecified (6) Paraplegia: Code(s): G82.20 - Paraplegia, unspecified (7) Heroin use disorder, mild: Code(s): F11.10 - Opioid abuse, uncomplicated Plan By his primary care physician he was sent to the vascular surgeon for evaluation. He has an appointment with Dr. Lora on 20 of October. I will see him 2 weeks after he completes the appointment with Dr. Lora. We received information from [facility] with description of his condition. 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 If Dr. Lora will not offer him any procedures to help his pain I may attempt lumbar sympathetic nerve block in the attempt to alleviate his pain. With the history of recent heroin abuse I believe he will be a poor candidate for SCS or I DDD. l. Coding Level of Care Code Est Pt Level 3 (41943) Diagnoses Peripheral vascular disease I73.9 Right leg pain M79.604 Constipation due to opioid therapy K59.03; T40.2X5A Neurogenic bladder N31.9 Urine retention R33.9 Paraplegia G82.20 Heroin use disorder, mild F11.10
[2023-09-20 09:52] VITALS: BP 136/88; PULSE 89; RESP 16; O2SAT 97
== END 2023-09-20 10:36 | disposition home or self-care (01) ==
PROVIDERS: PCP Internal Medicine; Visit Provider Anesthesiology
DX: I73.9 Peripheral vascular disease, unspecified (principal); M79.604 Pain in right leg; K59.03 Drug induced constipation; T40.2X5A Adverse effect of other opioids, initial encounter; N31.9 Neuromuscular dysfunction of bladder, unspecified; R33.9 Retention of urine, unspecified; G82.20 Paraplegia, unspecified; F11.10 Opioid abuse, uncomplicated
CPT/HCPCS: 99213

== ENCOUNTER 2023-09-26 11:06 | Outpatient (AMB) | payer OTHER, SELFPAY ==
[2023-09-26 11:12] VITALS: BP 143/84; PULSE 78
--- NOTE | 2023-09-26 11:12 | A.OFFVIS_ITS ---
Intake Vital Signs 09/26/23 11:12 Weight 263 lb 14.293 oz BP 143/84 H Blood Pressure Location Rt brachial Position Sitting Pulse 78 Intake Visit Reasons: Keloid~ Chest Intake Note: Patient referred by PCP Dr. Andre Lucero for keloid scar on chest. Present for yrs. Was previously excised by Dr. Haney. Patient c/o: severe itch, burning sensation. Marker Maker Required: No Accompanied by: Iqra Garcia, Allergies No Known Allergies Allergy (Verified 09/26/23 11:14) HPI HPI Comments History of Present Illness Details Patient presents for evaluation of a right anterior mid chest keloid. He has had this excised in the past and at that time was told that it would probably recur, which it has. A presents here with his significant other. [facility] Medical History Pulmonary embolism Elevated blood pressure reading without diagnosis of hypertension Heroin use disorder, mild Keloid scar Right upper quadrant abdominal pain Heroin use disorder, mild, in sustained remission Methadone use Class 1 obesity with body mass index (BMI) of 33.0 to 33.9 in adult Right leg DVT Hypertension Surgical History S/P spinal surgery Keloid scar of skin Family History Father No problems noted. Mother No problems noted. Social History Housing: House Alcohol intake: former Patient Tobacco Use Status: Former Tobacco user Cigarettes Per Day: 2 e-Cigarette/Vaping Use: Never Used Second Hand Smoke Exposure: No Substance Use Type: Crack/Cocaine and Heroin service: No Current occupational status: unemployed and disabled Cognitive needs: Yes Hearing needs: No Vision needs: No Physical Exam Vital Signs: Last Vital Signs Pulse 78 09/26/23 11:12 BP 143/84 H 09/26/23 11:12 Chest Other: Patient has a mid upper chest transverse keloid measuring approximately 15 x 5 cm. He has a smaller 1 approximate 2 x 1 cm just above in central chest. Assessment & Plan Assessment & Plan (1) Keloid scar: Code(s): L91.0 - Hypertrophic scar Plan Explained to the patient that this process would recur and maybe even worse if it were reexcised again. Insert unfortunate situation but not 1 that is amenable to surgical intervention by me. We will see if we can find a local supervisor hardboard th at does Kenalog injections and make arrangements for this if possible. Coding Level of Care Code New Pt Level 4 (57768) Diagnoses Keloid scar L91.0
== END 2023-09-26 11:19 | disposition home or self-care (01) ==
PROVIDERS: PCP Internal Medicine; Referring Provider Internal Medicine; Visit Provider Surgery
DX: L91.0 Hypertrophic scar (principal)
CPT/HCPCS: 99204

== ENCOUNTER → 2023-09-26 11:06 | Outpatient (BNVA) | payer OTHER, SELFPAY | PROVIDERS: PCP Internal Medicine; Referring Provider Internal Medicine; Visit Provider Surgery | DX: L91.0 Hypertrophic scar (principal) | CPT/HCPCS: 99202 ==

== ENCOUNTER 2023-10-10 11:29 | Outpatient (AMB) | payer OTHER, SELFPAY ==
--- NOTE | 2023-10-10 11:37 | MHC.OFFVIS ---
Intake Intake Visit Reasons: [employer]IL [employer] Pain Management ref for PVD Intake Note: New patient presents for right leg pain. States he had back surgery in December of 2022 and has been paralyzed ever since. Says he has constant leg pain that but more in the right leg. Says the circulation in his legs are not good so he has pain , swelling and discoloration. 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 Issues began approximately a year ago where he presented to [facility] on 12/14/2022 with a history of bilateral lower extremity paresthesias and difficulty ambulating. She had T8 fracture with an epidural hematoma severe canal stenosis and cord edema. With Dr. David mijares from [facility] he underwent TA decompression. His hospital course was complicated by a teammate hemangioma to vertebral us body/soft tissue and ventral epidural space requiring laminectomy and extension and debulking. Unfortunately since that time he has been paraplegic and wheelchair-bound. He is been unable to take care of himself. Has severe right leg and hip pain. He has a history of heroin abuse. He had been seen by pain management. He has been sent over for vascular evaluation. Of note he smokes a few cigarettes daily. [facility] Medical History Pulmonary embolism Elevated blood pressure reading without diagnosis of hypertension Heroin use disorder, mild Keloid scar Right upper quadrant abdominal pain Heroin use disorder, mild, in sustained remission Methadone use Class 1 obesity with body mass index (BMI) of 33.0 to 33.9 in adult Right leg DVT Hypertension Surgical History S/P spinal surgery Keloid scar of skin Family History Father No problems noted. Mother No problems noted. Social History Housing: House Alcohol intake: former Patient Tobacco Use Status: Former Tobacco user Cigarettes Per Day: 2 e-Cigarette/Vaping Use: Never Used Second Hand Smoke Exposure: No Substance Use Type: Crack/Cocaine and Heroin service: No Current occupational status: unemployed and disabled Cognitive needs: Yes Hearing needs: No Vision needs: No Review of Systems Const All systems reviewed & are unremarkable except as noted in HPI and below Reports no additional complaints ENT Reports Normal hearing present Card Denies chest pain, Denies chest pain at rest, Denies chest pain with activity and Denies pedal edema Resp Denies cough GI Denies abdominal pain Musc Denies abnormal gait, Denies muscle cramps and Denies radiating pain into limb Skin/Breast Denies skin ulcer and Denies wounds Neuro Reports Normal hearing present and Denies abnormal gait Psych Reports no additional complaints Physical Exam Const Other: Wheelchair-bound General: cooperative and healthy appearing Orientation/consciousness: oriented to person, oriented to place and oriented to time HEENT Head: Yes normal to inspection Neck Neck: Yes normal visual inspection Carotids: no bruits Chest Chest palpation & inspection: normal inspection of the chest Resp Effort & Inspection: normal respiratory effort and able to speak in complete sentences Auscultation: clear to auscultation bilaterally, no crackles, no rales, no rhonchi and no wheezes Cardio Other: Bilateral DP signals Rate: regular rate Rhythm: regular rhythm Heart sounds: S1 normal heart sound present and S2 normal heart sound present Bruits: no carotid bruits GI Inspection: Yes normal to inspection Skin Wounds: no wounds Hair: normal Neuro General: oriented to person, oriented to place and oriented to time Cranial nerves: Yes CN's II-XII intact bilaterally and Yes Normal hearing present Cognition (Neuro): normal cognition Motor exam (neuro): 5/5 motor strength present throughout Extrem Other: venous exam: No significant superficial varicosities or spider telangiectasias, minimal edema General: No clubbing, No cyanosis and No edema Psych Appearance: grossly normal Mental Status: mental status grossly normal Speech and movement: Normal speech and movement present Assessment & Plan Assessment & Plan (1) Peripheral vascular disease: Code(s): I73.9 - Peripheral vascular disease, unspecified Plan: Unclear etiology of lower extremity pain. Unfortunately there is a significant neurogenic component to this due to his spine issues. I have taken the liberty of ordering arterial ultrasound to better evaluate this. Due to his overall status and wheelchair-bound state my intervention will be limited unless there is critical limb ischemia. If no intervention by us will be performed may be referred back to pain management to try a sympathetic lumbar blockade to help with the lower back pain. Once again we will get noninvasive testing and have him follow-up after. Thank you for allowing us to assist in his care. Orders: Orders US MERY complete 1 Week I73.9 - Peripheral vascular disease, unspecified Coding Level of Care Code New Pt Level 4 (37020) Diagnoses Peripheral vascular disease I73.9
== END 2023-10-10 11:53 | disposition home or self-care (01) ==
PROVIDERS: PCP Internal Medicine; Visit Provider Surgery Vascular Surgery
DX: I73.9 Peripheral vascular disease, unspecified (principal)
CPT/HCPCS: 99203

== ENCOUNTER → 2023-10-10 11:29 | Outpatient (BNVA) | payer OTHER, SELFPAY | PROVIDERS: PCP Internal Medicine; Visit Provider Surgery Vascular Surgery | DX: I73.9 Peripheral vascular disease, unspecified (principal) | CPT/HCPCS: 99202 ==

== ENCOUNTER 2023-10-25 08:53 | Outpatient (REF) | payer OTHER, SELFPAY ==
--- NOTE | ~2023-10-25 | US_ITS ---
EXAMINATION: NONINVASIVE ASSESSMENT OF THE ARTERIES OF BOTH LOWER EXTREMITIES WITH PVR EXAM AND BILATERAL LOWER EXTREMITY DUPLEX Nicole Sequeira MD CLINICAL INFORMATION: Peripheral vascular disease TECHNIQUE: Ankle pulse volume recordings, ankle pressure measurements and ankle brachial indices were obtained of the lower extremity arterial system bilaterally in addition to duplex Doppler techniques with wave form analysis and measurement of velocities in the common femoral, profunda femoral, superficial femoral, popliteal and tibial arteries. The study was performed only at rest. COMPARISON: None FINDINGS: a) AT REST: RIGHT LE. The right ankle-brachial index is: 1.07 * >0.97-1.25 = normal - no significant arterial disease * 0.75-0.96 = mild peripheral arterial disease * 0.5-0.74 = moderate peripheral arterial disease * <0.50 = severe peripheral arterial disease 2. Right ankle pressure: normal. 3. Right ankle PVR waveform: normal. 4. Right direct duplex Doppler findings: Common femoral artery: 117 cm/s, Multiphasic Profunda femoris artery: 68 cm/s, Multiphasic Superficial femoral artery (proximal): 90 cm/s, Multiphasic Superficial femoral artery (mid): 95 cm/s, Multiphasic Superficial femoral artery (distal): 86 cm/s, Multiphasic Proximal Popliteal artery: 55 cm/s, Multiphasic Mid posterior tibial artery: 100 cm/s, Multiphasic LEFT LE. The left ankle-brachial index is: 1.06 * >0.97-1.25 = normal - no significant arterial disease * 0.75-0.96 = mild peripheral arterial disease * 0.5-0.74 = moderate peripheral arterial disease * <0.50 = severe peripheral arterial disease 2. Left ankle pressure: normal. 3. Left ankle PVR waveform: normal. 4. Left direct duplex Doppler findings: Common femoral artery: 119 cm/s, Multiphasic Profunda femoris artery: 80 cm/s, Multiphasic Superficial femoral artery (proximal): 85 cm/s, Multiphasic Superficial femoral artery (mid): 92 cm/s, Multiphasic Superficial femoral artery (distal): 83 cm/s, Multiphasic Proximal Popliteal artery: 77 cm/s, Multiphasic Mid posterior tibial artery: 123 cm/s, Multiphasic US/US arterial duplex BI w/ MERY IMPRESSION: There is no evidence of any hemodynamically significant lower extremity arterial disease by pressure, waveform or duplex Doppler criteria at rest.
== END 2023-10-25 08:54 | disposition home or self-care (01) ==
LOC: HO.US 08:53
PROVIDERS: PCP Internal Medicine; Visit Provider Surgery Vascular Surgery
DX: I73.9 Peripheral vascular disease, unspecified (principal)
CPT/HCPCS: 93922; 93925

== ENCOUNTER 2023-12-14 12:51 | Outpatient (AMB) | payer OTHER, SELFPAY ==
--- NOTE | 2023-12-14 12:55 | A.OFFVIS_ITS ---
Vital Signs 12/14/23 13:09 Weight 263 lb BP 118/70 Blood Pressure Location Lt brachial Position Sitting Respiration 14 Pulse 70 Pulse Source Pulse Oximeter Pulse Oximetry (%) 97 Oxygen Delivery Method Room Air Intake Visit Reasons: FOLLOW UP AFTER VASCULAR APPOINTMENT Intake Note: Patient comes in for follow up appointment. Reports pain 04/18. Allergies No Known Allergies Allergy (Verified 12/14/23 13:09) HPI Comments Details: Grey is 48 years old gentleman mostly Chinese speaking with minimal understanding of Tajik who is here in my office today to discuss pain in the lower back and pain in the right lower extremity as well as swelling and discoloration of the right lower extremity. He is a heroin addict who is currently on methadone maintenance therapy. He is currently on methadone therapy. He was operated in December of 2022 in [facility] neurosurgery, he received debulking of the tumor at T8 vertebra which burst outside of the vertebral body and compressing his spinal cord. Since then he is paraplegic and wheelchair bound. He is unable to take care of himself. He reports severe pain in the right hip radiating to the right lower leg. He went for appointment with Dr. Lora, our vascular surgeon who recommended no intervention for his condition, because he is wheelchair-bound he would not need any intervention unless there is critical limb ischemia and a threat of the gangrene. He recommended to attempt to treat his pain with sympathetic blockade. I will s chedule him for lumbar sympathetic block on the right as soon as possible. He wants the procedure to be expedited, therefore we will schedule it without sedation . Unfortunately because of his history of heroin abuse recently I am afraid I can not offer him neuromodulation to treat his pain. [facility] Medical History Pulmonary embolism Elevated blood pressure reading without diagnosis of hypertension Heroin use disorder, mild Keloid scar Right upper quadrant abdominal pain Heroin use disorder, mild, in sustained remission Methadone use Class 1 obesity with body mass index (BMI) of 33.0 to 33.9 in adult Right leg DVT Hypertension Surgical History S/P spinal surgery Keloid scar of skin Family History Father No problems noted. Mother No problems noted. Social History Housing: House Alcohol intake: former Patient Tobacco Use Status: Former Tobacco user Cigarettes Per Day: 2 e-Cigarette/Vaping Use: Never Used Second Hand Smoke Exposure: No Substance Use Type: Crack/Cocaine and Heroin service: No Current occupational status: unemployed and disabled Cognitive needs: Yes Hearing needs: No Vision needs: No Review of Systems Const All systems reviewed & are unremarkable except as noted in HPI and below Neuro Reports Sensory deficit (Neuro) Physical Exam Vital Signs: Last Vital Signs Pulse 70 12/14/23 13:09 Resp 14 12/14/23 13:09 BP 118/70 12/14/23 13:09 Pulse Ox 97 12/14/23 13:09 Oxygen Delivery Method Room Air 12/14/23 13:09 Const General: cooperative and acute distress mild Nutritional Appearance: obese morbidly obese Orientation/consciousness: patient oriented x3 Chest Other: On inspection of the posterior thoracic spine there is a scar approximately 10 cm long. The scar is very well-healed. Resp Effort & Inspection: normal respiratory effort, able to speak in complete sentences, normal respiratory pattern, no audible wheezes and no cough Cardio Jugular venous distension: no JVD GI Inspection: Yes distended Back/Spine/Pelvis Other: Wheelchair-bound, left lower extremity is paraplegic however he is able to move left lower extremity. Right lower extremities completely paralyzed. Unable to move the right lower extremity. He has significant edema of the right lower extremity, the red discoloration of the ankle and lower leg as well as right foot. There is no DP or PT pulses palpated. Neuro General: patient oriented x3 Sensory Exam: Sensory deficit (Neuro) Assessment & Plan Assessment & Plan (1) Peripheral vascular disease: Code(s): I73.9 - Peripheral vascular disease, unspecified Category: Medical (2) Right leg pain: Code(s): M79.604 - Pain in right leg Category: Medical (3) Constipation due to opioid therapy: Code(s): K59.03 - Drug induced constipation; T40.2X5A - Adverse effect of other opioids, initial encounter Category: Medical (4) Neurogenic bladder: Code(s): N31.9 - Neuromuscular dysfunction of bladder, unspecified Category: Medical (5) Urine retention: Code(s): R33.9 - Retention of urine, unspecified Category: Medical (6) Paraplegia: Code(s): G82.20 - Paraplegia, unspecified Category: Medical (7) Heroin use disorder, mild: Code(s): F11.10 - Opioid abuse, uncomplicated Category: Medical Plan He was examined by Dr. Shah our vascular surgeon. Recommendations were to continue with pain management, only if critical ischemia will occur he will be a subject of the treatment with the vascular surgery intervention. Currently he is wheelchair-bound and unable to walk and therefore there is no indication for vascular procedures. I will schedule him for lumbar sympathetic blockade on the right. Next appointment will be scheduled after the sympathetic blockade as a follow- up.. Patient Instructions: Our medical office technician Stephanie Garcia was interpreting today this conversation in Chinese. Coding Level of Care Code Est Pt Level 3 (57683) Diagnoses Peripheral vascular disease I73.9 Right leg pain M79.604 Constipation due to opioid therapy K59.03; T40.2X5A Neurogenic bladder N31.9 Urine retention R33.9 Paraplegia G82.20 Heroin use disorder, mild F11.10
[2023-12-14 13:09] VITALS: BP 118/70; PULSE 70; RESP 14; O2SAT 97
== END 2023-12-14 13:28 | disposition home or self-care (01) ==
PROVIDERS: PCP Internal Medicine; Visit Provider Anesthesiology
DX: I73.9 Peripheral vascular disease, unspecified (principal); M79.604 Pain in right leg; K59.03 Drug induced constipation; T40.2X5A Adverse effect of other opioids, initial encounter; N31.9 Neuromuscular dysfunction of bladder, unspecified; R33.9 Retention of urine, unspecified; G82.20 Paraplegia, unspecified; F11.10 Opioid abuse, uncomplicated
CPT/HCPCS: 99213

== ENCOUNTER → 2023-12-14 12:51 | Outpatient (BNVA) | payer OTHER, SELFPAY | PROVIDERS: PCP Internal Medicine; Visit Provider Anesthesiology | DX: M79.604 Pain in right leg (principal); I73.9 Peripheral vascular disease, unspecified; K59.03 Drug induced constipation; N31.9 Neuromuscular dysfunction of bladder, unspecified; R33.9 Retention of urine, unspecified; G82.20 Paraplegia, unspecified; F11.10 Opioid abuse, uncomplicated | CPT/HCPCS: 99212 ==

== ENCOUNTER 2023-12-28 11:13 | Outpatient (AMB) | payer OTHER, SELFPAY ==
--- NOTE | 2023-12-28 11:14 | A.OFFPC_ITS ---
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 Accompanied by: Self / Same As Patient Allergies No Known Allergies Allergy (Verified 12/28/23 11:27) Medication List - Last Reconciled 12/28/23 by Cynthia Lucero MD acetaminophen 500 mg PO Q6H PRN 30 days [adult diapers pull-ups As directed] apixaban (Eliquis) 5 mg PO BID 90 days baclofen 10 mg PO QID 30 days bisacodyl 10 mg LA QPM PRN 50 days [cathteter straidght Use every 4 hours] cholecalciferol (vitamin D3) 25 mcg PO DAILY 90 days docusate sodium 100 mg PO BID PRN 30 days [electric scooter As directed] gabapentin 400 mg PO QID [home delivery of methadone per clinic dose Start date: 03/30/2023 End date: 03/30/2024] hospital bed As directed hydroxyzine pamoate 25 mg PO BID PRN methadone 85 mg PO DAILY njtzevwy-dvsx-ZF-calcium-mins 9 mg iron-400 mcg 1 tab PO DAILY oxybutynin chloride 5 mg PO DAILY 90 days sennosides (senna) 17.2 mg (2 x 8.6 mg) PO DAILY 90 days sertraline 25 mg PO BEDTIME 90 days Ventolin HFA 90 mcg/actuation (albuterol sulfate) 2 puffs inhalation Q6H PRN 30 days NS [wipes As directed] zolpidem 10 mg PO BEDTIME PRN 30 days Tobacco use date assessed: 09/05/23 Dental Screening Dental Screen Date: 09/05/23 HPI HPI Comments History of Present Illness Details This is a 48-year-old male with mild major depression, mild heroin use disorder in remission, paraplegia and constipation that comes today for follow- up on his conditions. Blood pressure stable. Last cholesterol was elevated but he does not require any statin. Depression well controlled with medications. On methadone clinic for his mild heroin use disorder. He has in a wheelchair due to paraplegia and is currently alone in the room. Constipation still present even with medications. [facility] Medical History (Updated 12/28/23 @ 11:46 by Cynthia Lucero MD) Pulmonary embolism Elevated blood pressure reading without diagnosis of hypertension Heroin use disorder, mild Right upper quadrant abdominal pain Heroin use disorder, mild, in sustained remission Methadone use Class 1 obesity with body mass index (BMI) of 33.0 to 33.9 in adult Right leg DVT Hypertension Surgical History Keloid scar S/P spinal surgery Keloid scar of skin Family History Father No problems noted. Mother No problems noted. Social History Housing: House Alcohol intake: former Patient Tobacco Use Status: Former Tobacco user Cigarettes Per Day: 2 e-Cigarette/Vaping Use: Never Used Second Hand Smoke Exposure: No Substance Use Type: Crack/Cocaine and Heroin service: No Current occupational status: unemployed and disabled Cognitive needs: Yes Hearing needs: No Vision needs: No Questionnaire Thrive Questionnaire Date Thrive assessed: 09/05/23 AUDIT C Alcohol Use Questionnaire (AUDIT-C) 1. How often do you have a drink containing alcohol?: Never Total Score: 0 HERSON-7 AMB Questionnaire HERSON-7 Date HERSON - 7 assessed: 12/28/23 Feeling nervous, anxious, or on edge: 3 = Nearly every day Not being able to stop or control worryin = Several days Worrying too much about different things: 3 = Nearly every day Trouble relaxin = Nearly every day Being so restless that it is hard to sit still: 1 = Several days Becoming easily annoyed or irritable: 0 = Not at all Feeling afraid as if something awful might happen: 0 = Not at all Total HERSON-7 score (0-4 normal; 5-9 mild; 10-14 moderate; 15-21 severe): 11 Source: Developed by Drs. Klaus Powell, Delia Grajeda, Jonah Reveles and colleagues, with an educational saman from [employer]. Review of Systems Const All systems reviewed & are unremarkable except as noted in HPI and below Card Denies chest pain at rest, Denies chest pain with activity, Denies edema, Denies irregular heart rhythm, Denies claudication, Denies dyspnea, Denies dyspnea on exertion, Denies orthopnea, Denies paroxysmal nocturnal dyspnea and Denies slow heart rate Resp Denies cough, Denies dyspnea and Denies dyspnea on exertion GI Reports constipation Musc Reports back pain, Reports arthralgias and Reports muscle weakness Physical exam (Primary Care) Vital Signs: Last Vital Signs BP 130/80 12/28/23 11:15 Tobacco/Smoking Status: Tobacco use Status Tobacco use date assessed 09/05/23 12/28/23 11:16 Patient Tobacco Use Status Former Tobacco user 12/28/23 11:16 e-Cigarette/Vaping Use Never Used 12/28/23 11:16 Thrive Assessment: Date of Thrive Assessment Date Thrive assessed 09/05/23 12/28/23 11:16 Const Limitations: wheelchair Resp Effort & Inspection: normal respiratory effort Auscultation: clear to auscultation bilaterally Cardio Jugular venous distension: no JVD Rate: regular rate Rhythm: regular rhythm Heart sounds: S1 normal heart sound present and S2 normal heart sound present GI Inspection: Yes normal to inspection Palpation (GI): Soft to palpation and nontender Assessment and Plan Assessment & Plan (1) Mild major depression: Code(s): F32.0 - Major depressive disorder, single episode, mild Plan: Continue SSRIs. (2) Paraplegia: Code(s): G82.20 - Paraplegia, unspecified Plan: Continue the use of a wheelchair. (3) Heroin use disorder, mild, in sustained remission: Code(s): F11.11 - Opioid abuse, in remission Plan: Follow-up with methadone clinic. (4) Constipation due to opioid therapy: Code(s): K59.03 - Drug induced constipation; T40.2X5A - Adverse effect of other opioids, initial encounter Plan: Continue docusate as needed for constipation. Continue high-fiber diet. Medications: New diclofenac sodium 1% (Aleve (diclofenac)) apply to single elbow, wrist or hand; for hand includes palm/fingers/back of hand 2 grams topical QID 100 grams 1RF 30 days Refilled acetaminophen 500 mg PO Q6H PRN 120 caps 6RF fever or pain 30 days Coding Level of Care Code Est Pt Level 4 (82961) Complex EM visit Add On G2211 Diagnoses Mild major depression F32.0 Paraplegia G82.20 Heroin use disorder, mild, in sustained remission F11.11 Constipation due to opioid therapy K59.03; T40.2X5A Time Spent (min) 22
[2023-12-28 11:15] VITALS: BP 130/80
== END 2023-12-28 11:40 | disposition home or self-care (01) ==
PROVIDERS: PCP Internal Medicine; Visit Provider Internal Medicine
DX: G82.20 Paraplegia, unspecified (principal); F32.0 Major depressive disorder, single episode, mild; F11.11 Opioid abuse, in remission; K59.03 Drug induced constipation; T40.2X5A Adverse effect of other opioids, initial encounter
CPT/HCPCS: 99214; G2211

== ENCOUNTER 2024-01-23 07:24 | Outpatient (REF) | payer OTHER, SELFPAY ==
--- NOTE | ~2024-01-23 | FL_ITS ---
EXAMINATION: XR FLUOROSCOPY WITH IMAGES CLINICAL INFORMATION: Right lumbar injection. COMPARISON: None available. TECHNIQUE: Fluoroscopy Supervised By: Dr. Michael Maddox. Fluoroscopy Time: 0.9 minutes. Cumulative Dose: 28.0 mGy. DAP: 0.400 mGym2. Images: 6. FINDINGS: Intraoperative fluoroscopy and spot films were performed during a procedure in the OR. A needle is present in the L2 region on the right just below the pedicle. Contrast media is injected and appears to be around a nerve root sheath. Precise levels on the image with contrast can not be ascertained secondary to marked coning of the images with lack of appropriate landmarks. Please correlate with Dr. Maddox's report for complete details. FL/FL guidance in treatment room IMPRESSION: Intraoperative fluoroscopy and spot films were obtained. Please see Dr. Maddox's report for complete details.
== END 2024-01-23 07:25 | disposition home or self-care (01) ==
LOC: CF 07:24
PROVIDERS: Visit Provider Anesthesiology
DX: M79.604 Pain in right leg (principal); I73.9 Peripheral vascular disease, unspecified; N31.9 Neuromuscular dysfunction of bladder, unspecified; R33.9 Retention of urine, unspecified; G82.20 Paraplegia, unspecified; K59.03 Drug induced constipation; T40.2X5A Adverse effect of other opioids, initial encounter; F11.10 Opioid abuse, uncomplicated
CPT/HCPCS: 64520; J1100; J2795; Q9967

== ENCOUNTER 2024-01-23 09:46 | Outpatient (AMB) | payer OTHER, SELFPAY ==
--- NOTE | 2024-01-23 10:18 | MHC.OFFVIS ---
Vital Signs 01/23/24 10:19 01/23/24 11:12 BP 128/74 131/78 Blood Pressure Location Lt brachial Lt brachial Position Sitting Sitting Respiration 14 14 Pulse 72 75 Pulse Source Pulse Oximeter Pulse Oximeter Pulse Oximetry (%) 95 94 Oxygen Delivery Method Room Air Room Air Comment pre-op post-op Intake Visit Reasons: Lumbar sympathetic block on right side Allergies No Known Allergies Allergy (Verified 01/23/24 10:19) [facility] Medical History (Updated 12/28/23 @ 11:46 by Cynthia Lucero MD) Pulmonary embolism Elevated blood pressure reading without diagnosis of hypertension Heroin use disorder, mild Right upper quadrant abdominal pain Heroin use disorder, mild, in sustained remission Methadone use Class 1 obesity with body mass index (BMI) of 33.0 to 33.9 in adult Right leg DVT Hypertension Surgical History Keloid scar S/P spinal surgery Keloid scar of skin Family History Father No problems noted. Mother No problems noted. Social History Housing: House Alcohol intake: former Patient Tobacco Use Status: Former Tobacco user Cigarettes Per Day: 2 e-Cigarette/Vaping Use: Never Used Second Hand Smoke Exposure: No Substance Use Type: Crack/Cocaine and Heroin service: No Current occupational status: unemployed and disabled Cognitive needs: Yes Hearing needs: No Vision needs: No Physical Exam Vital Signs: Last Vital Signs Pulse 75 01/23/24 11:12 Resp 14 01/23/24 11:12 BP 131/78 01/23/24 11:12 Pulse Ox 94 01/23/24 11:12 Oxygen Delivery Method Room Air 01/23/24 11:12 Assessment & Plan Assessment & Plan (1) Peripheral vascular disease: Code(s): I73.9 - Peripheral vascular disease, unspecified Category: Medical Plan: Grey is very pleasant 48 years old gentleman who came today in my office with complains on pain in the right lower extremity secondary to Complex regional pain syndrome of the right lower extremity at peripheral vascular disease. I offered in the past patient to receive lumbar sympathetic blockade. Today he came to my office to receive the procedure. L2-L3 right lumbar sympathetic blockade. Informed consent was explained thoroughly to the patient. All questions about benefits and risks for the procedure were answered. Patient came to the operating room and was positioned prone on the operating table with the pillow under the abdomen. Time out was performed delineating name and of the patient, allergies and the nature of the procedure. The lower backof the patient were prepped with ChloraPrep prepped and draped with sterile utility towels. C-arm was brought over the operating field and sq picture of patient's L2 and sequentially L3 vertebras were demonstrated on the screen. Tilting machine ipsilateral to the right 35 degrees from the midline the most extreme oblique image of the patient's lumbar spine was demonstrated on the screen at L2 and sequentially at L3 vertebra. 22 gauge 7 in needle was inserted through the skin and started to advance to anterior border of the L2 vertebral body. When needle gently contacted the bone the needle was rotated laterally and after that medially to take a direction curving the vertebral body of the patient. When on lateral view the tip of the needle was cleared 2 mm out of the anterior margin of the vertebral body injection of the contrast performed demonstrating spread of the contrast in the posterior retroperitoneal space. The injection of the contrast was performed life, no intravascular spread of the contrast, no intradiscal spread of the contrast and no spread of the contrast in the spinal canal were noted. After that injection medicine comprised of ropivacaine 0.5% and lidocaine 2% one-to-one mixed with Decadron was performed 1st at the L2 and sequentially after that at L3 vertebral body where the advancement of the needle was performed in similar fashion. Total dose of Decadron was 10 mg The patient tolerated the procedure well. He was taken outside of the operating room to recovery room where he recovered uneventfully. (2) Right leg pain: Code(s): M79.604 - Pain in right leg Category: Medical (3) Constipation due to opioid therapy: Code(s): K59.03 - Drug induced constipation; T40.2X5A - Adverse effect of other opioids, initial encounter Category: Medical (4) Neurogenic bladder: Code(s): N31.9 - Neuromuscular dysfunction of bladder, unspecified Category: Medical (5) Urine retention: Code(s): R33.9 - Retention of urine, unspecified Category: Medical (6) Paraplegia: Code(s): G82.20 - Paraplegia, unspecified Category: Medical (7) Heroin use disorder, mild: Code(s): F11.10 - Opioid abuse, uncomplicated Category: Medical Plan He was examined by Dr. Lora our vascular surgeon. Recommendations were to continue with pain management, only if critical ischemia will occur he will be a subject of the treatment with the vascular surgery intervention. Currently he is wheelchair-bound and unable to walk and therefore there is no indication for vascular procedures. I will schedule him for lumbar sympathetic blockade on the right. Next appointment will be scheduled after the sympathetic blockade as a follow-up.. Orders: Orders FL guidance in treatment room Today M79.604 - Pain in right leg Coding Level of Care Code Procedure Only Diagnoses Peripheral vascular disease I73.9 Right leg pain M79.604 Constipation due to opioid therapy K59.03; T40.2X5A Neurogenic bladder N31.9 Urine retention R33.9 Paraplegia G82.20 Heroin use disorder, mild F11.10
[2024-01-23 10:19] VITALS: BP 128/74; PULSE 72; RESP 14; O2SAT 95
[2024-01-23 11:12] VITALS: BP 131/78; PULSE 75; RESP 14; O2SAT 94
== END 2024-01-23 11:04 | disposition home or self-care (01) ==
LOC: HO.PMCPRC 09:46
PROVIDERS: PCP Internal Medicine; Visit Provider Anesthesiology
DX: M79.604 Pain in right leg (principal); I73.9 Peripheral vascular disease, unspecified; G82.20 Paraplegia, unspecified
CPT/HCPCS: 64520

== ENCOUNTER 2024-02-09 07:03 | Emergency (ER) | payer OTHER, SELFPAY ==
--- NOTE | ~2024-02-09 | CT_ITS ---
EXAMINATION: CT ABDOMEN AND PELVIS WITH CONTRAST CLINICAL INFORMATION: Abdominal pain, constipation. Personal history of paraplegia COMPARISON: CT scan of abdomen and pelvis on 04/26/2020 TECHNIQUE: Multidetector volumetric images were obtained from the superior aspect of the liver through the pubic symphysis following administration 85 mL of Omnipaque 350 intravenous contrast. Sagittal and coronal reformatted images were obtained on the technologist's workstation. Oral contrast: No This CT examination was performed using dose optimization techniques as appropriate, variously including the following: *Automated exposure control *Adjustment of mA and/or kV according to patient size (this includes techniques or standardized protocols for targeted exams where dose is matched to indication/reason for exam; i.e. extremities or head) *Use of iterative reconstruction technique DLP: 1018 mGy-cm FINDINGS: LUNG BASES: Patchy subpleural airspace disease is seen in right lower lobe posterior basal segment. LIVER: A tiny subcapsular simple cyst is seen at lateral border of right hepatic lobe segment 6 measuring 1 cm in diameter, mean attenuation of -7 Hounsfield units. GALLBLADDER AND BILIARY TREE: Gallbladder appears unremarkable without calcified stones. Common bile duct is not dilated. SPLEEN: The spleen is mildly enlarged, measuring 14.0 cm in AP length, without focal lesion. PANCREAS: The pancreas appears unremarkable. ADRENAL GLANDS: Adrenal glands are normal in size without focal lesion bilaterally. KIDNEYS: The right kidney is asymmetrically atrophic, measuring 8.2 cm in vertical length, with marked lobulation, diffuse thinning of renal cortex and moderate hydronephrosis without hydroureter. A hypoenhancing lesion is seen protruding from inferior right renal pole, measuring 2.5 cm in AP diameter, 2.3 cm in width, 2.6 cm in vertical height, mean attenuation of 40 Hounsfield units. The left kidney is normal in size, measuring 12.0 cm in vertical length, without focal lesion. Anterior left mid renal calculus is seen measuring 0.8 x 0.5 cm in size, mean attenuation of 410 Hounsfield units. BOWELS: There is mild fecal distention of the lower ascending colon and cecum. RETROPERITONEUM: No abnormally enlarged retroperitoneal lymph nodes, mass or hematoma could be seen. BLOOD VESSELS: Abdominal aorta is normal in size and smoothly patent. ABDOMINAL WALL: A tiny umbilical hernia containing mesenteric fat is seen. PERITONEUM: There was no ascites. There were no abdominal peritoneal inflammatory changes seen. No free peritoneal air was seen. No abnormally enlarged mesenteric lymph nodes are found. BONES: T9 vertebral body contains radiolucent lesion with [place] appearance. Bilateral lamina and spinous process are surgically absent. No fracture or dislocation. No focal bone lesion diagnostic of metastatic disease could be seen in the lumbar region. EXAMINATION: CT pelvis. FINDINGS: URINARY BLADDER: Urinary bladder fills normally with urine. BOWELS: There is no abnormal dilatation of the large and small bowel loops. Normal air-filled appendix is seen projecting posterior superior to the cecum. GENITAL ORGANS: Seminal vesicles are unremarkable. Prostate gland is normal. LYMPH NODES: No abnormally enlarged iliac or inguinal lymph nodes are seen. PERITONEUM: No inflammatory changes, ascites or free peritoneal air are found in the pelvis. Small bilateral inguinal hernias containing mesenteric fat, larger on the right side are seen. BONES: No fracture or dislocation. Tiny sclerotic bone island is seen in posterior left acetabulum, series 6 image #90. No focal bone lesion diagnostic of metastatic disease could be seen in the pelvis. CT/CT abdomen pelvis w IV con IMPRESSION: 1. Unchanged Asymmetrically atrophic right kidney with marked lobulation, diffuse thinning of renal cortex and moderate hydronephrosis without hydroureter, compatible with previous obstructive uropathy, possible ureteropelvic junction stenosis. 2. Interval development of the exophytic hypoenhancing lesion protruding from inferior right renal pole, compatible with complex cyst or renal cell carcinoma. Further evaluation with pre and postcontrast MRI of abdomen with renal mass protocol is recommended. 3. Unchanged Nonobstructing left renal calculus. 4. Unchanged Mild splenomegaly. 5. Unchanged lateral subcapsular right hepatic lobe segment 6 simple cyst. 6. Interval appearance of Small bilateral inguinal hernias containing mesenteric fat, larger on the right side. 7. Interval development of Patchy subpleural airspace disease in right lower lobe posterior basal segment, suggestive of pneumonia. 8. Persistent T9 vertebral hemangioma and interval performance of bilateral T9 laminectomies, resection of spinous process. 9. Unchanged tiny posterior left acetabular sclerotic bone island. Fleischner guidelines were followed.
[2024-02-09 07:08] VITALS: BP 140/95; PULSE 70; RESP 18; TEMP 36.3; O2SAT 96; BMI 35.9
--- NOTE | 2024-02-09 07:37 | ED_ITS ---
HPI - Male Genitourinary General Chief complaint: Urogenital-Male Stated complaint: kidney abd back pain Time Seen by Provider: 02/09/24 07:37 Source: patient Mode of arrival: wheelchair Limitations: physical limitation History of Present Illness ED Provider: ronald ROWLEY Narrative: Patient is a 48-year-old male with history of right sided paraplegia, PVD, chronic constipation due to opioid therapy, neurogenic bladder, HTN presenting to the emergency department with complaint of generalized abdominal pain, decreased urinary output, constipation, and multiple wounds to right lower leg and blood blister/discoloration to right foot. States that symptoms all began after receiving right sided lumbar sympathetic block from pain management on 01/22. When he does his urinary catheterization he describes muscle spasming and states he has to wait for the spasming to subside before the urine will drain. Has been using enemas without relief of constipation. Denies fevers. Denies nausea or vomiting. Reports that at baseline he has no sensation from right abdomen down through foot. Onset (ago): week(s) Location: abdomen (generalized) Severity: moderate Context: other Related Data Home Medications ?Medication ?Instructions ?Recorded ?Confirmed hydroxyzine pamoate 25 mg capsule 25 mg PO BID PRN anxiety 02/23/23 12/28/23 methadone 10 mg/mL oral concentrate 85 mg PO DAILY 09/05/23 12/28/23 Previous Rx's ?Medication ?Instructions ?Recorded hospital bed #1 ea 01/30/23 [facility] #180 ea 03/02/23 home delivery of methadone per #1 ea 03/30/23 clinic dose adult diapers pull-ups #240 ea 08/11/23 multivitamin-iron 9 mg-folic acid 1 tab PO DAILY #90 tabs 09/05/23 400 mcg-calcium and minerals tablet wipes #240 ea 09/16/23 electric scooter #1 ea 10/09/23 bisacodyl 10 mg rectal suppository 10 mg NE QPM PRN constipation 50 10/20/23 days #50 ea docusate sodium 100 mg capsule 100 mg PO BID PRN constipation 30 10/20/23 days #60 caps acetaminophen 500 mg capsule 500 mg PO Q6H PRN fever or pain 30 12/28/23 days #120 caps diclofenac sodium 1 % topical gel 2 g topical QID 30 days #100 grams 12/28/23 (Aleve (diclofenac)) apixaban 5 mg tablet (Eliquis) 5 mg PO BID 90 days #180 tabs 01/18/24 oxybutynin chloride 5 mg tablet 5 mg PO DAILY 90 days #90 tabs 01/18/24 zolpidem 10 mg tablet 10 mg PO BEDTIME PRN sleep 30 days 01/18/24 #30 tabs Ventolin HFA 90 mcg/actuation 2 puff inhalation Q6H PRN 02/03/24 aerosol inhaler (albuterol sulfate) shortness of breath or wheezing 30 days #18 grams baclofen 10 mg tablet 10 mg PO QID 30 days #120 tabs 02/03/24 cholecalciferol (vitamin D3) 25 25 mcg PO DAILY 90 days #90 caps 02/03/24 mcg (1,000 unit) capsule gabapentin 400 mg capsule 400 mg PO QID #120 caps 02/03/24 sennosides 8.6 mg tablet (senna) 17.2 mg (2 x 8.6 mg) PO DAILY 90 02/03/24 days #180 tabs sertraline 25 mg tablet 25 mg PO BEDTIME 90 days #90 tabs 02/03/24 cefuroxime axetil 500 mg tablet 500 mg PO BID #20 tabs 02/09/24 phenazopyridine 100 mg tablet 100 mg PO TID PRN pain 6 doses #6 02/09/24 tabs Allergies Allergy/AdvReac Type Severity Reaction Status Date / Time No Known Allergies Allergy Verified 02/09/24 07:12 Review of Systems 2 Review of Systems: As per HPI. Yes all other systems are reviewed and are negative Constitutional: Constitutional: Reports as per HPI [facility] Past Medical History Medical History (Updated 02/09/24 @ 12:56 by Augusta Howard NP) Pulmonary embolism Elevated blood pressure reading without diagnosis of hypertension Heroin use disorder, mild Right upper quadrant abdominal pain Heroin use disorder, mild, in sustained remission Methadone use Class 1 obesity with body mass index (BMI) of 33.0 to 33.9 in adult Right leg DVT Hypertension Surgical History Keloid scar S/P spinal surgery Keloid scar of skin Family History Family History Father No problems noted. Mother No problems noted. Social History Social History Housing: House Alcohol intake: former Patient Tobacco Use Status: Former Tobacco user Cigarettes Per Day: 2 e-Cigarette/Vaping Use: Never Used Second Hand Smoke Exposure: No Substance Use Type: Crack/Cocaine and Heroin Advance Directives: No Advance Directives Information Provided: No service: No Current occupational status: unemployed and disabled Cognitive needs: Yes Hearing needs: No Vision needs: No Physical Exam 2 Vital Signs: Vital Signs: Last Vital Signs Temp 97.4 F 02/09/24 07:08 Pulse 61 02/09/24 10:12 Resp 13 02/09/24 10:12 BP 131/77 02/09/24 10:12 Pulse Ox 94 02/09/24 10:12 O2 Del Method Room Air 02/09/24 10:12 BMI result Body Mass Index 35.9 Vital signs have been reviewed and appear to be correct. Blood pressure normal. Heart rate normal. Respiratory rate normal. Temperature normal. Oxygen saturation normal. Const: General: cooperative and no acute distress O rientation/consciousness: oriented to person, oriented to place, oriented to time and patient oriented x3 Limitations: no limitations HEENT: Head: Yes normocephalic and Yes atraumatic Ears: external ears normal General nose exam: Normal external nose present Face and sinus: Yes face symmetric Mouth: oropharynx normal and moist mucous membranes Throat: Yes uvula midline Eyes: Pupils: Equal, round and reactive pupils present Neck: Neck: Yes normal visual inspection and Yes supple Resp: Effort & Inspection: normal respiratory effort and able to speak in complete sentences Auscultation: clear to auscultation bilaterally Cardio: Rate: regular rate Rhythm: regular rhythm Heart sounds: S1 normal heart sound present and S2 normal heart sound present GI: Palpation (GI): Soft to palpation and nontender Auscultation: n ormoactive bowel sounds : General: Yes no CVA tenderness Back/Spine/Pelvis: Back: no CVA tenderness Skin: General skin exam: elasticity normal and turgor normal Neuro: General: oriented to person, oriented to place, oriented to time, patient oriented x3 and CN's II-XI intact bilaterally Cranial nerves: Yes Equal, round and reactive pupils present Cognition (Neuro): normal cognition Extrem: Other: General: Yes no pedal edema and Yes no calf tenderness Right lower extremity: lower leg (multiple wounds in varying stages of healing, see photos) and foot (see photo) Details: normal capillary refill; ROM of toes abnormal Psych: Mental Status: mental status grossly normal Affect: normal affect Thought process: Normal thought process present Medications Administered Discontinued Medications Generic Name Dose Route Start Last Admin Trade Name Meredith PRN Reason Stop Dose Admin Iohexol 100 ml 02/09/24 09:38 02/09/24 09:38 Iohexol 350 Mg/Ml 100 Ml Infus..Btl IV 02/09/24 09:39 85 ml ONCE ONE Administration Medical Decision Making Medical Decision Making [facility] Narrative: Patient is a 48-year-old male with history of right sided paraplegia, PVD, chronic constipation due to opioid therapy, neurogenic bladder, HTN presenting to the emergency department with complaint of generalized abdominal pain, decreased urinary output, constipation, and multiple wounds to right lower leg. On exam patient is awake, A+Ox3, VS WNL, afebrile, normal neurological exam without focal deficits, physical exam findings as above. Given reported symptoms and physical exam findings, initial differential includes UTI, pyelonephritis, constipation, obstruction, PVD wounds. No significant abdominal tenderness on exam but given impaired sensation will obtain CT. Labs notable for no leukocytosis,no anemia, no significant electrolyte abnormalities. CT notable for moderate right hydronephrosis without hydroureter, compatible with previous obstructive uropathy, possible ureteropelvic junction stenosis. It also notes exophytic hypoenhancing lesion protruding from inferior right renal pole, compatible with complex cyst or renal cell carcinoma. My interpretation is in agreement with the radiologist's interpretation. Case discussed with Dr. Bowie, urologist, who states that patient can follow up outpatient, hold off on Flomax at this time. UA shows 2+ leukocytes and >50WBCs, will treat for UTI. Results discussed with patient and all questions answered. Patient is comfortable with discharge home. Return precautions discussed. Patient verbalized understanding of and agreement with plan. Differential Diagnosis Differential Diagnoses: The differential diagnosis associated with the presentation includes As per MDM Admission/Observation Consideration of admission/observation: Escalation of care including admission/observation considered Patient would have been admitted to the hospital had their work up had any findings where hospital admission was appropriate and their clinical presentation warranted hospital admission. Consult Healthcare Provider Management of the patient was discussed with: Telephone Sales Representative (Dr. Bowie) Lab Data [facility] Lab Attestation statement: I reviewed the patient's lab results. As per [facility] 02/09/24 08:21 02/09/24 08:21 Labs: Lab Results 02/09/24 02/09/24 Range/Units 08:21 10:21 WBC 7.2 (4.8-10.8) X10*3/uL RBC 5.03 (4.60-5.80) X10*6/uL Hgb 14.3 (14.0-18.0) g/dl Hct 42.7 (42.0-52.0) % MCV 84.9 (80.0-98.0) fL MCH 28.4 (27.0-33.0) pg MCHC 33.5 (31.0-36.0) g/dl RDW 15.1 (11.0-16.0) % Plt Count 194 (160-400) X10*3/uL MPV 8.7 L (9.4-12.4) fL Immature Gran % (Auto) 0.6 H (0.0-0.4) % Neut % (Auto) 70.4 (45-73) % Lymph % (Auto) 18.4 L (20-40) % [place]ck[place] % (Auto) 8.8 (2-11) % Eos % (Auto) 1.2 (0-4) % Baso % (Auto) 0.6 (0-2) % Lymph # (Auto) 1.3 (1.2-4.9) X10*3/uL [place] # (Auto) 0.6 (0.1-1.2) X10*3/uL Eos # (Auto) 0.1 (0.0-0.4) X10*3/uL Baso # (Auto) 0.0 (0.0-0.2) X10*3/uL Abs Immat Gran (auto) 0.04 H (0.00-0.03) X10*3/uL Absolute Neuts (auto) 5.1 (2.0-8.3) x10*3/uL Absolute Nucleated RBC 0.000 (0.0-0.012) X10*3/uL Nucleated RBC % (auto) 0.0 (0.0-0.2) /100WBC ESR 20 H (0-15) MM/HR Sodium 140 (135-145) mmol/L Potassium 4.7 (3.3-5.1) mmol/L Chloride 103 (96-108) mmol/L Carbon Dioxide 30 H (22-29) mmol/L Anion Gap 12 (12-20) BUN 11 (9-16) mg/dL Creatinine 0.92 (0.5-1.4) mg/dL Estim Creat Clear Calc 122.7 Estimated GFR > 60 Random Glucose 93 (60-115) mg/dL Calcium 10.0 (8.4-10.2) mg/dL Total Bilirubin 0.3 (0.0-1.0) mg/dL AST 25 (5-37) U/L ALT 29 (0-40) U/L Alkaline Phosphatase 112 (39-117) U/L C-Reactive Protein 1.59 H (< or = 0.50) mg/dL Total Protein 7.9 (6.5-8.0) g/dL Albumin 4.1 (3.5-5.0) g/dL Urine Color Yellow Urine Appearance Cloudy Urine pH 6.0 (5.0-9.0) Ur Specific [place] >= 1.030 H (1.005-1.025) Urine Protein Negative (Neg-Trace) mg/dL Urine Glucose (UA) Negative (Negative) mg/dL Urine Ketones Negative (Negative) mg/dL Urine Blood Negative (Negative) Urine Nitrite Negative (Negative) Ur Leukocyte Esterase Moderate (2+) H (Negative) Urine RBC 0-2 (0-2) /HPF Urine WBC >50 H (0-5) /HPF Ur Squamous Epith Cells 0-2 (0-2) /HPF Urine Bacteria 4+ (None Seen) Hyaline Casts 0-2 (0-2) /LPF Independent Interpretation I performed an independent interpretation of an: CT Scan Interpretation: CT A/P moderate right hydronephrosis without hydroureter, compatible with previous obstructive uropathy, possible ureteropelvic junction stenosis. It also notes exophytic hypoenhancing lesion protruding from inferior right renal pole, compatible with complex cyst or renal cell carcinoma. Radiology Impression Discussion of test interpretation with radiology: I have reviewed the radiologist's reading. Radiologist Impression: CT/CT abdomen pelvis w IV con IMPRESSION: 1. Unchanged Asymmetrically atrophic right kidney with marked lobulation, diffuse thinning of renal cortex and moderate hydronephrosis without hydroureter, compatible with previous obstructive uropathy, possible ureteropelvic junction stenosis. 2. Interval development of the exophytic hypoenhancing lesion protruding from inferior right renal pole, compatible with complex cyst or renal cell carcinoma. Further evaluation with pre and postcontrast MRI of abdomen with renal mass protocol is recommended. 3. Unchanged Nonobstructing left renal calculus. 4. Unchanged Mild splenomegaly. 5. Unchanged lateral subcapsular right hepatic lobe segment 6 simple cyst. 6. Interval appearance of Small bilateral inguinal hernias containing mesenteric fat, larger on the right side. 7. Interval development of Patchy subpleural airspace disease in right lower lobe posterior basal segment, suggestive of pneumonia. 8. Persistent T9 vertebral hemangioma and interval performance of bilateral T9 laminectomies, resection of spinous process. 9. Unchanged tiny posterior left acetabular sclerotic bone island. External Record Review External record reviewed: Inpatient record, Office record and Outpatient record Prescription Management I considered prescription management with: Antibiotic Discharge Plan Discharge Clinical Impression: Urinary tract infection, Mass of right kidney Patient Disposition: Home, Self-Care Instructions: Urinary Tract Infection in Men (DC), Catheter-associated Urinary Tract Infection (ED) Additional Instructions: You were evaluated in the emergency department today for abdominal pain. Your urine showed evidence of infection and you are being treated with antibiotics. Please complete the full course as prescribed. Your CT scan showed a mass on your right kidney and you will need further evaluation of this. You are being referred to urology for follow up. CALL THEIR OFFICE TO SCHEDULE AN APPOINTMENT, THEY WILL NOT CALL YOU. Return to the emergency department if you develop worsening pain, do not have any urine when straight cathing yourself, develop fever, persistent vomiting, or any other concerning symptoms. Follow up with your primary care provider as well. Prescriptions: New cefuroxime axetil 500 mg tablet 500 mg PO BID Qty: 20 0RF phenazopyridine 100 mg tablet 100 mg PO TID PRN (Reason: pain) Qty: 6 0RF No Action (DME) hospital bed Kit See Rx Instructions .Route Qty: 1 0RF Rx Instructions: [facility] [place] See Rx Instructions .Route .MEDSUPPLY Qty: 180 6RF Rx Instructions: Use every 4 hours ([facility] home delivery of methadone per clinic dose See Rx Instructions .Route .MEDSUPPLY Qty: 1 0RF Rx Instructions: Start date: 03/30/2023 End date: 03/30/2024 (DME) adult diapers pull-ups Xl See Rx Instructions .Route .MEDSUPPLY Qty: 240 11RF Rx Instructions: As directed ([facility]) wipes See Rx Instructions .Route .MEDSUPPLY Qty: 240 11RF Rx Instructions: As directed ([facility] electric scooter See Rx Instructions .Route .MEDSUPPLY Qty: 1 0RF Rx Instructions: As directed docusate sodium 100 mg capsule 100 mg PO BID PRN (Reason: constipation) 30 Days Qty: 60 2RF bisacodyl 10 mg suppository 10 mg NE QPM PRN (Reason: constipation) 50 Days Qty: 50 2RF Eliquis 5 mg tablet 5 mg PO BID 90 Days Qty: 180 1RF Hold Instructions: Doctor's Order oxybutynin chloride 5 mg tablet 5 mg PO DAILY 90 Days Qty: 90 0RF zolpidem 10 mg tablet 10 mg PO BEDTIME PRN (Reason: sleep) 30 Days Qty: 30 0RF gabapentin 400 mg capsule 400 mg PO QID Qty: 120 0RF albuterol sulfate [Ventolin HFA] 90 mcg/actuation HFA aerosol inhaler 2 puff inhalation Q6H PRN (Reason: shortness of breath or wheezing) 30 Days Qty: 18 1RF cholecalciferol (vitamin D3) 25 mcg (1,000 unit) capsule 25 mcg PO DAILY 90 Days Qty: 90 0RF baclofen 10 mg tablet 10 mg PO QID 30 Days Qty: 120 2RF sennosides [senna] 8.6 mg tablet 17.2 mg PO DAILY 90 Days Qty: 180 1RF sertraline 25 mg tablet 25 mg PO BEDTIME 90 Days Qty: 90 1RF methadone 10 mg/mL concentrate 85 mg PO DAILY Rx Instructions: 55am 47pm hydroxyzine pamoate 25 mg capsule 25 mg PO BID PRN (Reason: anxiety) acetaminophen 500 mg capsule 500 mg PO Q6H PRN (Reason: fever or pain) 30 Days Qty: 120 6RF diclofenac sodium [Aleve (diclofenac)] 1 % gel 2 g topical QID 30 Days Qty: 100 1RF Rx Instructions: apply to single elbow, wrist or hand; for hand includes palm/fingers/back of hand Thera M Plus (ferrous fumarat) 9 mg iron-400 mcg tablet 1 tab PO DAILY Qty: 90 3RF Referrals: [facility] [Provider Group] Print Language: [place]
[2024-02-09 08:13] VITALS: BP 115/62; PULSE 61; RESP 18; O2SAT 96
[2024-02-09 08:24] LABS: MANUAL DIFF FLAG NO
[2024-02-09 08:26] LABS: Basophils Percent Auto 0.6 % (0-2); Eosinophils Absolute Auto 0.1 X10*3/uL (0.0-0.4); Eosinophils Percent Auto 1.2 % (0-4); Hematocrit 42.7 % (42.0-52.0); Hemoglobin 14.3 g/dl (14.0-18.0); Imm Gran Abs Auto 0.04 X10*3/uL (0.00-0.03); Imm Gran Pct Auto 0.6 % (0.0-0.4); Lymphocytes Absolute Auto 1.3 X10*3/uL (1.2-4.9); Lymphocytes Percent Auto 18.4 % (20-40); Mean Corpuscular HGB Conc 33.5 g/dl (31.0-36.0); Mean Corpuscular Hemoglobin 28.4 pg (27.0-33.0); Mean Corpuscular Volume 84.9 fL (80.0-98.0); Mean Platelet Volume 8.7 fL (9.4-12.4); Monocytes Absolute Auto 0.6 X10*3/uL (0.1-1.2); Monocytes Percent Auto 8.8 % (2-11); Neutrophils Absolute Auto 5.1 x10*3/uL (2.0-8.3); Neutrophils Percent Auto 70.4 % (45-73); Platelet Count 194 X10*3/uL (160-400); Red Blood Count 5.03 X10*6/uL (4.60-5.80); Red Cell Distribution Width 15.1 % (11.0-16.0); White Blood Count 7.2 X10*3/uL (4.8-10.8)
[2024-02-09 08:44] LABS: Alanine Aminotransferase 29 U/L (0-40); Albumin Level 4.1 g/dL (3.5-5.0); Alkaline Phosphatase 112 U/L (39-117); Anion Gap 12 (12-20); Aspartate Amino Transferase 25 U/L (5-37); Bilirubin Total 0.3 mg/dL (0.0-1.0); Blood Urea Nitrogen 11 mg/dL (9-16); Carbon Dioxide 30 mmol/L (22-29); Chloride 103 mmol/L (96-108); Creatinine Clr Calc Pharmacy 122.7; Estimated Glomerular Filt Rate > 60; Glucose Random 93 mg/dL (60-115); Potassium 4.7 mmol/L (3.3-5.1); Sodium 140 mmol/L (135-145); Total Protein 7.9 g/dL (6.5-8.0)
[2024-02-09] MEDS: iohexoL 350 MG/ML 100 ML INFUS..BTL IV (09:38)
[2024-02-09 10:09] LABS: C Reactive Protein 1.59 mg/dL (< or = 0.50)
[2024-02-09 10:12] VITALS: BP 131/77; PULSE 61; RESP 13; O2SAT 94
[2024-02-09 10:28] LABS: Appearance Urine Cloudy; Color Urine Yellow; Glucose Urine UA Negative (Negative); Leukocyte Esterase Urine Moderate (2+) (Negative); Nitrite Urine Negative (Negative); Specific Gravity - Urine >= 1.030 (1.005-1.025); UMIC TRIGGER UACC YES; Urine Blood Negative (Negative); Urine Ketones Negative (Negative); Urine Protein Negative (Neg-Trace)
[2024-02-09 10:30] LABS: Bacteria Urine 4+ (None Seen); Hyaline Casts Urine 0-2 /LPF (0-2); RBC Urine 0-2 /HPF (0-2); Squamous Epithelial Cell Urine 0-2 /HPF (0-2); UACC Culture Trigger YES; WBC Urine >50 /HPF (0-5)
[2024-02-09 10:46] LABS: Erythrocyte Sedimentation Rate 20 MM/HR (0-15)
[2024-02-09 13:38] VITALS: BP 135/79; PULSE 64; RESP 20; TEMP -17.7; TEMP 0; O2SAT 96
== END 2024-02-09 13:42 | disposition home or self-care (01) ==
PROVIDERS: Registered Nurse Emergency; Emergency Provider Student in an Organized Health Care Education/Training Program; PCP Internal Medicine
DX: N39.0 Urinary tract infection, site not specified (principal); B96.1 Klebsiella pneumoniae [K. pneumoniae] as the cause of diseases classified elsewhere; R10.84 Generalized abdominal pain; I10 Essential (primary) hypertension; F11.20 Opioid dependence, uncomplicated; Z86.711 Personal history of pulmonary embolism; Z86.718 Personal history of other venous thrombosis and embolism; Z87.891 Personal history of nicotine dependence
CPT/HCPCS: 36415; 51798; 74177; 80053; 81001; 85025; 85652; 86140; 87086; 87088; 87186; 99284; 99285; Q9967

== ENCOUNTER → 2024-03-19 10:32 | Outpatient (RCR) | payer OTHER, SELFPAY ==
--- NOTE | 2021-03-19 11:14 | P.CNHO_ITS ---
Subjective - Subjective Chief complaint: Right-sided abdominal and back pain Patient: new to practice Consult date: 03/19/21 Primary Care Provider: Cynthia Lucero MD Medical Summary: Diagnosis: Bilateral pulmonary emboli, right lower extremity DVT February 2021 Patient was admitted for acute hypoxic respiratory failure secondary to bilateral main pulmonary artery pulmonary embolism with RV strain. He was star ramya on heparin drip. He was seen by intensive care, did not meet criteria for tPA. Patient continued to require oxygen therapy. He was still desaturating into the low 80s on minimal exertion. He left against medical advise, he was prescribed Eliquis starter pack followed by 5 mg b.i.d.. HPI - Consult Narrative Reason for consult: DVT and pulmonary embolism Narrative: Grey Alexander is a 46 year old male who was diagnosed with rt DVT and b/l PE who has been referred for management of thromboembolism. Since discharge from the hospital he has been taking Eliquis without missing any doses. He denies any pleuritic chest pain or shortness of breath. He reports cough that is productive of occasional blood-tinged sputum. He denies leg pain or swelling. He does report pain in his right lower quadrant as well as his lower back on the right side. This is not associated with any change in bowel habits or urinary symptoms. No associated fever or chills. There is no radiation of the pain. He is finding it very difficult even to walk around because of the pain. He denies any nausea or emesis. When he coughs he does get occasional blood-tinged sputum. Review of Systems - Constitutional Denies anorexia, Denies body aches, Denies chills, Denies fatigue, Denies lack of energy, Reports malaise - Cardiovascular Denies no additional cardiovascular complaints - Respiratory Reports no additional respiratory complaints - Gastrointestinal Reports no additional gastrointestinal complaints, Reports abdominal pain, Denies black, tarry stools, Denies bloating, Denies change in bowel habits, Denies change in stools, Denies coffee ground vomit, Denies diarrhea, Denies loose stools - Genitourinary Genitourinary: Denies blood in urine, Denies difficulty urinating, Denies urinary urgency [facility] Medical History: Medical History (Last Updated 03/03/21 @ 14:08 by Cynthia Lucero MD) Class 1 obesity with body mass index (BMI) of 33.0 to 33.9 in adult Heroin use disorder, mild, in sustained remission Hypertension Methadone use Right leg DVT Surgical History: Surgical History (Last Updated 03/03/21 @ 13:17 by Cynthia Lucero MD) Keloid scar of skin Social History: Social History (Last Updated 03/19/21 @ 11:29 by Heather Sheehan) Living Situation History: Housing: House Alcohol History: Alcohol intake: former Alcohol History Details: Alcohol intake frequency: does not drink Tobacco History: Patient Tobacco Use Status: Never used Tobacco e-Cigarette/Vaping Use: Never Used Second Hand Smoke Exposure: No Substance Use History: Use of substances other than those prescribed or required for medical reasons : Yes Substance Use Type: Heroin Occupation Assessmet: service: No Current occupational status: employed Home Medications and Allergies Home Medications Medication Instructions Recorded Confirmed Type methadone 10 mg/mL oral concentrate 85 mg PO DAILY 02/11/21 03/19/21 History Allergies Allergy/AdvReac Type Severity Reaction Status Date / Time No Known Allergies Allergy Verified 03/19/21 11:29 Physical Exam Vital signs: Vital Signs Temp Pulse Resp BP Pulse Ox 03/19/21 11:25 97.7 F 80 16 123/73 97 Intake and Output 03/18/21 03/19/21 03/19/21 22:59 06:59 14:59 Other: Weight 103.7 kg [place] Weight in Grams [id number] Patient Weight 03/20/21 06:59 Weight 103.7 kg - Constitutional Present: no acute distress - Routine HEENT Exam Head: Present: normal inspection Eye: Present: EOMI, PERRL - Routine Neck Exam Present: supple. Absent: lymphadenopathy - Routine Cardiovascular Exam Cardiovascular: Present: RRR, S1, S2 - Routine Abdominal Exam Present: soft - Routine Extremities Exam Present: pulses intact. Absent: joint swelling, pedal edema - Routine Skin Exam Present: intact. Absent: cyanosis, erythema - Routine Neurological Exam Present: alert, oriented X3 Hem/Onc Consult Result - Labs CBC & Chem 7: 03/19/21 12:34 03/19/21 12:34 Assessment and Plan Patient Active problem list reviewed?: Yes (1) Pulmonary embolism Status: Acute Assessment and plan: 1. This is a 46-year-old male who was diagnosed with right lower extremity DVT and bilateral pulmonary emboli in February 2021. This occurred spontaneously without any history of trauma, surgery or immobilization. He is a IV heroin user but does not shoot up from his leg veins. He is not a smoker, there is no family history of thromboembolism. Underlying malignancy is a possibility. At this time concern is for his severe right lower quadrant and right back pain, unclear etiology. It appears not to be musculoskeletal in nature. I have ordered a CT abdomen/pelvis with contrast. He is on Eliquis 5 mg b.i.d.. He probably will require long-term anticoagulation. No role of thrombophilia testing at this time. Blood work today is normal except for mild hyperkalemia. D-dimer remains el evated although improved from previous. Further recommendations to be made after imaging study. I thank you very much for this consultation. - Time Spent With Patient Time Spent with Patient (in minutes): 30
[2021-03-19 11:25] VITALS: BP 123/73; PULSE 80; RESP 16; TEMP 36.5; O2SAT 97; BMI 33.7
[2021-03-19 13:09] LABS: Hemoglobin 14.3 g/dl (14.0-18.0); Mean Corpuscular HGB Conc 32.5 g/dl (31.0-36.0); Mean Platelet Volume 9.9 fL (9.4-12.4); Platelet Count 244 X10*3/uL (160-400); Red Cell Distribution Width 13.3 % (11.0-16.0); White Blood Count 6.5 X10*3/uL (4.8-10.8)
[2021-03-19 13:29] LABS: D Dimer 852 NG/ML
[2021-03-19 13:32] LABS: Alanine Aminotransferase 30 U/L (0-40); Albumin Level 4.4 g/dL (3.5-5.0); Alkaline Phosphatase 126 U/L (39-117); Anion Gap 11 (12-20); Aspartate Amino Transferase 28 U/L (5-37); Bilirubin Total 0.3 mg/dL (0.0-1.0); Blood Urea Nitrogen 8 mg/dL (9-16); Calcium 10.2 mg/dL (8.4-10.2); Carbon Dioxide 29 mmol/L (22-29); Chloride 105 mmol/L (96-108); Creatinine Clr Calc Pharmacy 108.6; Estimated Glomerular Filt Rate > 60; Glucose Random 75 mg/dL (60-115); Potassium 5.3 mmol/L (3.3-5.1); Sodium 140 mmol/L (135-145); Total Protein 7.7 g/dL (6.5-8.0)
--- NOTE | 2021-03-19 14:48 | MHC.HEMONCMA ---
Patient came in for a follow up, states that he is still in a lot of pain in his right flank/rib area. Clinical summary was reviewed and updated. Patient had labs and will return in 1 month for a follow up.
== END | disposition home or self-care (01) ==
LOC: HO.ONC 03-19 10:59
PROVIDERS: PCP Internal Medicine; Referring Provider Internal Medicine; Visit Provider Internal Medicine
DX: I26.99 Other pulmonary embolism without acute cor pulmonale (principal); I82.401 Acute embolism and thrombosis of unspecified deep veins of right lower extremity; R10.31 Right lower quadrant pain; M54.9 Dorsalgia, unspecified; F11.20 Opioid dependence, uncomplicated; Z79.01 Long term (current) use of anticoagulants
CPT/HCPCS: 36415; 80053; 85027; 85379; 99204

== ENCOUNTER 2024-04-24 18:15 | Emergency (ER) | payer OTHER, SELFPAY ==
--- NOTE | ~2024-04-24 | US_ITS ---
EXAMINATION: US TRIPLEX LOWER EXTREMITY, BILATERAL CLINICAL INFORMATION: Bilateral lower extremity edema and pain. COMPARISON: Venous ultrasound dated 08/23/2023. TECHNIQUE: Color-flow triplex imaging with spectral analysis and compression Doppler were performed on the bilateral lower extremities. FINDINGS: Respiratory variation, normal compression and augmented flow are noted throughout the bilateral lower extremities. The visualized common femoral vein, superficial femoral vein, profunda femoral vein, popliteal vein and midcalf posterior tibial venous segments show no evidence of deep venous thrombosis bilaterally. The bilateral peroneal veins are poorly visualized. There is no Cagle's cyst. US/US venous duplex LE BI IMPRESSION: No evidence of deep venous thrombosis involving the bilateral lower extremities. Electronically signed by: Lane Mccrary MD 04/24/2024 09:51 PM EDT
[2024-04-24 18:18] VITALS: BP 168/104; PULSE 101; O2SAT 99
[2024-04-24 18:20] VITALS: BP 166/88; PULSE 102; RESP 20; TEMP 37.2; O2SAT 97; BMI 39.5
--- NOTE | 2024-04-24 18:34 | ED.GENADULT ---
HPI - General Adult General Chief complaint: Extremity Injury, Lower Stated complaint: BiLat leg pain Time Seen by Provider: 04/24/24 18:23 History of Present Illness ED Provider: Cheryl ROWLEY narrative: Nvfxh[age][id number]-[id number]-old male with past medical history of substance abuse currently at [facility], lumbar stenosis/paraplegia status post spinal surgery presents for bilateral lower extremity swelling. Patient states he has been experiencing proximally 2-3 weeks of bilateral lower extremity swelling. Patient states that he has had decreased sensation to his right lower extremity since his spinal surgery last year and there has been no change in sensation however he has noticed pain to his left lower extremity. He denies fevers, chills, rash. Related Data Home Medications ?Medication ?Instructions ?Recorded ?Confirmed hydroxyzine pamoate 25 mg capsule 25 mg PO BID PRN anxiety 02/23/23 12/28/23 methadone 10 mg/mL oral concentrate 85 mg PO DAILY 09/05/23 12/28/23 Previous Rx's ?Medication ?Instructions ?Recorded hospital bed #1 ea 01/30/23 [facility] #180 ea 03/02/23 home delivery of methadone per #1 ea 03/30/23 clinic dose adult diapers pull-ups #240 ea 08/11/23 multivitamin-iron 9 mg-folic acid 1 tab PO DAILY #90 tabs 09/05/23 400 mcg-calcium and minerals tablet wipes #240 ea 09/16/23 electric scooter #1 ea 10/09/23 bisacodyl 10 mg rectal suppository 10 mg CO QPM PRN constipation 50 10/20/23 days #50 ea docusate sodium 100 mg capsule 100 mg PO BID PRN constipation 30 10/20/23 days #60 caps acetaminophen 500 mg capsule 500 mg PO Q6H PRN fever or pain 30 12/28/23 days #120 caps apixaban 5 mg tablet (Eliquis) 5 mg PO BID 90 days #180 tabs 01/18/24 Ventolin HFA 90 mcg/actuation 2 puff inhalation Q6H PRN 02/03/24 aerosol inhaler (albuterol sulfate) shortness of breath or wheezing 30 days #18 grams baclofen 10 mg tablet 10 mg PO QID 30 days #120 tabs 02/03/24 cholecalciferol (vitamin D3) 25 25 mcg PO DAILY 90 days #90 caps 02/03/24 mcg (1,000 unit) capsule gabapentin 400 mg capsule 400 mg PO QID #120 caps 02/03/24 sennosides 8.6 mg tablet (senna) 17.2 mg (2 x 8.6 mg) PO DAILY 90 02/03/24 days #180 tabs sertraline 25 mg tablet 25 mg PO BEDTIME 90 days #90 tabs 02/03/24 cefuroxime axetil 500 mg tablet 500 mg PO BID #20 tabs 02/09/24 phenazopyridine 100 mg tablet 100 mg PO TID PRN pain 6 doses #6 02/09/24 tabs diclofenac sodium 1 % topical gel 2 g topical QID 30 days #100 grams 03/06/24 (Aleve (diclofenac)) lactulose 10 gram/15 mL oral 10 g (15 mL) PO BEDTIME PRN 03/06/24 solution constipation 90 days #1,350 mL oxybutynin chloride 5 mg tablet 5 mg PO DAILY 90 days #90 tabs 03/06/24 zolpidem 10 mg tablet 10 mg PO BEDTIME PRN sleep 30 days 04/08/24 #30 tabs Allergies Allergy/AdvReac Type Severity Reaction Status Date / Time No Known Allergies Allergy Verified 04/24/24 18:30 Review of Systems Review of Systems: Patient endorses pain to left lower extremity and swelling to bilateral lower extremity Patient denies fevers, chills, chest pain, head pain, neck pain, shortness of breath, abdominal pain, nausea and vomiting, urinary symptoms Patient denies saddle anesthesia, urinary/stool retention/incontinence Yes all other systems are reviewed and are negative [facility] Past Medical History Medical History (Updated 04/24/24 @ 22:03 by Saqib Luna MD) Pulmonary embolism Elevated blood pressure reading without diagnosis of hypertension Heroin use disorder, mild Right upper quadrant abdominal pain Heroin use disorder, mild, in sustained remission Methadone use Class 1 obesity with body mass index (BMI) of 33.0 to 33.9 in adult Right leg DVT Hypertension Surgical History Keloid scar S/P spinal surgery Keloid scar of skin Family History Family History Father No problems noted. Mother No problems noted. Social History Social History Housing: House Alcohol intake: former Patient Tobacco Use Status: Former Tobacco user Cigarettes Per Day: 2 Smoked in Last 30 Days: No e-Cigarette/Vaping Use: Never Used Second Hand Smoke Exposure: No Use of substances other than those prescribed or required for medical reasons: No Substance Use Type: Crack/Cocaine and Heroin Advance Directives: No Advance Directives Information Provided: No Do you have a plan to hurt others: No Plan service: No Current occupational status: unemployed and disabled Cognitive needs: Yes Hearing needs: No Vision needs: No Physical Exam ED Vital Signs: Vital Signs - 24 hr 04/24/24 18:20 04/24/24 20:20 Temperature 99 F 98.6 F Pulse Rate 102 H 93 Respiratory Rate 20 14 Blood Pressure 166/88 H 142/93 H Pulse Oximetry 97 98 Oxygen Delivery Method Room Air Room Air BMI result Body Mass Index 39.5 Lungs clear to auscultation bilaterally; normal S1-S2 regular rate rhythm Abdomen is soft nontender nondistended Decreased sensation to distal right lower extremity with good DP pulse and strength Left lower extremity and foot tenderness to palpation with sensation and strength intact and good DP both 1+ bilateral lower extremity edema Walking with steady gait Medications Administered Discontinued Medications Generic Name Dose Route Start Last Admin Trade Name Aleksq PRN Reason Stop Dose Admin Acetaminophen 650 mg 04/24/24 21:03 04/24/24 21:46 Acetaminophen 325 Mg Tablet PO 04/24/24 21:04 650 mg ONCE ONE Administration Gabapentin 300 mg 04/24/24 21:04 04/24/24 21:46 Gabapentin 300 Mg Capsule PO 04/24/24 21:05 300 mg ONCE ONE Administration Ibuprofen 600 mg 04/24/24 21:03 04/24/24 21:46 Ibuprofen 600 Mg Tablet PO 04/24/24 21:04 600 mg ONCE ONE Administration Medical Decision Making Medical Decision Making MDM Narrative: This is a 49-year-old male with past medical history of substance abuse, spinal surgery presenting for lower extremity edema and pain. I am concerned for the following; fluid retention, DVT, electrolyte/metabolic disturbance - at this time there is no concern for stroke/CVA or cord compression given no new neuro deficits or red flag symptoms and patient has decreased sensation in right lower extremity has been present since his surgery - labs and imaging studies ordered - labs notable for stable H&H and no white count, electrolytes within normal limits, normal BNP - not appreciate DVT on patient's ultrasound and radiologist's interpretation is negative for clot - patient was given Tylenol and gabapentin for his back pain here in the emergency department - on reassessment patient reports improvement in symptoms - patient discharged with instructions to follow up with his PCP and return precautions Lab Data 04/24/24 19:25 04/24/24 19:25 Labs: Lab Results 04/24/24 Range/Units 19:25 WBC 6.3 (4.8-10.8) X10*3/uL RBC 4.83 (4.60-5.80) X10*6/uL Hgb 14.0 (14.0-18.0) g/dl Hct 41.5 L (42.0-52.0) % MCV 85.9 (80.0-98.0) fL MCH 29.0 (27.0-33.0) pg MCHC 33.7 (31.0-36.0) g/dl RDW 14.3 (11.0-16.0) % Plt Count 219 (160-400) X10*3/uL MPV 9.5 (9.4-12.4) fL Immature Gran % (Auto) 1.3 H (0.0-0.4) % Neut % (Auto) 58.3 (45-73) % Lymph % (Auto) 24.7 (20-40) % Frontier % (Auto) 12.5 H (2-11) % Eos % (Auto) 2.4 (0-4) % Baso % (Auto) 0.8 (0-2) % Lymph # (Auto) 1.6 (1.2-4.9) X10*3/uL Frontier # (Auto) 0.8 (0.1-1.2) X10*3/uL Eos # (Auto) 0.2 (0.0-0.4) X10*3/uL Baso # (Auto) 0.1 (0.0-0.2) X10*3/uL Abs Immat Gran (auto) 0.08 H (0.00-0.03) X10*3/uL Absolute Neuts (auto) 3.7 (2.0-8.3) x10*3/uL Absolute Nucleated RBC 0.000 (0.0-0.012) X10*3/uL Nucleated RBC % (auto) 0.0 (0.0-0.2) /100WBC Sodium 141 (135-145) mmol/L Potassium 4.1 (3.3-5.1) mmol/L Chloride 103 (96-108) mmol/L Carbon Dioxide 30 H (22-29) mmol/L Anion Gap 12 (12-20) BUN 10 (9-16) mg/dL Creatinine 0.99 (0.5-1.4) mg/dL Estim Creat Clear Calc 107.9 Estimated GFR > 60 Random Glucose 123 H (60-115) mg/dL Calcium 9.2 D (8.4-10.2) mg/dL Total Bilirubin 0.2 (0.0-1.0) mg/dL AST 36 (5-37) U/L ALT 50 H (0-40) U/L Alkaline Phosphatase 129 H (39-117) U/L B-Natriuretic Peptide < 10 (<100) pg/mL Total Protein 7.1 (6.5-8.0) g/dL Albumin 4.1 (3.5-5.0) g/dL Urine Color Yellow Urine Appearance Clear Urine pH 6.5 (5.0-9.0) Ur Specific [place] 1.015 (1.005-1.025) Urine Protein Negative (Neg-Trace) mg/dL Urine Glucose (UA) Negative (Negative) mg/dL Urine Ketones Negative (Negative) mg/dL Urine Blood Negative (Negative) Urine Nitrite Negative (Negative) Ur Leukocyte Esterase Negative (Negative) Discharge Plan Discharge Clinical Impression: Lower leg pain Patient Disposition: Home, Self-Care Additional Instructions: Please return to the emergency department if you develop any new or worsening symptoms Please follow up with your primary care provider when able Prescriptions: No Action (DME) hospital bed Kit See Rx Instructions .Route Qty: 1 0RF Rx Instructions: As directed ([facility]) [address] See Rx Instructions .Route .MEDSUPPLY Qty: 180 6RF Rx Instructions: Use every 4 hours (DME) home delivery of methadone per clinic dose See Rx Instructions .Route .MEDSUPPLY Qty: 1 0RF Rx Instructions: Start date: 03/30/2023 End date: 03/30/2024 (DME) adult diapers pull-ups Xl See Rx Instructions .Route .MEDSUPPLY Qty: 240 11RF Rx Instructions: As directed (DME) wipes See Rx Instructions .Route .MEDSUPPLY Qty: 240 11RF Rx Instructions: As directed (DME) electric scooter See Rx Instructions .Route .MEDSUPPLY Qty: 1 0RF Rx Instructions: As directed docusate sodium 100 mg capsule 100 mg PO BID PRN (Reason: constipation) 30 Days Qty: 60 2RF bisacodyl 10 mg suppository 10 mg CO QPM PRN (Reason: constipation) 50 Days Qty: 50 2RF Eliquis 5 mg tablet 5 mg PO BID 90 Days Qty: 180 1RF gabapentin 400 mg capsule 400 mg PO QID Qty: 120 0RF albuterol sulfate [Ventolin HFA] 90 mcg/actuation HFA aerosol inhaler 2 puff inhalation Q6H PRN (Reason: shortness of breath or wheezing) 30 Days Qty: 18 1RF cholecalciferol (vitamin D3) 25 mcg (1,000 unit) capsule 25 mcg PO DAILY 90 Days Qty: 90 0RF baclofen 10 mg tablet 10 mg PO QID 30 Days Qty: 120 2RF sennosides [senna] 8.6 mg tablet 17.2 mg PO DAILY 90 Days Qty: 180 1RF sertraline 25 mg tablet 25 mg PO BEDTIME 90 Days Qty: 90 1RF oxybutynin chloride 5 mg tablet 5 mg PO DAILY 90 Days Qty: 90 0RF diclofenac sodium [Aleve (diclofenac)] 1 % gel 2 g topical QID 30 Days Qty: 100 1RF Rx Instructions: apply to single elbow, wrist or hand; for hand includes palm/fingers/back of hand lactulose 10 gram/15 mL solution 10 g PO BEDTIME PRN (Reason: constipation) 90 Days Qty: 1350 4RF zolpidem 10 mg tablet 10 mg PO BEDTIME PRN (Reason: sleep) 30 Days Qty: 30 0RF methadone 10 mg/mL concentrate 85 mg PO DAILY Rx Instructions: 55am 47pm cefuroxime axetil 500 mg tablet 500 mg PO BID Qty: 20 0RF phenazopyridine 100 mg tablet 100 mg PO TID PRN (Reason: pain) Qty: 6 0RF hydroxyzine pamoate 25 mg capsule 25 mg PO BID PRN (Reason: anxiety) acetaminophen 500 mg capsule 500 mg PO Q6H PRN (Reason: fever or pain) 30 Days Qty: 120 6RF Thera M Plus (ferrous fumarat) 9 mg iron-400 mcg tablet 1 tab PO DAILY Qty: 90 3RF Print Language: Vietnamese
[2024-04-24 19:29] LABS: MANUAL DIFF FLAG NO
[2024-04-24 19:37] LABS: Appearance Urine Clear; Basophils Absolute Auto 0.1 X10*3/uL (0.0-0.2); Basophils Percent Auto 0.8 % (0-2); Color Urine Yellow; Eosinophils Absolute Auto 0.2 X10*3/uL (0.0-0.4); Eosinophils Percent Auto 2.4 % (0-4); Glucose Urine UA Negative (Negative); Hematocrit 41.5 % (42.0-52.0); Imm Gran Abs Auto 0.08 X10*3/uL (0.00-0.03); Imm Gran Pct Auto 1.3 % (0.0-0.4); Leukocyte Esterase Urine Negative (Negative); Lymphocytes Absolute Auto 1.6 X10*3/uL (1.2-4.9); Lymphocytes Percent Auto 24.7 % (20-40); Mean Corpuscular HGB Conc 33.7 g/dl (31.0-36.0); Mean Corpuscular Volume 85.9 fL (80.0-98.0); Mean Platelet Volume 9.5 fL (9.4-12.4); Monocytes Absolute Auto 0.8 X10*3/uL (0.1-1.2); Monocytes Percent Auto 12.5 % (2-11); Neutrophils Absolute Auto 3.7 x10*3/uL (2.0-8.3); Neutrophils Percent Auto 58.3 % (45-73); Nitrite Urine Negative (Negative); PH 6.5 (5.0-9.0); Platelet Count 219 X10*3/uL (160-400); Red Blood Count 4.83 X10*6/uL (4.60-5.80); Red Cell Distribution Width 14.3 % (11.0-16.0); Specific Gravity - Urine 1.015 (1.005-1.025); Urine Blood Negative (Negative); Urine Ketones Negative (Negative); Urine Protein Negative (Neg-Trace); White Blood Count 6.3 X10*3/uL (4.8-10.8)
[2024-04-24 19:47] LABS: Alanine Aminotransferase 50 U/L (0-40); Albumin Level 4.1 g/dL (3.5-5.0); Alkaline Phosphatase 129 U/L (39-117); Anion Gap 12 (12-20); Aspartate Amino Transferase 36 U/L (5-37); Bilirubin Total 0.2 mg/dL (0.0-1.0); Blood Urea Nitrogen 10 mg/dL (9-16); Calcium 9.2 mg/dL (8.4-10.2); Carbon Dioxide 30 mmol/L (22-29); Chloride 103 mmol/L (96-108); Creatinine Clr Calc Pharmacy 107.9; Estimated Glomerular Filt Rate > 60; Glucose Random 123 mg/dL (60-115); Potassium 4.1 mmol/L (3.3-5.1); Sodium 141 mmol/L (135-145); Total Protein 7.1 g/dL (6.5-8.0)
[2024-04-24 20:20] VITALS: BP 142/93; PULSE 93; RESP 14; TEMP 37; O2SAT 98
--- NOTE | 2024-04-24 21:20 | PC.NURSE ---
pt requesting to speak w/ MD at this time as he states that he wants to be discharged/get ambulance back to [facility]. pt refusing medication administration. MD bedside speaking w/ pt at this time.
[2024-04-24] MEDS: Gabapentin 300 MG CAPSULE PO (21:46)
[2024-04-24] MEDS: Acetaminophen 325 MG TABLET 650 MG PO (21:46)
[2024-04-24] MEDS: Ibuprofen 600 MG TABLET PO (21:46)
--- NOTE | 2024-04-24 21:46 | PC.NURSE ---
pt medicated per provider order. effectiveness pending.
[2024-04-24 22:27] LABS: B Type Natriuretic Peptide < 10 pg/mL (<100)
[2024-04-24 23:40] VITALS: BP 138/89; PULSE 90; RESP 16; TEMP 37.1; O2SAT 99
== END 2024-04-25 00:36 | disposition home or self-care (01) ==
PROVIDERS: Emergency Provider Student in an Organized Health Care Education/Training Program
DX: M79.604 Pain in right leg (principal); M79.605 Pain in left leg; R60.0 Localized edema
CPT/HCPCS: 36415; 80053; 81003; 83880; 85025; 93970; 99284

== ENCOUNTER 2024-05-23 10:33 | Outpatient (AMB) | payer OTHER, SELFPAY ==
--- NOTE | 2024-05-23 10:43 | MHC.PC.OV ---
Vital Signs 05/23/24 10:44 Height 5 ft 6 in BMI Reason not done Patient refused/unable BP 122/74 Blood Pressure Location Lt brachial Position Sitting Intake Visit Reasons: 4mth f/u Intake Note: Patient here for a 4 month follow up Director Of Annual Giving Required: No Accompanied by: Self / Same As Patient Allergies No Known Allergies Allergy (Verified 05/23/24 10:51) Medication List - Last Reconciled 05/23/24 by Cynthia Lucero MD acetaminophen 500 mg PO Q6H PRN 30 days [adult diapers pull-ups As directed] apixaban (Eliquis) 5 mg PO BID 90 days baclofen 10 mg PO QID 30 days bisacodyl 10 mg [place] QPM PRN 50 days [cathteter straidght Use every 4 hours] cefuroxime axetil 500 mg PO BID cholecalciferol (vitamin D3) 25 mcg PO DAILY 90 days diclofenac sodium 1% (Aleve (diclofenac)) 2 grams topical QID 30 days docusate sodium 100 mg PO BID PRN 30 days [electric scooter As directed] gabapentin 400 mg PO QID [home delivery of methadone per clinic dose Start date: 03/30/2023 End date: 03/30/2024] hospital bed As directed hydroxyzine pamoate 25 mg PO BID PRN lactulose 10 grams (15 mL) PO BEDTIME PRN 90 days methadone 85 mg PO DAILY [id number]-mins 9 mg iron-400 mcg 1 tab PO DAILY oxybutynin chloride 5 mg PO DAILY 90 days phenazopyridine 100 mg PO TID PRN 6 doses sennosides (senna) 17.2 mg (2 x 8.6 mg) PO DAILY 90 days sertraline 25 mg PO BEDTIME 90 days Ventolin HFA 90 mcg/actuation (albuterol sulfate) 2 puffs inhalation Q6H PRN 30 days NS [wipes As directed] zolpidem 10 mg PO BEDTIME PRN 30 days Tobacco use date assessed: 09/05/23 Dental Screening Dental Screen Date: 05/23/24 Did you have a dental visit in the last 12 months?: Yes Did you have a dental problem in the last 6 months where you did not have access to dental care?: No Was dental information given to patient?: Patient has dentist HPI HPI Comments History of Present Illness Details This is a 49-year-old male with paraplegia, peripheral vascular disease, mild major depression and mild heroin use disorder in sustained remission that comes today complaining of few panic attacks that has started recently. He has a Psychiatry from [place] that follows with him with telehealth visits but does not understand his accent and wants to change psychiatrist. He is paraplegic and use a wheelchair to move. Peripheral vascular disease has been follow by vascular surgery. Depression follow by Psychiatry but I will refer him to another psychiatrist. On methadone for his heroin use disorder which has been decreasing in dosage. [facility] Medical History (Updated 05/23/24 @ 10:58 by Cynthia Lucero MD) Pulmonary embolism Elevated blood pressure reading without diagnosis of hypertension Heroin use disorder, mild Right upper quadrant abdominal pain Heroin use disorder, mild, in sustained remission Methadone use Class 1 obesity with body mass index (BMI) of 33.0 to 33.9 in adult Right leg DVT Hypertension Surgical History Keloid scar S/P spinal surgery Keloid scar of skin Family History Father No problems noted. Mother No problems noted. Social History Housing: House Alcohol intake: former Patient Tobacco Use Status: Former Tobacco user Cigarettes Per Day: 2 e-Cigarette/Vaping Use: Never Used Second Hand Smoke Exposure: No Substance Use Type: Crack/Cocaine and Heroin service: No Current occupational status: unemployed and disabled Cognitive needs: Yes Hearing needs: No Vision needs: No Questionnaire Thrive Questionnaire Date Thrive assessed: 09/05/23 HERSON-7 AMB Questionnaire HERSON-7 Date HERSON - 7 assessed: 12/28/23 Source: Developed by Drs. Klaus Powell, Delia Grajeda, Jonah Reveles and colleagues, with an educational saman from [employer]. Review of Systems Const All systems reviewed & are unremarkable except as noted in HPI and below Card Denies chest pain at rest, Denies chest pain with activity, Denies edema, Denies irregular heart rhythm, Denies claudication, Denies dyspnea, Denies dyspnea on exertion, Denies orthopnea, Denies paroxysmal nocturnal dyspnea and Denies slow heart rate Resp Denies cough, Denies dyspnea and Denies dyspnea on exertion GI Denies abdominal pain, Denies change in bowel habits, Denies excessive flatus, Denies nausea and Denies vomiting Physical exam (Primary Care) Vital Signs: Last Vital Signs BP 122/74 05/23/24 10:44 Tobacco/Smoking Status: Tobacco use Status Tobacco use date assessed 09/05/23 05/23/24 10:44 Patient Tobacco Use Status Former Tobacco user 05/23/24 10:44 e-Cigarette/Vaping Use Never Used 05/23/24 10:44 Thrive Assessment: Date of Thrive Assessment Date Thrive assessed 09/05/23 05/23/24 10:44 Const Limitations: wheelchair Resp Effort & Inspection: normal respiratory effort Auscultation: clear to auscultation bilaterally Cardio Jugular venous distension: no JVD Rate: regular rate Rhythm: regular rhythm Heart sounds: S1 normal heart sound present and S2 normal heart sound present Office Procedures Flu Questionnaire Does the patient have a severe egg allergy?: No Does the patient have severe life threatening allergies?: No Does the patient have a fever or illness today?: No Has the patient ever had Guillain-Stopover Syndrome?: No Has the patient ever had any past reaction to a flu shot?: No Immunizations Fluarix Triv [id number] (PF) 45 mcg (15 mcg x 3)/0.5 mL IM syringe Performing Provider: Cynthia Lucero MD Performing [facility] [place] Administered by: MIL Oakley on 05/23/24 11:06 Dose Route Admin Location Dispensed Lot Number Expiration Date [facility] Customer Agent 0.5 mL IM Left Deltoid 0.5 mL [id number] 01/06/25 [id number] [employer] VIS Given Date VIS Provided VIS Publication Date 05/23/24 Single Vaccine 21 Eligibility Eligibility Date Funding Source Not [facility] Eligible 05/23/24 Private Coding Level of Care Code Est Pt Level 4 (69390) Complex EM visit Add On G2211 Diagnoses Mild major depression F32.0 Peripheral vascular disease I73.9 Panic attacks F41.0 Heroin use disorder, mild, in sustained remission F11.11 Paraplegia G82.20 Time Spent (min) 20 Assessment & Plan Assessment & Plan (1) Mild major depression: Code(s): F32.0 - Major depressive disorder, single episode, mild Category: Medical Plan: Follow-up with psychiatry. (2) Peripheral vascular disease: Code(s): I73.9 - Peripheral vascular disease, unspecified Category: Medical Plan: Follow-up with vascular surgery. (3) Panic attacks: Code(s): F41.0 - Panic disorder [episodic paroxysmal anxiety] Category: Medical Plan: Follow-up with psychiatry. (4) Heroin use disorder, mild, in sustained remission: Code(s): F11.11 - Opioid abuse, in remission Category: Medical Plan: Follow-up with methadone clinic. (5) Paraplegia: Code(s): G82.20 - Paraplegia, unspecified Category: Medical Plan: Use wheelchair as needed. Orders: Orders Lipid Panel Today E78.5 - Hyperlipidemia, unspecified Comprehensive [place]. Panel Fast Today I73.9 - Peripheral vascular disease, unspecified Influenza [id number] Immunization Today Z23 - Encounter for immunization Referrals Psychiatry Referral F32.0 - Major depressive disorder, single episode, mild, F41.0 - Panic disorder [episodic paroxysmal anxiety]
[2024-05-23 10:44] VITALS: BP 122/74
== END 2024-05-23 11:04 | disposition home or self-care (01) ==
PROVIDERS: PCP Internal Medicine; Visit Provider Internal Medicine
DX: I73.9 Peripheral vascular disease, unspecified (principal); F32.0 Major depressive disorder, single episode, mild; F11.11 Opioid abuse, in remission; G82.20 Paraplegia, unspecified; F41.0 Panic disorder [episodic paroxysmal anxiety]

== ENCOUNTER → 2024-05-23 10:33 | Outpatient (BNVA) | payer OTHER, SELFPAY | PROVIDERS: PCP Internal Medicine; Visit Provider Internal Medicine | DX: Z23 Encounter for immunization (principal); F32.0 Major depressive disorder, single episode, mild; I73.9 Peripheral vascular disease, unspecified; F41.0 Panic disorder [episodic paroxysmal anxiety]; F11.11 Opioid abuse, in remission | CPT/HCPCS: 90471; 90656; 99212 ==

== ENCOUNTER 2024-09-24 13:28 | Outpatient (AMB) | payer OTHER, SELFPAY ==
--- NOTE | 2024-09-24 13:35 | A.OFFPC_ITS ---
Vital Signs 09/24/24 13:43 Height 5 ft 6 in Weight 253 lb BMI 40.8 BP 126/78 Blood Pressure Location Lt brachial Position Sitting Intake Visit Reasons: annual exam Intake Note: Patient here for a physical exam Supervisor Metalizing Required: Yes Supervisor Metalizing Language: Crime Victim Specialist Name: Cynthia Lucero MD Information Interpreted: non-clinical & clinical Accompanied by: Self / Same As Patient Allergies No Known Allergies Allergy (Verified 09/24/24 13:59) Medication List - Last Reconciled 09/24/24 by Cynthia Lucero MD acetaminophen 500 mg PO Q6H PRN 30 days [adult diapers pull-ups As directed] apixaban (Eliquis) 5 mg PO BID 90 days baclofen 10 mg PO QID 30 days bisacodyl 10 mg NM QPM PRN 50 days [cathteter straidght Use every 4 hours] cefuroxime axetil 500 mg PO BID cholecalciferol (vitamin D3) 25 mcg PO DAILY 90 days diclofenac sodium 1% (Aleve (diclofenac)) 2 grams topical QID 30 days docusate sodium 100 mg PO BID PRN 30 days [electric scooter As directed] gabapentin 400 mg PO QID [home delivery of methadone per clinic dose Start date: 03/30/2023 End date: 03/30/2024] hospital bed As directed hydroxyzine pamoate 25 mg PO BID PRN lactulose 10 grams (15 mL) PO BEDTIME PRN 90 days methadone 85 mg PO DAILY ftqydpcs-nmrx-SN-calcium-mins 9 mg iron-400 mcg 1 tab PO DAILY oxybutynin chloride 5 mg PO DAILY 90 days phenazopyridine 100 mg PO TID PRN 6 doses sennosides (senna) 17.2 mg (2 x 8.6 mg) PO DAILY 90 days sertraline 25 mg PO BEDTIME 90 days Ventolin HFA 90 mcg/actuation (albuterol sulfate) 2 puffs inhalation Q6H PRN 30 days NS [wipes As directed] zolpidem 10 mg PO BEDTIME PRN 30 days Tobacco use date assessed: 09/24/24 Dental Screening Dental Screen Date: 09/24/24 Did you have a dental visit in the last 12 months?: Yes Did you have a dental problem in the last 6 months where you did not have access to dental care?: No Was dental information given to patient?: Patient has dentist HPI HPI Comments History of Present Illness Details The patient is a 49-year-old male presenting for an annual physical examination. He has significant histories of pulmonary embolism and deep vein thrombosis, for which he is on Eliquis. He manages chronic pain with methadone, Baclofen, Gabapentin, and various other medications due to past spinal surgery. Wheelchair dependent due to paraplegia. His methadone dosage has been decreased to 60 mg, correlating with his chronic pain management and history of mild heroin use disorder. The patient states feelings of pain and swelling exacerbated by minimal mobility, notably after about 12 steps. Additionally, he describes constant abdominal pain with a burning sensation, raising concerns about further evaluation. His constipation, partly due to methadone, is managed with Bisacodyl and Lactulose. A rectal screening for cancer via colonoscopy or Cologuard test is pending. Social history reveals he previously smoked and drank, but has since ceased both activities. His depression and anxiety symptoms persist, as suggested by an PH Q-9 score of 6, prompting consideration for therapy referral. No significant medical issues are reported in immediate family history. - Annual physical exam conducted. - Review of vaccination status indicated tetanus vaccination is due next year. - Recommendation for colorectal cancer s creening via Cologuard. - Consideration for therapy referral for management of anxiety and depression due to elevated LPH Q-9 score. [facility] Medical History (Updated 09/24/24 @ 20:36 by Cynthia Lucero MD) Pulmonary embolism Elevated blood pressure reading without diagnosis of hypertension Heroin use disorder, mild Right upper quadrant abdominal pain Heroin use disorder, mild, in sustained remission Methadone use Class 1 obesity with body mass index (BMI) of 33.0 to 33.9 in adult Right leg DVT Hypertension Surgical History Keloid scar S/P spinal surgery Keloid scar of skin Family History Father No problems noted. Mother No problems noted. Social History Housing: House Alcohol intake: former Patient Tobacco Use Status: Former Tobacco user Cigarettes Per Day: 2 e-Cigarette/Vaping Use: Never Used Second Hand Smoke Exposure: No Substance Use Type: Crack/Cocaine and Heroin service: No Current occupational status: unemployed and disabled Cognitive needs: Yes Hearing needs: No Vision needs: No Questionnaire PHQ-9 Over the last 2 weeks, how often have you been bothered by any of the following problems? 1. Little interest or pleasure in doing things: not at all 2. Feeling down, depressed, or hopeless: more than half the days 3. Trouble falling or staying asleep, or sleeping too much: several days 4. Feeling tired or having little energy: several days 5. Poor appetite or overeating: not at all 6. Feeling bad about yourself - or that you are a failure or have let yourself or your family down: several days 7. Trouble concentrating on things, such as reading the newspaper or watching television: several days 8. Moving or speaking so slowly that other people could have noticed. Or the opposite - being so fidgety or restless that you have been moving around a lot more than usual: not at all 9. Thoughts that you would be better off or of hurting yourself in some way: not at all Total score: 6 Depression Screening Interpretation: Positive Depression Screening Follow-up: Existing condition, In treatment and Follow-up Visit Requested Depression Screening Done: Yes 92711 - PHQ-9 Billing: Yes Source: Developed by Drs. Klaus Powell, Delia Grajeda, Jonah Reveles and colleagues, with an educational saman from [employer]. Thrive Questionnaire Date Thrive assessed: 09/24/24 I am a: Patient What is your living situation today?: I have a steady place to live Within the past 12 months, did the food you bought not last and you didn't have the money to get more?: Never true Within the past 12 months, did you worry whether your food would run out before you got money to buy more?: Never true Do you have trouble paying for medicines?: No Do you have trouble getting transportation to medical appointments?: No Do you have trouble paying your heating and electricity bill?: No Do you have trouble taking care of your child, family member or friend?: No Do you have trouble with day-to-day activities such as bathing, preparing meals, shopping, managing finances, etc.?: Yes Are you currently unemployed and looking for a job?: No Are you interested in more education?: No Please select the resources that you would like help with: None Currently or been in a relationship where the following occur: No concerns reported THRIVE Score: 0 AUDIT C Alcohol Use Questionnaire (AUDIT-C) 1. How often do you have a drink containing alcohol?: Never Total Score: 0 Score Reviewed/Action Taken: No HERSON-7 AMB Questionnaire HERSON-7 Date HERSON - 7 assessed: 09/24/24 Feeling nervous, anxious, or on edge: 2 = More than half the days Not being able to stop or control worryin = Not at all Worrying too much about different things: 1 = Several days Trouble relaxin = Several days Being so restless that it is hard to sit still: 0 = Not at all Becoming easily annoyed or irritable: 1 = Several days Feeling afraid as if something awful might happen: 1 = Several days Total HERSON-7 score (0-4 normal; 5-9 mild; 10-14 moderate; 15-21 severe): 6 Source: Developed by Drs. Klaus Powell, Delia Grajeda, Jonah Reveles and colleagues, with an educational saman from [employer]. HERSON-7 Assessment Billing HERSON-7 Assessment Tool: HERSON-7 Assessment 83231 Review of Systems Const All systems reviewed & are unremarkable except as noted in HPI and below Card Denies chest pain at rest, Denies chest pain with activity, Denies edema, Denies irregular heart rhythm, Denies claudication, Denies dyspnea, Denies dyspnea on exertion, Denies orthopnea, Denies paroxysmal nocturnal dyspnea and Denies slow heart rate Resp Denies cough, Denies dyspnea and Denies dyspnea on exertion Musc Reports limited range of motion Physical exam (Primary Care) Vital Signs: Last Vital Signs BP 126/78 09/24/24 13:43 BMI result Body Mass Index 40.8 BMI Assessment/Plan discussion: High BMI High, discussed plan: lifestyle, weight reduction, dietary and physical activity Tobacco/Smoking Status: Tobacco use Status Tobacco use date assessed 09/24/24 09/24/24 13:53 Patient Tobacco Use Status Former Tobacco user 09/24/24 13:40 e-Cigarette/Vaping Use Never Used 09/24/24 13:40 PHQ-9: PHQ-9 Score PHQ-9: Total score 6 09/24/24 14:06 Depression Screening Interpretation: Positive Depression Screening Follow-up: Existing condition, In treatment and Follow-up Visit Requested Thrive Assessment: Date of Thrive Assessment Date Thrive assessed 09/24/24 09/24/24 13:40 Currently or been in a relationship where the following occur: No concerns reported Const Limitations: wheelchair HENMT Head: Yes normal to inspection, Yes normocephalic and Yes atraumatic Ears: external ears normal Eyes General: appearance normal, both eyes and all related structures Eyelids: Yes eyelids normal Conjunctivae: conjunctivae normal Neck Neck: Yes normal visual inspection and Yes supple Resp Effort & Inspection: normal respiratory effort Auscultation: clear to auscultation bilaterally Cardio Jugular venous distension: no JVD Rate: regular rate Rhythm: regular rhythm Heart sounds: S1 normal heart sound present and S2 normal heart sound present GI Inspection: Yes normal to inspection Palpation (GI): Soft to palpation and nontender Auscultation: normal bowel sounds Skin General skin exam: no rashes or lesions noted Psych Appearance: grossly normal Coding Level of Care Code Est Pt Level 3 (48163) Est Pt Prev Care 40-64y(56843) Diagnoses Physical exam Z00.00 Peripheral vascular disease I73.9 Mild major depression F32.0 Paraplegia G82.20 Heroin use disorder, mild, in sustained remission F11.11 Rash R21 Additional Codes HERSON-7 Assessment Billing - HERSON-7 Assessment Tool: HERSON-7 Assessment 51172 ([id number]) PHQ-9 - 04437 - PHQ-9 Billing: Yes ([id number]) Time Spent (min) 32 Assessment & Plan Assessment & Plan (1) Physical exam: Code(s): Z00.00 - Encounter for general adult medical examination without abnormal findings Category: Medical (2) Peripheral vascular disease: Code(s): I73.9 - Peripheral vascular disease, unspecified Category: Medical (3) Mild major depression: Code(s): F32.0 - Major depressive disorder, single episode, mild Category: Medical (4) Paraplegia: Code(s): G82.20 - Paraplegia, unspecified Category: Medical (5) Heroin use disorder, mild, in sustained remission: Code(s): F11.11 - Opioid abuse, in remission Category: Medical (6) Rash: Code(s): R21 - Rash and other nonspecific skin eruption Category: Medical Plan Management will continue for pulmonary embolism and deep vein thrombosis with Eliquis. Adjustment of methadone dosage remains as planned, and pain control measures will be monitored with a focus on increased mobility. Gastrointestinal symptoms will be continually evaluated, and constipation managed with Bisacodyl and Lactulose. An emphasis on colorectal cancer screening with Cologuard is to be enacted. Referral for mental health therapy is considered prudent in light of [facility] Q-9 score findings. Preventive measures include future tetanus vaccination planning, with ongoing encouragement for abstinence from smoking and alcohol to improve overall health outcomes. Patient was informed and verbally consented to the use of an ambient scribe for clinic note documentation during this visit. In my discussions with the patient, we reviewed the need to adhere to Eliquis for managing pulmonary embolism and deep vein thrombosis. We discussed adjusting his methadone dosage for chronic pain and its potential side effects, including constipation. The importance of conducting colorectal screening with Cologuard was emphasized due to his age and lack of prior screening interventions. I explained the connection between methadone and gastrointestinal symptoms and advocated for Bisacodyl and Lactulose to alleviate constipation. Additionally, we reviewed the patient?s mental health needs, reflected in the [facility] Q-9 score, and the potential benefits of therapy for his depression and anxiety. Lastly, I advised on maintaining general wellness by abstaining from smoking and alcohol a nd strategized for future tetanus vaccination. Orders: Orders Comprehensive [place]. Panel Fast Today Z00.00 - Encounter for general adult medical examination without abnormal findings Lipid Panel Today E78.5 - Hyperlipidemia, unspecified, Z00.00 - Encounter for general adult medical examination without abnormal findings Referrals Physical Medicine and Rehabilitation Referral G82.20 - Paraplegia, unspecified Cologuard Test Z12.11 - Encounter for screening for malignant neoplasm of colon, Z12.12 - Encounter for screening for malignant neoplasm of rectum Medications: New betamethasone valerate 0.1% 1 appl topical DAILY 30 days PRN 45 grams 2RF skin irritation Refilled [electric scooter] As directed 1 ea 0RF G82.20 - Paraplegia, unspecified Discontinued cefuroxime axetil Discontinued Reason: Patient Completed Course 500 mg PO BID 20 tabs 0RF Patient Instructions: - Continue Eliquis as prescribed. - Follow methadone dosing as adjusted at 60 mg and report any new or worsening symptoms. - Use Bisacodyl and Lactulose as directed to manage constipation. - Complete Cologuard test for colorectal cancer screening upon receipt. - Abstain from smoking and alcohol consumption. - Anticipate tetanus vaccination next year. - Consider referral to mental health therapy for support with depression and anxiety. - Follow up with any new or worsening symptoms or concerns.
[2024-09-24 13:43] VITALS: BP 126/78; BMI 40.8
== END 2024-09-24 14:11 | disposition home or self-care (01) ==
LOC: HO.HMCH 13:28
PROVIDERS: PCP Internal Medicine; Visit Provider Internal Medicine
DX: Z00.00 Encounter for general adult medical examination without abnormal findings (principal); R21 Rash and other nonspecific skin eruption; I73.9 Peripheral vascular disease, unspecified; F32.0 Major depressive disorder, single episode, mild; G82.20 Paraplegia, unspecified; F11.11 Opioid abuse, in remission

== ENCOUNTER → 2024-09-24 13:28 | Outpatient (BNVA) | payer OTHER, SELFPAY | PROVIDERS: PCP Internal Medicine; Visit Provider Internal Medicine | DX: Z00.01 Encounter for general adult medical examination with abnormal findings (principal); I73.9 Peripheral vascular disease, unspecified; F32.0 Major depressive disorder, single episode, mild; G82.20 Paraplegia, unspecified; F11.11 Opioid abuse, in remission; R21 Rash and other nonspecific skin eruption | CPT/HCPCS: 96127; 99212; 99396 ==

== ENCOUNTER 2024-10-12 07:26 | Outpatient (REF) | payer OTHER, SELFPAY ==
--- OUTSIDE RECORDS SUMMARY | 2024-10-12 07:30 | XMS_ITS | Clinical Summary ---
Author Organization [facility] ity Address [address] [place] [address] Care Team Providers Care Insurance Healthcare Consultant Name Role Phone Mercy Beckett MD Primary Care [facility] Social History Tobacco Use Types Packs/Day Years Used Date Smoking Tobacco: Never Assessed Sex and Gender Information Value Date Recorded Sex Assigned at Not on file Legal Sex Male 8:14 PM EST Gender Identity Not on file Sexual Orientation Not on file Plan of Treatment Health Maintenance Due Date Last Done Comments DTaP,Tdap,and Td Vaccines (1 - Tdap) 1996 Hepatitis B Vaccines (1 of 3 - 19+ 3-dose series) 1996 Cholesterol Screening (Lipid Panel) 08/03/2023 Colorectal Cancer Screening: Colonoscopy 08/03/2023 Depression Screening 08/03/2023 HIV Screening 08/03/2023 Hepatitis C Screening 08/03/2023 Social Influencers of Health Screening 08/03/2023 COVID-19 Vaccine (2023-2 5 season) 2024 Influenza Vaccine (#1) 2024 HIB Vaccines Aged Out No longer eligi ble based on patient's age to complete this topic HPV Vaccines Aged Out No longer eligi ble based on patient's age to complete this topic Hepatitis A Vaccines Aged Out No long er eligible based on patient's age to complete this topic IPV Vaccines Aged Out No longer eligi ble based on patient's age to complete this topic MMR Vaccines Aged Out No longer eligi ble based on patient's age to complete this topic Meningococcal ACWY Vaccine Aged Out N o longer eligible based on patient's age to complete this topic Meningococcal B Vacine Aged Out No lo nger eligible based on patient's age to complete this topic Pneumococcal Vaccine: Pediat rics (0 to 5 Years) and At-Risk Patients (6 to 64 Years) Aged Out No longer eligible b ased on patient's age to complete this topic RSV Immunization Patients Un jesús 20 months Aged Out No longer eligible b ased on patient's age to complete this topic Varicella Vaccines Aged Out No longer eligible based on patient's age to complete this topic Care Teams Insurance Healthcare Consultant Relationship Specialty Start Date End Date Mercy Beckett MD PCP - General 08/23/23
[2024-10-12 09:56] LABS: Alanine Aminotransferase 53 U/L (0-40); Albumin Level 4.4 g/dL (3.5-5.0); Alkaline Phosphatase 129 U/L (39-117); Anion Gap 12 (12-20); Aspartate Amino Transferase 46 U/L (5-37); Bilirubin Total 0.2 mg/dL (0.0-1.0); Blood Urea Nitrogen 16 mg/dL (9-16); Calcium 9.7 mg/dL (8.4-10.2); Carbon Dioxide 28 mmol/L (22-29); Chloride 103 mmol/L (96-108); Cholesterol 207 mg/dL (<200); Estimated Glomerular Filt Rate > 60; Glucose Fasting 108 mg/dL (60-99); HDL Cholesterol 31 mg/dL (>40); LDL Cholesterol Calculated 125 mg/dL (<100); Potassium 4.7 mmol/L (3.3-5.1); Sodium 138 mmol/L (135-145); Total Protein 7.9 g/dL (6.5-8.0); Triglycerides 257 mg/dL (<150)
== END 2024-10-12 07:27 | disposition home or self-care (01) ==
LOC: HO.LAB 07:26
PROVIDERS: PCP Internal Medicine; Visit Provider Internal Medicine
DX: Z00.00 Encounter for general adult medical examination without abnormal findings (principal); E78.5 Hyperlipidemia, unspecified
CPT/HCPCS: 36415; 80053; 80061

== ENCOUNTER 2025-03-27 07:55 | Outpatient (AMB) | payer OTHER, SELFPAY ==
[2025-03-27 07:59] VITALS: BP 118/68; PULSE 72; O2SAT 98; BMI 40.4
--- NOTE | 2025-03-27 07:59 | A.OFFPC_ITS ---
Vital Signs 03/27/25 07:59 Height 5 ft 6 in Weight 250 lb 7.122 oz BMI 40.4 BP 118/68 Blood Pressure Location Lt brachial Position Sitting Pulse 72 Pulse Source Pulse Oximeter Pulse Oximetry (%) 98 Oxygen Delivery Method Room Air Intake Visit Reasons: depression Software Design Analyst Required: No Accompanied by: Self / Same As Patient Allergies No Known Allergies Allergy (Verified 03/27/25 08:17) Medication List - Last Reconciled 03/27/25 by Cynthia Lucero MD acetaminophen 500 mg PO Q6H PRN 30 days [adult diapers pull-ups As directed] apixaban (Eliquis) 5 mg PO BID 90 days atorvastatin 20 mg PO BEDTIME 90 days baclofen 10 mg PO QID 30 days betamethasone valerate 0.1% 1 appl topical DAILY PRN 30 days bisacodyl 10 mg CA QPM PRN 50 days [cathteter straidght Use every 4 hours] cholecalciferol (vitamin D3) 25 mcg PO DAILY 90 days diclofenac sodium 1% 2 grams topical QID 30 days docusate sodium 100 mg PO BID PRN 30 days [electric scooter As directed] gabapentin 400 mg PO QID [home delivery of methadone per clinic dose Start date: 03/30/2023 End date: 03/30/2024] hospital bed As directed hydroxyzine pamoate 25 mg PO BID PRN 30 days lactulose 10 grams (15 mL) PO BEDTIME PRN 90 days methadone 85 mg PO DAILY jwgnkauz-dper-SS-calcium-mins 9 mg iron-400 mcg 1 tab PO DAILY oxybutynin chloride 5 mg PO DAILY 90 days sennosides (senna) 17.2 mg (2 x 8.6 mg) PO DAILY 90 days sertraline 25 mg PO BEDTIME 90 days Ventolin HFA 90 mcg/actuation (albuterol sulfate) 2 puffs inhalation Q6H PRN 30 days NS [wipes As directed] zolpidem 10 mg PO BEDTIME PRN 30 days Tobacco use date assessed: 09/24/24 Dental Screening Dental Screen Date: 09/24/24 HPI HPI Comments History of Present Illness Details The patient is a 50-year-old male presenting with management of multiple chronic conditions. The patient has a history of pulmonary embolism, which has been managed with medication to prevent further thrombotic events. He reports that his legs swell significantly, indicating ongoing issues with circulation. The patient is diagnosed with mixed hyperlipidemia, characterized by elevated cholesterol and triglyceride levels. He is currently on atorvastatin 20 mg to manage this condition, and repeat lipid panels are planned to monitor progress. The patient experiences chronic constipation, for which he uses bisacodyl, docusate, and lactulose as part of his management regimen. Despite these interventions, he continues to report constipation. Neuropathy is another condition affecting the patient, for which gabapentin is prescribed to manage symptoms. The patient has a history of heroin use disorder, currently in remission, and is maintained on methadone therapy. He reports abstinence from heroin for over a year, indicating successful management of his substance use disorder. Constipation stable with medications as needed. He is on a wheelchair due to lumbar stenosis and receives gabapentin for his neuropathy. Anxiety is managed with hydroxyzine, and the patient also reports urinary incontinence, for which oxybutynin is prescribed. The patient is treated for depression with sertraline, prescribed by psychiatry. He is advised to seek a local psychiatrist for ongoing management, as his current provider is not accessible. Preventative care includes a recent Cologuard test, which was negative, with the next screening scheduled for 2027. The patient has a keloid scar, which is noted to be a cosmetic issue without significant health impact. [facility] Medical History (Updated 03/27/25 @ 08:33 by Cynthia Lucero MD) Mild major depression Pulmonary embolism Elevated blood pressure reading without diagnosis of hypertension Heroin use disorder, mild Right upper quadrant abdominal pain Heroin use disorder, mild, in sustained remission Methadone use Class 1 obesity with body mass index (BMI) of 33.0 to 33.9 in adult Right leg DVT Hypertension Surgical History Keloid scar S/P spinal surgery Keloid scar of skin Family History Father No problems noted. Mother No problems noted. Social History Housing: House Alcohol intake: former Patient Tobacco Use Status: Former Tobacco user Tobacco use type: Cigarette Cigarettes Per Day: 2 e-Cigarette/Vaping Use: Never Used Second Hand Smoke Exposure: No Substance Use Type: Crack/Cocaine and Heroin service: No Current occupational status: unemployed and disabled Cognitive needs: Yes Hearing needs: No Vision needs: No Questionnaire PHQ-9 Over the last 2 weeks, how often have you been bothered by any of the following problems? 1. Little interest or pleasure in doing things: more than half the days 2. Feeling down, depressed, or hopeless: more than half the days 3. Trouble falling or staying asleep, or sleeping too much: more than half the days 4. Feeling tired or having little energy: more than half the days 5. Poor appetite or overeating: more than half the days 6. Feeling bad about yourself - or that you are a failure or have let yourself or your family down: more than half the days 7. Trouble concentrating on things, such as reading the newspaper or watching television: more than half the days 8. Moving or speaking so slowly that other people could have noticed. Or the opposite - being so fidgety or restless that you have been moving around a lot more than usual: more than half the days 9. Thoughts that you would be better off or of hurting yourself in some way: not at all Total score: 16 Depression Screening Interpretation: Positive Depression Screening Follow-up: Existing condition, In treatment and Follow-up Visit Requested Depression Screening Done: Yes 30007 - PHQ-9 Billing: Yes Source: Developed by Drs. Klaus Powell, Delia Grajeda, Jonah Reveles and colleagues, with an educational saman from [employer]. Thrive Questionnaire Date Thrive assessed: 03/25/25 I am a: Patient What is your living situation today?: I choose not to answer this question Within the past 12 months, did the food you bought not last and you didn't have the money to get more?: I choose not to answer this question Within the past 12 months, did you worry whether your food would run out before you got money to buy more?: Often true Do you have trouble paying for medicines?: Yes Do you have trouble getting transportation to medical appointments?: No Do you have trouble paying your heating and electricity bill?: Yes Do you have trouble taking care of your child, family member or friend?: No Do you have trouble with day-to-day activities such as bathing, preparing meals, shopping, managing finances, etc.?: Yes Are you currently unemployed and looking for a job?: I choose not to answer this question Are you interested in more education?: Yes Please select the resources that you would like help with: Housing/Residential, Food, Utilities and Daily support Currently or been in a relationship where the following occur: No concerns reported THRIVE Score: 2 AUDIT C Alcohol Use Questionnaire (AUDIT-C) 1. How often do you have a drink containing alcohol?: Never 3. How often do you have six or more drinks on one occasion?: Never Total Score: 0 Score Reviewed/Action Taken: No HERSON-7 AMB Questionnaire HERSON-7 Date HERSON - 7 assessed: 03/27/25 Feeling nervous, anxious, or on edge: 2 = More than half the days Not being able to stop or control worryin = More than half the days Worrying too much about different things: 2 = More than half the days Trouble relaxin = More than half the days Being so restless that it is hard to sit still: 2 = More than half the days Becoming easily annoyed or irritable: 2 = More than half the days Feeling afraid as if something awful might happen: 0 = Not at all Total HERSON-7 score (0-4 normal; 5-9 mild; 10-14 moderate; 15-21 severe): 12 Source: Developed by Drs. Klaus Powell, Delia Grajeda, Jonah Reveles and colleagues, with an educational saman from [employer]. HERSON-7 Assessment Billing HERSON-7 Assessment Tool: HERSON-7 Assessment 86722 Review of Systems Const All systems reviewed & are unremarkable except as noted in HPI and below ENT Denies change in voice, Denies nasal discharge and Denies sinus pain Card Denies chest pain at rest, Denies chest pain with activity, Denies edema, Denies irregular heart rhythm, Denies claudication, Denies orthopnea, Denies paroxysmal nocturnal dyspnea and Denies slow heart rate Physical exam (Primary Care) Vital Signs: Last Vital Signs Pulse 72 03/27/25 07:59 BP 118/68 03/27/25 07:59 Pulse Ox 98 03/27/25 07:59 Oxygen Delivery Method Room Air 03/27/25 07:59 BMI result Body Mass Index 40.4 BMI Assessment/Plan discussion: High BMI High, discussed plan: lifestyle, weight reduction, dietary and physical activity Tobacco/Smoking Status: Tobacco use Status Tobacco use date assessed 09/24/24 03/27/25 08:04 Patient Tobacco Use Status Former Tobacco user 03/27/25 08:04 Tobacco use type Cigarette 03/27/25 08:04 e-Cigarette/Vaping Use Never Used 03/27/25 08:04 PHQ-9: PHQ-9 Score PHQ-9: Total score 16 03/27/25 08:04 Depression Screening Interpretation: Positive Depression Screening Follow-up: Existing condition, In treatment and Follow-up Visit Requested Thrive Assessment: Date of Thrive Assessment Date Thrive assessed 03/25/25 03/27/25 08:04 Currently or been in a relationship where the following occur: No concerns reported Resp Effort & Inspection: normal respiratory effort Auscultation: clear to auscultation bilaterally Cardio Jugular venous distension: no JVD Rate: regular rate Rhythm: regular rhythm Heart sounds: S1 normal heart sound present and S2 normal heart sound present Coding Level of Care Code Est Pt Level 4 (03207) Complex EM visit Add On G2211 Diagnoses Moderate recurrent major depression F33.1 Heroin use disorder, mild, in sustained remission F11.11 Morbid obesity with BMI of 40.0-44.9, adult E66.01; Z68.41 Constipation due to opioid therapy K59.03; T40.2X5A Paraplegia G82.20 Additional Codes HERSON-7 Assessment Billing - HERSON-7 Assessment Tool: HERSON-7 Assessment 86641 ([id number]) PHQ-9 - 38816 - PHQ-9 Billing: Yes ([id number]) Time Spent (min) 21 Assessment & Plan Assessment & Plan (1) Moderate recurrent major depression: Code(s): F33.1 - Major depressive disorder, recurrent, moderate Category: Medical (2) Heroin use disorder, mild, in sustained remission: Code(s): F11.11 - Opioid abuse, in remission Category: Medical (3) Morbid obesity with BMI of 40.0-44.9, adult: Code(s): E66.01 - Morbid (severe) obesity due to excess calories; Z68.41 - Body mass index [BMI] 40.0-44.9, adult Category: Medical (4) Constipation due to opioid therapy: Code(s): K59.03 - Drug induced constipation; T40.2X5A - Adverse effect of other opioids, initial encounter Category: Medical (5) Paraplegia: Code(s): G82.20 - Paraplegia, unspecified Category: Medical Plan Plan Patient was informed and verbally consented to the use of an ambient scribe for clinic note documentation during this visit. 1. Pulmonary Embolism The patient continues to manage his pulmonary embolism with medication to prevent further thrombotic events. Regular follow-up is necessary to monitor for any recurrence or complications. 2. Mixed Hyperlipidemia The patient is on atorvastatin 20 mg for mixed hyperlipidemia. Repeat lipid panels are planned to assess the effectiveness of the treatment and adjust as necessary. 3. Constipation The patient uses bisacodyl, docusate, and lactulose to manage chronic constipation. Continued monitoring and adjustment of medications may be required based on symptom persistence. 4. Neuropathy Gabapentin is prescribed for neuropathy symptoms. The patient should report any changes in symptoms or side effects for further evaluation. 5. Heroin Use Disorder, In Remission The patient is maintained on methadone therapy for heroin use disorder, which is currently in remission. Continued abstinence and regular follow-up are encouraged to support recovery. 6. Anxiety Hydroxyzine is used to manage anxiety symptoms. The patient should continue to monitor symptoms and seek further psychiatric evaluation if needed. 7. Urinary Incontinence Oxybutynin is prescribed for urinary incontinence. The patient should report any changes in symptoms or side effects for further evaluation. 8. Depression The patient is treated with sertraline for depression. It is recommended to find a local psychiatrist for ongoing management and medication adjustments as needed. 9. Keloid Scar The keloid scar is noted to be a cosmetic issue without significant health impact. No intervention is currently planned unless the patient desires cosmetic treatment.
--- OUTSIDE RECORDS SUMMARY | 2025-03-27 08:00 | XMS_ITS | Clinical Summary ---
Author Organization [facility] Address [address] [place] [address] Phone Care Team Providers Care Cardiology Associate Name Role Phone Nidia Hernandez Primary Care Provider Social History Tobacco Use Types Packs/Day Years [...] Panel) 08/03/2023 Colorectal Cancer Screening: Colonoscopy 08/03/2023 HIV Screening 08/03/2023 Hepatitis C Screening 08/03/2023 Social Influencers of Health Screening 08/03/2023 Depression Screening 07/10/2024 COVID-19 Vaccine ( - 2023-2 5 season) 2025 Influenza Vaccine (#1) 2025 05/23/2024 HIB Vaccines Aged Out No longer eligi [...] age to complete this topic Meningococcal B Vaccine Aged Out No l onger eligible based on patient's age to complete this topic Pneumococcal Vaccine: Pediat rics (0 to 5 Years) and At-Risk Patients (6 to 49 Years) Aged Out No longer eligi ble based on patient's age to complete this topic RSV Immunization Patients Un jesús 20 months Aged Out No longer eligible b ased on patient's age to complete this topic Varicella Vaccines Aged Out No longer eligible based on patient's age to complete this topic Insurance MEDICAID - [place] Care Teams Cardiology Associate Relationship Specialty Start Date End Date Nidia Hernandez PA [address] [place] [address] PCP - General Oncology 11/29/24
== END 2025-03-27 08:29 | disposition home or self-care (01) ==
LOC: HO.HMCH 07:56
PROVIDERS: PCP Internal Medicine; Visit Provider Internal Medicine
DX: G82.20 Paraplegia, unspecified (principal); F33.1 Major depressive disorder, recurrent, moderate; E66.01 Morbid (severe) obesity due to excess calories; Z68.41 Body mass index [BMI] 40.0-44.9, adult; F11.11 Opioid abuse, in remission; K59.03 Drug induced constipation; T40.2X5A Adverse effect of other opioids, initial encounter

== ENCOUNTER → 2025-03-27 07:55 | Outpatient (BNVA) | payer OTHER, SELFPAY | PROVIDERS: PCP Internal Medicine; Visit Provider Internal Medicine | DX: E78.2 Mixed hyperlipidemia (principal); G62.9 Polyneuropathy, unspecified; F11.21 Opioid dependence, in remission; F41.9 Anxiety disorder, unspecified; F33.1 Major depressive disorder, recurrent, moderate; E66.01 Morbid (severe) obesity due to excess calories; G82.20 Paraplegia, unspecified; K59.03 Drug induced constipation; R32 Unspecified urinary incontinence; L90.5 Scar conditions and fibrosis of skin; T40.2X5A Adverse effect of other opioids, initial encounter; Z86.711 Personal history of pulmonary embolism; Z68.41 Body mass index [BMI] 40.0-44.9, adult; Z79.899 Other long term (current) drug therapy | CPT/HCPCS: 96127; 99212 ==